=== PATIENT | male | born 1955 | race Caucasian/White ===

== ENCOUNTER 2016-12-02 11:10 | Inpatient (IN) | payer BC ==
[~2016-12-02] VITALS: Ht 177.8 cm; Wt 125.0 kg
[~2016-12-02 11:10] MED LIST: AMAR4TAB PO; ASPI81CH CHEW; AVANDAMET PO; DIOV80TA4 PO; FISH1000 PO; FURO20TA PO; LANTUS2P SQ; LANTUSP SQ; METF500T PO; METO25TA3 PO; NOVOLOGP2 SQ; SIMV80TA PO; VALS1TAB64 PO; ZOCO40TA PO
[2016-12-02] MEDS ORDERED: BISACODYL 10 MG SUPP RECTAL PRN (12:15)
[2016-12-02] MEDS ORDERED: LACTULOSE SYRUP 20 GM/30 ML CUP PO PRN (12:15)
[2016-12-02] MEDS ORDERED: ACETAMINOPHEN 325 MG TAB PO PRN ×2 (12:15)
[2016-12-02] MEDS ORDERED: DEXTROSE 50% IN WATER 50 ML VIAL(D50) IV PRN (12:15)
[2016-12-02] MEDS ORDERED: MAGNESIUM HYDROXIDE SUSP 30 ML CUP PO PRN (12:15)
[2016-12-02] MEDS ORDERED: ONDANSETRON HCL 4 MG/2 ML VIAL IVP PRN (12:15)
[2016-12-02] MEDS ORDERED: GLUCAGON 1 MG/ML VIAL OTHER PRN (12:15)
[2016-12-02] MEDS ORDERED: SENNOSIDES 8.6 MG TAB PO PRN (12:15)
[2016-12-02] MEDS ORDERED: ACETAMINOPHEN/HYDROcodone 325 MG/5 MG TAB PO PRN (12:15)
[2016-12-02] MEDS ORDERED: NALOXONE HCL 0.4 MG/ML AMP IV PRN (12:15)
[2016-12-02 16:00] VITALS: BP 147/69; PULSE 78; RESP 18; TEMP 98.3; O2SAT 96
[2016-12-02] MEDS ORDERED: Vancomycin Consult Pharmacy 1 EA OTHER SCH (16:45)
--- NOTE | 2016-12-02 17:02 | HHI.HP ---
[facility] Non-Staff Admission Diagnosis Diagnoses: Chief Complaint: Right foot pain, swelling Travel History International Travel<30 Days: No Contact w/Intl Traveler <30 Da: No Traveled to Known Affected Are: No History of Present Illness Written by Jeffery Webber, acting as scribe for Dr. Corey on 12/02/16 at 16: 36. Patient is a 61-year-old male with primary medical history of diabetes, hypertension, GERD, HLD who came in to the emergency department in [place] for evaluation of right foot pain and swelling. He was subsequently transferred to the [facility]. Patient states that 3 months ago he twisted his ankle but has never seen anybody to evaluate because he was able to walk, move around and never really had problems until about a week ago when he started noticing the right foot pain, swelling, and redness of his foot. He was due to see insole stiffener in [facility] on Sunday. But because of increasing pain he was unable to wait for the appointment that he went to the ED for evaluation. He states he noticed his right foot has been red and swollen and it goes all the way to his right leg mid calf portion. Also reported to have some bleeding today after he took off his shoes in the ED. states right pain has subsided rated 6/10, dull aching, nonradiating, relieved by pain medication, not aggravated by anything. Reports caffeine headache today, light cough but does not expectorate anything. Occasional diarrhea due to metformin use. Otherwise, denies SOB/ dyspnea. Denies chest pain, palpitations, dizziness. Denies fevers , chills, n/v. Denies dysuria. Foot x-ray showed significant soft tissue swelling is noted of the second toe. There is a focal deformity involving the proximal phalanx at the interphalangeal joint. There is a depression of the articulating surface and focal cortical disruption. Chest x-ray showed no acute disease Review of Systems Except as stated in HPI: all other systems reviewed are Neg Past Family Social History Past Medical History DM 2 Hypertension Hand trauma GERD HLD Past Surgical History Right knee arthroscopy Bilateral carpal tunnel release CABG 4 Stents 2 Reported Medications Reported Meds & Active Scripts Active Reported Lantus Inj (Insulin Glargine) 1,000 Unit/10 Ml Vial 90 Units SQ HS Novolog Inj (Insulin Aspart) 1,000 Unit/10 Ml Vial 18 Units SQ ACHS Max dose at bedtime:( )units; sugars less than 70,(0) units; sugars 150-199,(5) units; sugars 200-249,(10) units; sugars 250-299,(15) units; sugars 300-349,(20)units; sugars greater than 349,(25)units Metoprolol Tartrate 25 Mg Tab 25 Mg PO BID Simvastatin 80 Mg Tab 80 Mg PO DAILY Metformin (Metformin HCl) 500 Mg Tab 500 Mg PO BIDPC With meals Furosemide 20 Mg Tab 20 Mg PO BID Aspirin 81 Mg Chew 81 Mg CHEW DAILY Valsartan 80 Mg Tab 80 Mg PO DAILY Allergies: Coded Allergies: No Known Allergies (Verified , 12/02/16) Active Ordered Medications Current Medications Medications (Trade) Dose Ordered Sig/Librado Route Start Time Stop Time Status Last Admin (Tylenol) 650 mg Q4H PRN PO 12/02/16 12:15 (Zofran Inj) 4 mg Q6H PRN IVP 12/02/16 12:15 (Heparin Inj) 5,000 units Q12H SQ 12/02/16 17:00 (Tylenol) 650 mg Q6H PRN PO 12/02/16 12:15 ([place] 5-325 Mg) 1 tab Q4H PRN PO 12/02/16 12:15 ([place] 7.5-325 Mg) 1 tab Q4H PRN PO 12/02/16 12:15 (Narcan Inj) 0.4 mg UNSCH PRN IV 12/02/16 12:15 (Sachi-Colace) 1 tab BID PO 12/02/16 21:00 (Milk Of Magnesia Liq) 30 ml Q12H PRN PO 12/02/16 12:15 (Senokot) 17.2 mg Q12H PRN PO 12/02/16 12:15 (Dulcolax Supp) 10 mg DAILY PRN RECTAL 12/02/16 12:15 (Lactulose Liq) 30 ml DAILY PRN PO 12/02/16 12:15 (D50w (Vial) Inj) 50 ml UNSCH PRN IV 12/02/16 12:15 Glucagon 1 mg 1 mg UNSCH PRN OTHER 12/02/16 12:15 (NS + KCl 20 Meq Inj) 1,000 ml @ 42 mls/hr [id number] IV 12/02/16 16:00 Family History Family history of heart disease and diabetes Social History Rare alcohol use Denies tobacco use Denies illicit drug use Physical Exam Vital Signs Vital Signs Date Time Temp Pulse Resp B/P Pulse Ox O2 Delivery O2 Flow Rate FiO2 12/02/16 16:00 98.3 78 18 147/69 96 Physical Exam GENERAL: This is a well-nourished, well-developed patient, in no apparent distress. SKIN: Right foot edema +2, erythema 2nd toe extending to right lower extremity. Wound opening plantar area, proximal to the 2nd toe, scant amount serous fluid. HEAD: Atraumatic. Normocephalic. EYES: Pupils equal round and reactive. Extraocular motions intact. No scleral icterus. No injection or drainage. ENT: Nose without bleeding, purulent drainage or septal hematoma. Throat without erythema, tonsillar hypertrophy or exudate. Uvula midline. Airway patent. NECK: Trachea midline. Supple. CARDIOVASCULAR: Regular rate and rhythm without murmurs, gallops, or rubs. RESPIRATORY: Clear to auscultation. Breath sounds equal bilaterally. No wheezes , rales, or rhonchi. GASTROINTESTINAL: Abdomen soft, non-tender, nondistended. Bowel sounds active 4. Non-guarding. MUSCULOSKELETAL: Extremities without clubbing, cyanosis, right lower extremity + 2 edema. NEUROLOGICAL: Awake and alert. Oriented to person, time, place. Motor and sensory grossly within normal limits. Normal speech. Laboratory WBC 10.1 Neutrophil % 76.6 BUN 17 Creatinine 1.40 EGFR 51 Lactic acid 1.9 Imaging Foot x-ray showed significant soft tissue swelling is noted of the second toe. There is a focal deformity involving the proximal phalanx at the interphalangeal joint. There is a depression of the articulating surface and focal cortical disruption. Chest x-ray showed no acute disease Assessment and Plan Problem List: (1) Diabetes ICD Code: E11.9 Status: Chronic (2) Osteomyelitis of ankle or foot, acute ICD Code: M86.179 Status: Acute (3) SETH (acute kidney injury) ICD Code: N17.9 Status: Acute (4) HTN (hypertension) ICD Code: I10 Status: Acute Assessment and Plan Patient is a 61-year-old male with primary medical history of diabetes, hypertension, GERD, HLD who came in to the emergency department in [place] for evaluation of right foot pain and swelling. He was subsequently transferred to the main hospital. Osteomyelitis Cellulitis right foot, leg - History of diabetes, 3 months ago twisted his ankle was never evaluated. 1 week right foot swelling and pain. - Foot x-ray showed significant soft tissue swelling is noted of the second toe. There is a focal deformity involving the proximal phalanx at the interphalangeal joint. There is a depression of the articulating surface and focal cortical disruption. - Vancomycin IV, Zosyn IV - MRI of the foot, follow-up results - Podiatry consult input appreciated - Check labs ESR, CRP, follow-up labs tomorrow CBC, BMP - IV fluids for hydration - Pain management - Discuss and explained with patient and all the plans including imaging studies, possible surgical intervention and amputation, risks. All questions have been addressed. Agrees with plan. DM 2 - Hold metformin for now secondary to increased creatinine. - Start home medication basal insulin, insulin sliding scale - Monitor Accu-Cheks - Monitor for hypoglycemia Acute kidney injury, possible CK D - Unknown baseline - Possibly have diabetic nephropathy - Avoid nephrotoxins - IV fluids for hydration - Trend BMP CAD, Hx CABG 4 HTN - Continue aspirin 81 mg, valsartan 80 mg daily, metoprolol 25 mg twice a day - Lasix 20 mg twice a day - Monitor BP trend Cough - Chest x-ray showed no acute disease DVT prop heparin This note was transcribed by natalia Webber. I, Dr. Greyson Corey personally performed the history, physical exam, and medical decision making; and confirmed the accuracy of the information in the transcribed note. Authenticated by Dr. Greyson Corey on 12/02/16 at 17:50. Code Status Full code Discussed Condition With Patient, , nursing, ED attending Physician Certification 2 Midnight Certification Type: Admission for Inpatient Services Order for Inpatient Services The services are ordered in accordance with Medicare regulations or non- Medicare payer requirements, as applicable. In the case of services not specified as inpatient-only, they are appropriately provided as inpatient services in accordance with the 2-midnight benchmark. Estimated LOS (days): 3 days is the estimated time the patient will need to remain in the hospital, assuming treatment plan goals are met and no additional complications. Post-Hospital Plan: Not yet determined Jeffery Mcfadden Dec 02, 2016 17:01 Greyson Corey MD Dec 02, 2016 17:51
[2016-12-02] MEDS: NS + KCL 20 MEQ INJ 1,000 ML IV SCH (17:33)
[2016-12-02] MEDS: PIPERACIL-TAZO 3.375 GM PREMIX 50 ML IV SCH (17:33)
[2016-12-02] MEDS: FUROSEMIDE 20 MG TAB PO SCH (17:34)
[2016-12-02] MEDS: HEPARIN SODIUM - SQ 10,000 UNITS/ML VIAL SQ SCH (17:34)
[2016-12-02] MEDS: INSULIN ASPART SUPPLEMENTAL SCALE SQ SCH ×2 (17:38→23:13)
[2016-12-02 18:01] VITALS: PULSE 80
[2016-12-02 19:04] VITALS: BP 143/68; PULSE 77; RESP 18; TEMP 97.7; O2SAT 95
[2016-12-02] MEDS ORDERED: GADODIAMIDE PF 287 MG/ML 20 ML VIAL (for RAD MRI) IV ONE (20:20)
--- NOTE | 2016-12-02 20:42 | RADRPT ---
EXAM DATE/TIME: 12/02/2016 19:56 This report includes an Addendum and supersedes previous reports for this exam. [facility] COMPARISON: FOOT RIGHT COMPLETE ([id number]), December 02, 2016, 9:54. INDICATIONS : Osteomyelitis. CONTRAST: 20 cc Omniscan (gadodiamide) IV MEDICAL HISTORY : Hypertension. Diabetes mellitus type 2. SURGICAL HISTORY : CABG ENCOUNTER: Initial ACUITY: 1 week PAIN SCORE: 0/10 LOCATION: Right foot TECHNIQUE: Multiplanar, multisequence MRI examination was performed without contrast and after the intravenous a dministration of gadolinium. FINDINGS: There is abnormal marrow involving the second proximal phalanx with possibly a fracture at this site as well. It extends to the PIP joint and there is edema and enhancement of the surrounding soft tissues. CONCLUSION: Abnormal marrow of the second proximal phalanx could represent osteomyelitis with possibly superimpos ed fracture and clinical correlation is needed. Maciej Taveras MD on December 02, 2016 at 20:36 Board Certified Radiologist. This report was verified electronically. ADDENDUM: The patient has a history of a fracture of the second proximal phalanx involving the articular surfac e at the PIP joint. The findings of abnormal bone marrow edema, and enhancement of the marrow and sof t tissues surrounding the second digit can be related to the actual fracture however in the upper upp er clinical setting osteomyelitis can also have this appearance. There is a prominent amount of subcu taneous edema identified. No focal fluid collections are seen to suggest abscess at this time. Jaerd Tomlin MD on December 03, 2016 at 4:02 Board Certified Radiologist. This report was verified electronically.
[2016-12-02] MEDS ORDERED: INSULIN ASPART 1,000 UNITS/10 ML VIAL SQ SCH (21:00)
[2016-12-02 21:41] VITALS: PULSE 78
[2016-12-02] MEDS: DOCUSATE SODIUM 50 MG/SENNA 8.6 MG TAB PO SCH (23:10)
[2016-12-02] MEDS: METOPROLOL TARTRATE 25 MG TAB PO SCH (23:10)
[2016-12-02] MEDS: INSULIN DETEMIR 100 UNITS/ML VIAL SQ SCH (23:14)
[2016-12-02 23:31] VITALS: BP 137/62; PULSE 89; RESP 18; TEMP 98.4; O2SAT 96
[2016-12-03] MEDS: PIPERACIL-TAZO 3.375 GM PREMIX 50 ML IV SCH ×3 (02:28→17:27)
[2016-12-03] MEDS: VANCOMYCIN 1,500 MG/NS 500 ML IV SCH ×2 (03:33)
[2016-12-03 03:45] VITALS: BP 145/73; PULSE 75; RESP 17; TEMP 97.6; O2SAT 97
--- NOTE | 2016-12-03 03:54 | PD.CONS ---
History of Present Illness Service podiatry Consult Requested By ED Reason for Consult infection of R foot Primary Care Physician Non-Staff Diagnoses: History of Present Illness Patient twisted ankle 3 mos ago and never had foot/ankle evaluated. He says he had pain initially after the injury, but did not have pain again until 1 week ago. He was found to have bony abnormality noted in 2nd toe on XRay of foot and was sent here from [facility] ED. He also has wound to plantar forefoot area of unknown age with purulent drainage and erythema streaking up his leg with swelling to the foot/ankle. Past Family Social History Allergies: Coded Allergies: No Known Allergies (Verified , 12/02/16) Past Medical History DM 2 Hypertension Hand trauma GERD HLD Past Surgical History Right knee arthroscopy Bilateral carpal tunnel release CABG 4 Stents 2 Active Ordered Medications Current Medications Medications (Trade) Dose Ordered Sig/Librado Route Start Time Stop Time Status Last Admin (Tylenol) 650 mg Q4H PRN PO 12/02/16 12:15 (Zofran Inj) 4 mg Q6H PRN IVP 12/02/16 12:15 (Heparin Inj) 5,000 units Q12H SQ 12/02/16 17:00 12/02/16 17:34 (Tylenol) 650 mg Q6H PRN PO 12/02/16 12:15 ([place] 5-325 Mg) 1 tab Q4H PRN PO 12/02/16 12:15 ([place] 7.5-325 Mg) 1 tab Q4H PRN PO 12/02/16 12:15 (Narcan Inj) 0.4 mg UNSCH PRN IV 12/02/16 12:15 (Sachi-Colace) 1 tab BID PO 12/02/16 21:00 12/02/16 23:10 (Milk Of Magnesia Liq) 30 ml Q12H PRN PO 12/02/16 12:15 (Senokot) 17.2 mg Q12H PRN PO 12/02/16 12:15 (Dulcolax Supp) 10 mg DAILY PRN RECTAL 12/02/16 12:15 (Lactulose Liq) 30 ml DAILY PRN PO 12/02/16 12:15 (D50w (Vial) Inj) 50 ml UNSCH PRN IV 12/02/16 12:15 Glucagon 1 mg 1 mg UNSCH PRN OTHER 12/02/16 12:15 (NS + KCl 20 Meq Inj) 1,000 ml @ 42 mls/hr [id number] IV 12/02/16 16:00 12/02/16 17:33 (Aspirin Chew) 81 mg DAILY CHEW 12/03/16 09:00 (Lasix) 20 mg BID@09,18 PO 12/02/16 18:00 12/02/16 17:34 (Levemir Inj) 90 units HS SQ 12/02/16 21:00 12/02/16 23:14 (Lopressor) 25 mg BID PO 12/02/16 21:00 12/02/16 23:10 Valsartan 80 mg 80 mg DAILY PO 12/03/16 09:00 Pharmacy Profile Note 0 ml @ 0 mls/hr UNSCH OTHER 12/02/16 16:45 (Zosyn 3.375 Gm Premix) 50 ml @ 100 mls/hr Q8H IV 12/02/16 18:00 12/03/16 02:28 Atorvastatin Calcium 40 mg 40 mg DAILY PO 12/03/16 09:00 (Vancomycin Inj/ NS 500 ml Inj) 515 ml @ 257.5 mls/ hr Q24H IV 12/03/16 02:00 12/03/16 03:33 Miscellaneous Information SPECIFIC LAB TO BE VALDO... ONCE ONCE .XX 12/05/16 01:45 12/05/16 01:46 (Pneumovax-23 Inj) 25 mcg ONCE ONCE IM 12/03/16 10:00 12/03/16 10:01 Family History Family history of heart disease and diabetes Social History Rare alcohol use Denies tobacco use Denies illicit drug use Physical Exam Vital Signs Vital Signs Date Time Temp Pulse Resp B/P Pulse Ox O2 Delivery O2 Flow Rate FiO2 12/02/16 23:31 98.4 89 18 137/62 96 12/02/16 21:41 78 12/02/16 19:04 97.7 77 18 143/68 95 12/02/16 18:01 80 12/02/16 16:00 98.3 78 18 147/69 96 Physical Exam R foot with palpable pedal pulses. Erythema to dorsal forefoot and edema to R foot diffusely. Plantar to 2nd toe area at ball of foot has ulceration present, 0.3 cm diameter , with positive probe to bone. Milkly white purulence expressed from the area with pain to palpation. Erythema and edema to 2nd digit. Sausaging present. Sensation absent to light touch/sharp-dull. Laboratory Laboratory Tests Test 12/03/16 05:30 White Blood Count 9.7 TH/MM3 Red Blood Count 4.40 MIL/MM3 Hemoglobin 13.0 GM/DL Hematocrit 38.2 % Mean Corpuscular Volume 86.7 FL Mean Corpuscular Hemoglobin 29.6 PG Mean Corpuscular Hemoglobin 34.1 % Concent Red Cell Distribution Width 13.5 % Platelet Count 270 TH/MM3 Mean Platelet Volume 8.5 FL Neutrophils (%) (Auto) 73.4 % Lymphocytes (%) (Auto) 14.0 % Monocytes (%) (Auto) 7.6 % Eosinophils (%) (Auto) 4.5 % Basophils (%) (Auto) 0.5 % Neutrophils # (Auto) 7.1 TH/MM3 Lymphocytes # (Auto) 1.4 TH/MM3 Monocytes # (Auto) 0.7 TH/MM3 Eosinophils # (Auto) 0.4 TH/MM3 Basophils # (Auto) 0.0 TH/MM3 CBC Comment DIFF FINAL Differential Comment Sodium Level 137 MEQ/L Potassium Level 3.6 MEQ/L Chloride Level 101 MEQ/L Carbon Dioxide Level 24.6 MEQ/L Anion Gap 11 MEQ/L Blood Urea Nitrogen 18 MG/DL Creatinine 1.25 MG/DL Estimat Glomerular Filtration 59 ML/MIN Rate Random Glucose 204 MG/DL Calcium Level 8.8 MG/DL Imaging Last Impressions Foot MRI 12/02/16 0000 Signed Impressions: Service Date/Time: Friday, December 02, 2016 19:56 - CONCLUSION: Abnormal marrow of the second proximal phalanx could represent osteomyelitis with possibly superimposed fracture and clinical correlation is needed. Maciej Taveras MD Assessment and Plan Assessment and Plan Abscess R foot with osteomyelitis R 2nd toe NPO now To OR for I&D R foot with possible amputation R 2nd toe. Discussed MRI findings correlated clinically with positive probe to bone and osteomyelitis is likely present to 2nd toe. Isael Whitt DPM Dec 03, 2016 03:54
[2016-12-03] MEDS: HEPARIN SODIUM - SQ 10,000 UNITS/ML VIAL SQ SCH ×2 (06:34→17:00)
[2016-12-03] MEDS: INSULIN ASPART SUPPLEMENTAL SCALE SQ SCH ×4 (07:00→20:32)
[2016-12-03 07:20] LABS: AUTOMATED NEUTROPHIL # 7.1 TH/MM3 (1.8-7.7); BASOPHIL % 0.5 % (0.0-2.0); EOSINOPHIL # 0.4 TH/MM3 (0-0.4); EOSINOPHIL % 4.5 % (0.0-4.0); HEMATOCRIT 38.2 % (39.0-51.0); HEMO FLAGS DIFF FINAL; LYMPHOCYTE # 1.4 TH/MM3 (1.0-4.8); MEAN CELL VOLUME 86.7 FL (80.0-100.0); MEAN CORPUSCULAR HEMOGLOBIN 29.6 PG (27.0-34.0); MEAN CORPUSCULAR HGB CONC 34.1 % (32.0-36.0); MONO % 7.6 % (0.0-8.0); NEUT % 73.4 % (16.0-70.0); PLATELET COUNT 270 TH/MM3 (150-450); RED CELL DISTRIBUTION WIDTH 13.5 % (11.6-17.2); WHITE BLOOD COUNT 9.7 TH/MM3 (4.0-11.0)
[2016-12-03 07:40] VITALS: PULSE 67
[2016-12-03 07:48] LABS: BICARBONATE 24.6 MEQ/L (21.0-32.0); POTASSIUM 3.6 MEQ/L (3.5-5.1)
[2016-12-03 08:05] VITALS: BP 132/71; PULSE 65; RESP 19; TEMP 98.5; O2SAT 95
[2016-12-03] MEDS: ATORVASTATIN 40 MG TAB PO SCH (08:29)
[2016-12-03] MEDS: VALSARTAN 80 MG TAB PO SCH (08:29)
[2016-12-03] MEDS: ASPIRIN 81 MG CHEW TAB CHEW SCH (08:29)
[2016-12-03] MEDS: FUROSEMIDE 20 MG TAB PO SCH ×2 (08:30→18:04)
[2016-12-03] MEDS: DOCUSATE SODIUM 50 MG/SENNA 8.6 MG TAB PO SCH ×2 (08:30→20:21)
[2016-12-03] MEDS: METOPROLOL TARTRATE 25 MG TAB PO SCH ×2 (08:30→20:20)
[2016-12-03] MEDS ORDERED: NON-FORMULARY DRUG (Simvastatin 80 MG) PO SCH (09:00)
[2016-12-03] MEDS ORDERED: INFLUENZA VIRUS VACCINE (QUADRIVALENT) 0.5 ML SYR IM ONE (10:00)
[2016-12-03] MEDS ORDERED: PNEUMOCOCCAL POLYVALENT INJ 25 MCG/0.5 ML SYR IM ONE (10:00)
[2016-12-03 12:00] VITALS: BP 131/71; PULSE 63; RESP 18; TEMP 99.1; O2SAT 96
[2016-12-03] MEDS ORDERED: PROPOFOL 200 MG/20 ML AMP IV ONE (12:34)
[2016-12-03] MEDS ORDERED: ONDANSETRON HCL 4 MG/2 ML VIAL IV PUSH ONE (12:34)
--- NOTE | 2016-12-03 12:38 | EKG ---
Date Performed: 12/03/2016 Time Performed: 09:38:30 PTAGE: 61 years EKG: Sinus rhythm WITH FIRST DEGREE AV BLOCK INFERIOR MYOCARDIAL INFARCTION ABNORMAL ECG NO PREVIOUS TRACING DOCTOR: Vidal Milton Interpretating Date/Time 12/03/2016 12:34:03
--- NOTE | 2016-12-03 14:58 | HHI.PR ---
Subjective Remarks Follow-up cellulitis, osteomyelitis. Patient feels that his right foot is getting better. Swelling and erythema have decreased. He is going to the operating room this afternoon for amputation of the second toe. Objective Vitals Vital Signs Date Time Temp Pulse Resp B/P Pulse Ox O2 Delivery O2 Flow Rate FiO2 12/03/16 12:00 99.1 63 18 131/71 96 12/03/16 08:05 98.5 65 19 132/71 95 12/03/16 07:40 67 12/03/16 03:45 97.6 75 17 145/73 97 12/02/16 23:31 98.4 89 18 137/62 96 12/02/16 21:41 78 12/02/16 19:04 97.7 77 18 143/68 95 12/02/16 18:01 80 12/02/16 16:00 98.3 78 18 147/69 96 I/O 12/02/16 12/02/16 12/02/16 12/03/16 12/03/16 12/03/16 07:00 15:00 23:00 07:00 15:00 23:00 Intake Total 640 ml 600 ml Balance 640 ml 600 ml Intake Oral 640 ml IV Total 600 ml # Voids 2 Result Diagram: 12/03/16 0530 12/03/16 0530 Imaging Last Impressions Foot MRI 12/02/16 0000 Signed Impressions: Service Date/Time: Friday, December 02, 2016 19:56 - CONCLUSION: Abnormal marrow of the second proximal phalanx could represent osteomyelitis with possibly superimposed fracture and clinical correlation is needed. Maciej Taveras MD ADDENDUM: The patient has a history of a fracture of the second proximal phalanx involving the articular surface at the PIP joint. The findings of abnormal bone marrow edema, and enhancement of the marrow and soft tissues surrounding the second digit can be related to the actual fracture however in the upper upper clinical setting osteomyelitis can also have this appearance. There is a prominent amount of subcutaneous edema identified. No focal fluid collections are seen to suggest abscess at this time. Jared Tomlin MD Objective Remarks General: No acute distress. Heart: Regular rate and rhythm. No murmur. Lungs: Clear to auscultation bilaterally. No wheezes, rales, or rhonchi. Breathing is nonlabored. Abdomen: Soft, nontender, nondistended. Extremities: Right foot erythema and edema are improving. Ulcerative lesion on the ball of the foot at the second MTP joint. Psych: Alert and oriented. Urinary Catheter: No Vascular Central Line Catheter: No A/P Problem List: (1) Diabetes ICD Code: E11.9 Status: Chronic (2) Osteomyelitis of ankle or foot, acute ICD Code: M86.179 Status: Acute (3) SETH (acute kidney injury) ICD Code: N17.9 Status: Acute (4) HTN (hypertension) ICD Code: I10 Status: Acute Assessment and Plan 1. Cellulitis, osteomyelitis of the right foot: Erythema and edema are improving. Appreciate podiatry recommendations. Going to the OR today for debridement and amputation of the right second toe. Continue antibiotics. Await culture results. 2. Diabetes mellitus type 2: Monitor Accu-Cheks and cover with sliding scale insulin. Continue Levemir. 3. Acute kidney injury: Possible chronic kidney disease secondary to diabetic nephropathy. Continue IV fluids. 4. Hypertension: Continue valsartan, metoprolol, Lasix. 5. DVT prophylaxis: Heparin. Greyson Corey MD Dec 03, 2016 14:58
[2016-12-03] MEDS: NS + KCL 20 MEQ INJ 1,000 ML IV SCH (15:49)
--- NOTE | 2016-12-03 16:59 | HHI.PR ---
Immediate Post Op Note Procedure Date: Dec 03, 2016 Pre Op Diagnosis: Osteomyelitis R 2nd toe Post Op Diagnosis: Same Surgeon: Isael Whitt DPM Analytical Research Program Manager(s): Staff Procedure: Amputation R 2nd toe Findings: Consistent with diagnosis. R 2nd plantar base of toe area with ulceration 0.3cm diameter and probing to bone with mild purulent drainage present. 2nd digit with erythema, edema, and sausaging present with erythema to dorsal forefoot, as well. 2nd digit amputated with two semi-elliptical incisions medially and laterally encompassing the plantar wound and toe to disarticulate toe at 2nd MTP joint. Small amount of plantar necrotic fat pad noted with minimal purulence. Irrigation with 3L NS, followed by partial closure with 2-0 nylon to dorsal incision and part of plantar incision site, followed by 1/2'' iodoform gauze packing to plantar incision site. Dressing with xeroform, 4x4, cast padding, abd pad, sebastian to R foot. Additional Information: All infected bone and tissue removed, recommend 2 weeks oral antibiotics per culture results upon d/c. Daily packing changes ordered per nursing to R foot and needs to continue daily upon d/c NWB R foot with surgical shoe, walker vs crutches per PT recommendations. Follow up in clinic 1-2 weeks for wound check and eval for suture removal. Complications: none Specimen(s) removed: 1. 2nd toe to pathology 2.Culture R foot Estimated blood loss: 10mL Anesthesia: General Drains: None IVF Tourniquet time (min at mmHg) 7 min @ 250mmHg R ankle Patient to: PACU Patient Condition: Good Date/Time of Procedure: SEE SURGICAL CARE RECORD Isael Whitt DPM Dec 03, 2016 16:59
[2016-12-03] MEDS ORDERED: fentaNYL CITRATE 250 MCG/5 ML AMP ONE (17:01)
--- NOTE | 2016-12-03 17:23 | RADRPT ---
EXAM DATE/TIME: 12/03/2016 17:07 [facility] COMPARISON: FOOT RIGHT COMPLETE ([id number]), December 02, 2016, 9:54. INDICATIONS : Post op. Cellulitis and abscess right foot. MEDICAL HISTORY : None. SURGICAL HISTORY : None. ENCOUNTER: Subsequent ACUITY: 2 days PAIN SCORE: 5/10 LOCATION: Right lateral FINDINGS: There is evidence for amputation of the second digit at the level of the metatarsophalangeal joint. CONCLUSION: Amputation since the prior exam. Maciej Taveras MD on December 03, 2016 at 17:21 Board Certified Radiologist. This report was verified electronically.
[2016-12-03] MEDS ORDERED: DO NOT ADM ANY ANTICOAGULANT DRUGS PRN (17:30)
[2016-12-03 20:00] VITALS: BP 128/70; PULSE 66; RESP 17; TEMP 97.2; O2SAT 98
[2016-12-03] MEDS: ACETAMINOPHEN/HYDROcodone 325 MG/7.5 MG TAB PO PRN (20:20)
[2016-12-03] MEDS: INSULIN DETEMIR 100 UNITS/ML VIAL SQ SCH (20:32)
[2016-12-03] MEDS ORDERED: MORPHINE SULFATE 8 MG/ML INJ IV PUSH ONE (22:00)
[2016-12-04] VITALS (10 sets, daily range): BP systolic 128–141; BP diastolic 67–74; PULSE 57–84; RESP 16–18; TEMP 95.5–98.1; O2SAT 94–98
[2016-12-04] MEDS: ACETAMINOPHEN/HYDROcodone 325 MG/7.5 MG TAB PO PRN ×4 (01:29→22:52)
[2016-12-04] MEDS: PIPERACIL-TAZO 3.375 GM PREMIX 50 ML IV SCH ×3 (01:30→17:07)
[2016-12-04] MEDS: VANCOMYCIN 1,500 MG/NS 500 ML IV SCH ×2 (01:30)
[2016-12-04] MEDS ORDERED: MORPHINE SULFATE 8 MG/ML INJ IV PUSH ONE (02:45)
[2016-12-04] MEDS: HEPARIN SODIUM - SQ 10,000 UNITS/ML VIAL SQ SCH ×2 (05:00→17:08)
[2016-12-04] MEDS: INSULIN ASPART SUPPLEMENTAL SCALE SQ SCH ×4 (05:57→20:25)
[2016-12-04 06:27] LABS: AUTOMATED NEUTROPHIL # 6.7 TH/MM3 (1.8-7.7); BASOPHIL % 0.3 % (0.0-2.0); EOSINOPHIL # 0.4 TH/MM3 (0-0.4); EOSINOPHIL % 4.6 % (0.0-4.0); HEMATOCRIT 36.3 % (39.0-51.0); HEMO FLAGS DIFF FINAL; LYMPH % 13.3 % (9.0-44.0); LYMPHOCYTE # 1.2 TH/MM3 (1.0-4.8); MEAN CELL VOLUME 87.1 FL (80.0-100.0); MEAN CORPUSCULAR HGB CONC 34.5 % (32.0-36.0); MONO % 8.7 % (0.0-8.0); NEUT % 73.1 % (16.0-70.0); PLATELET COUNT 247 TH/MM3 (150-450); RED BLOOD COUNT 4.16 MIL/MM3 (4.50-5.90); RED CELL DISTRIBUTION WIDTH 13.8 % (11.6-17.2); WHITE BLOOD COUNT 9.2 TH/MM3 (4.0-11.0)
[2016-12-04 06:48] LABS: POTASSIUM 3.7 MEQ/L (3.5-5.1)
--- NOTE | 2016-12-04 08:30 | PD.POD ---
Subjective Pain score: 5 Remarks pain was bad last night, improved currently. Past Med/Surg/Social History Social History Smoking Status: Never Smoker Objective Vital Signs Vital Signs Date Time Temp Pulse Resp B/P Pulse Ox O2 Delivery O2 Flow Rate FiO2 12/04/16 04:19 Nasal Cannula 3.00 12/04/16 04:00 96.4 60 17 136/74 98 12/04/16 01:36 57 12/04/16 00:00 97.0 62 17 128/72 98 12/03/16 20:00 97.2 66 17 128/70 98 12/03/16 17:45 66 16 120/63 98 Nasal Cannula 3 12/03/16 17:30 95 16 117/63 97 Nasal Cannula 3 12/03/16 17:15 68 16 114/68 98 Nasal Cannula 3 12/03/16 17:00 73 16 116/62 96 Nasal Cannula 3 12/03/16 16:49 98.4 77 16 127/65 96 Nasal Cannula 3 12/03/16 12:00 99.1 63 18 131/71 96 Coded Allergies: No Known Allergies (Verified , 12/02/16) Medications and IVs Administered Medications Medications (Trade) Dose Ordered Sig/Librado Route PRN Reason Start Time Stop Time Status Last Admin Dose Admin Heparin Sodium (Porcine) (Heparin Inj) 5,000 units Q12H SQ 12/02/16 17:00 12/03/16 06:34 Acetaminophen/ Hydrocodone Bitart ([place] 7.5-325 Mg) 1 tab Q4H PRN PO PAIN SCALE 6 TO 10 12/02/16 12:15 12/04/16 05:53 Senna/Docusate Sodium 1 tab 1 tab BID PO 12/02/16 21:00 12/02/16 23:10 Potassium Chloride/Sodium Chloride (NS + KCl 20 Meq Inj) 1,000 ml @ 42 mls/hr [id number] IV 12/02/16 16:00 12/03/16 15:49 Aspirin (Aspirin Chew) 81 mg DAILY CHEW 12/03/16 09:00 12/03/16 08:29 Furosemide (Lasix) 20 mg BID@09,18 PO 12/02/16 18:00 12/03/16 18:04 Insulin Detemir (Levemir Inj) 90 units HS SQ 12/02/16 21:00 12/03/16 20:32 Metoprolol Tartrate (Lopressor) 25 mg BID PO 12/02/16 21:00 12/03/16 20:20 Valsartan 80 mg 80 mg DAILY PO 12/03/16 09:00 12/03/16 08:29 Piperacillin Sod/ Tazobactam Sod (Zosyn 3.375 Gm Premix) 50 ml @ 100 mls/hr Q8H IV 12/02/16 18:00 12/04/16 01:30 Atorvastatin Calcium 40 mg 40 mg DAILY PO 12/03/16 09:00 12/03/16 08:29 Vancomycin HCl/ Sodium Chloride (Vancomycin Inj/ NS 500 ml Inj) 515 ml @ 257.5 mls/ hr Q24H IV 12/03/16 02:00 12/04/16 01:30 Other Results Laboratory Tests Test 12/03/16 12/04/16 05:30 05:49 White Blood Count 9.7 TH/MM3 9.2 TH/MM3 Red Blood Count 4.40 MIL/MM3 4.16 MIL/MM3 Hemoglobin 13.0 GM/DL 12.5 GM/DL Hematocrit 38.2 % 36.3 % Mean Corpuscular Volume 86.7 FL 87.1 FL Mean Corpuscular Hemoglobin 29.6 PG 30.0 PG Mean Corpuscular Hemoglobin 34.1 % 34.5 % Concent Red Cell Distribution Width 13.5 % 13.8 % Platelet Count 270 TH/MM3 247 TH/MM3 Mean Platelet Volume 8.5 FL 8.1 FL Neutrophils (%) (Auto) 73.4 % 73.1 % Lymphocytes (%) (Auto) 14.0 % 13.3 % Monocytes (%) (Auto) 7.6 % 8.7 % Eosinophils (%) (Auto) 4.5 % 4.6 % Basophils (%) (Auto) 0.5 % 0.3 % Neutrophils # (Auto) 7.1 TH/MM3 6.7 TH/MM3 Lymphocytes # (Auto) 1.4 TH/MM3 1.2 TH/MM3 Monocytes # (Auto) 0.7 TH/MM3 0.8 TH/MM3 Eosinophils # (Auto) 0.4 TH/MM3 0.4 TH/MM3 Basophils # (Auto) 0.0 TH/MM3 0.0 TH/MM3 CBC Comment DIFF FINAL DIFF FINAL Differential Comment Laboratory Tests Test 12/03/16 12/04/16 05:30 05:49 Sodium Level 137 MEQ/L 137 MEQ/L Potassium Level 3.6 MEQ/L 3.7 MEQ/L Chloride Level 101 MEQ/L 103 MEQ/L Carbon Dioxide Level 24.6 MEQ/L 27.0 MEQ/L Anion Gap 11 MEQ/L 7 MEQ/L Blood Urea Nitrogen 18 MG/DL 17 MG/DL Creatinine 1.25 MG/DL 1.30 MG/DL Estimat Glomerular Filtration 59 ML/MIN 56 ML/MIN Rate Random Glucose 204 MG/DL 129 MG/DL Calcium Level 8.8 MG/DL 8.6 MG/DL Microbiology Date/Time Procedure Status Source Growth 12/03/16 16:28 Gram Stain Received Abscess Foot Pending 12/03/16 16:28 Wound Culture Received Abscess Foot Pending 12/03/16 16:28 Acid Fast Stain Received Abscess Foot Pending 12/03/16 16:28 Mycobacterial Culture Received Abscess Foot Pending 12/03/16 16:28 Fungal Smear Received Abscess Foot Pending 12/03/16 16:28 Fungal Culture Received Abscess Foot Pending Surgery path and micro not final Physical Exam Remarks right foot with bandage intact good CFT to digits 1 3 4 5, sensation decreased below ankle, good ankle ROM. Assessment & Plan A/P Right 2nd digit abscess, infection. SP Rt 2nd digit amputation. Bandage change tomorrow awaiting op cx and wound eval possible DC 2-3 days PO ABX vs IV. Heel WB only. Khadar Ashley DPM Dec 04, 2016 08:30
[2016-12-04] MEDS: DOCUSATE SODIUM 50 MG/SENNA 8.6 MG TAB PO SCH ×2 (09:00→20:28)
[2016-12-04] MEDS: FUROSEMIDE 20 MG TAB PO SCH ×2 (09:29→17:08)
[2016-12-04] MEDS: VALSARTAN 80 MG TAB PO SCH (09:29)
[2016-12-04] MEDS: ASPIRIN 81 MG CHEW TAB CHEW SCH (09:29)
[2016-12-04] MEDS: ATORVASTATIN 40 MG TAB PO SCH (09:29)
[2016-12-04] MEDS: METOPROLOL TARTRATE 25 MG TAB PO SCH ×2 (09:30→20:28)
--- NOTE | 2016-12-04 14:39 | HHI.PR ---
Subjective Remarks Follow-up osteomyelitis, diabetes. The patient states that he feels much better today. Had a lot of pain overnight, but pain control is better today. Denies chest pain, dyspnea. Objective Vitals Vital Signs Date Time Temp Pulse Resp B/P Pulse Ox O2 Delivery O2 Flow Rate FiO2 12/04/16 12:00 96.8 84 16 128/74 95 12/04/16 10:59 98 Nasal Cannula 3.00 12/04/16 08:00 95.5 59 17 137/71 96 12/04/16 04:19 Nasal Cannula 3.00 12/04/16 04:00 96.4 60 17 136/74 98 12/04/16 01:36 57 12/04/16 00:00 97.0 62 17 128/72 98 12/03/16 20:00 97.2 66 17 128/70 98 12/03/16 17:45 66 16 120/63 98 Nasal Cannula 3 12/03/16 17:30 95 16 117/63 97 Nasal Cannula 3 12/03/16 17:15 68 16 114/68 98 Nasal Cannula 3 12/03/16 17:00 73 16 116/62 96 Nasal Cannula 3 12/03/16 16:49 98.4 77 16 127/65 96 Nasal Cannula 3 I/O 12/03/16 12/03/16 12/03/16 12/04/16 12/04/16 12/04/16 06:59 14:59 22:59 06:59 14:59 22:59 Intake Total 600 ml 1097 ml 1020 ml Output Total 300 ml 700 ml Balance 600 ml 797 ml 320 ml Intake Oral 240 ml 240 ml IV Total 600 ml 157 ml 780 ml Other 700 ml Output Urine Total 300 ml 700 ml Estimated Blood Loss 0 ml Other 0 ml Result Diagram: 12/04/16 0549 12/04/16 0549 Imaging Last Impressions Foot X-Ray 12/03/16 0000 Signed Impressions: Service Date/Time: Saturday, December 03, 2016 17:07 - CONCLUSION: Amputation since the prior exam. Maciej Taveras MD Foot MRI 12/02/16 0000 Signed Impressions: Service Date/Time: Friday, December 02, 2016 19:56 - CONCLUSION: Abnormal marrow of the second proximal phalanx could represent osteomyelitis with possibly superimposed fracture and clinical correlation is needed. Maciej Taveras MD ADDENDUM: The patient has a history of a fracture of the second proximal phalanx involving the articular surface at the PIP joint. The findings of abnormal bone marrow edema, and enhancement of the marrow and soft tissues surrounding the second digit can be related to the actual fracture however in the upper upper clinical setting osteomyelitis can also have this appearance. There is a prominent amount of subcutaneous edema identified. No focal fluid collections are seen to suggest abscess at this time. Jared Tomlin MD Objective Remarks General: No acute distress. Ambulating in the room using a walker. Heart: Regular rate and rhythm. No murmur. Lungs: Clear to auscultation bilaterally. No wheezes, rales, or rhonchi. Breathing is nonlabored. Abdomen: Soft, nontender, nondistended. Extremities: Right foot heavily bandaged. Psych: Alert and oriented. Procedures 12/03/16 amputation, right second toe Urinary Catheter: No Vascular Central Line Catheter: No A/P Problem List: (1) Diabetes ICD Code: E11.9 Status: Chronic (2) Osteomyelitis of ankle or foot, acute ICD Code: M86.179 Status: Acute (3) SETH (acute kidney injury) ICD Code: N17.9 Status: Acute (4) HTN (hypertension) ICD Code: I10 Status: Acute Assessment and Plan 1. Cellulitis, osteomyelitis of the right foot: Appreciate podiatry recommendations. Status post amputation of the right second toe. Continue antibiotics. Await culture results. Nonweightbearing, right lower extremity. 2. Diabetes mellitus type 2: Monitor Accu-Cheks and cover with sliding scale insulin. Continue Levemir. 3. Acute kidney injury: Possible chronic kidney disease secondary to diabetic nephropathy. Continue IV fluids. 4. Hypertension: Continue valsartan, metoprolol, Lasix. 5. DVT prophylaxis: Heparin. Greyson Corey MD Dec 04, 2016 14:39
[2016-12-04] MEDS: NS + KCL 20 MEQ INJ 1,000 ML IV SCH (17:07)
[2016-12-04] MEDS: INSULIN DETEMIR 100 UNITS/ML VIAL SQ SCH (20:26)
[2016-12-05] VITALS (9 sets, daily range): BP systolic 128–172; BP diastolic 61–85; PULSE 60–75; RESP 16–18; TEMP 96.4–99; O2SAT 91–98
[2016-12-05] MEDS: PIPERACIL-TAZO 3.375 GM PREMIX 50 ML IV SCH ×3 (01:27→16:00)
[2016-12-05] MEDS ORDERED: PHARMACY ORDERED LAB ONE (01:45)
[2016-12-05] MEDS: ACETAMINOPHEN/HYDROcodone 325 MG/7.5 MG TAB PO PRN ×3 (02:35→15:04)
[2016-12-05] MEDS: VANCOMYCIN 1,500 MG/NS 500 ML IV SCH ×2 (02:36)
[2016-12-05] MEDS: HEPARIN SODIUM - SQ 10,000 UNITS/ML VIAL SQ SCH ×2 (05:51→15:04)
[2016-12-05] MEDS: INSULIN ASPART SUPPLEMENTAL SCALE SQ SCH ×4 (05:59→21:00)
[2016-12-05] MEDS: METOPROLOL TARTRATE 25 MG TAB PO SCH ×2 (08:15→21:54)
[2016-12-05] MEDS: FUROSEMIDE 20 MG TAB PO SCH ×2 (08:16→16:11)
[2016-12-05] MEDS: DOCUSATE SODIUM 50 MG/SENNA 8.6 MG TAB PO SCH ×2 (08:16→21:00)
[2016-12-05] MEDS: ASPIRIN 81 MG CHEW TAB CHEW SCH (08:16)
[2016-12-05] MEDS: VALSARTAN 80 MG TAB PO SCH (08:16)
[2016-12-05] MEDS: ATORVASTATIN 40 MG TAB PO SCH (08:17)
--- NOTE | 2016-12-05 10:23 | MP ---
cc: ALEXANDRAMARCELAMahiSTEVEFracnhesca TORRES DATE OF SURGERY: 12/03/2016 INDICATION This patient presented to the [facility] where he was noted to have some changes to the cortical bone of his proximal phalanx of the second toe. Three months ago he had an injury to his right ankle where he twisted his ankle. He said he may or may not have had an injury to his right foot as well at that time with the fracture of the toe but he did not feel it secondary to neuropathy. He is also diabetic. He also had a wound of unknown age to the plantar aspect of the second toe area which was also draining pus at the time of his arrival to the emergency department. He did not know if these were correlated with his injury versus this wound and infection that has now started with redness traveling up the foot into the ankle area with swelling to the foot as well. He is starting to feel a lot of pain in the toe in that is what brought him into the emergency department. I discussed with him after MRI results did confirm that there is marrow edema present in the second toe that is consistent with osteomyelitis based on clinical correlation as well as a probe to bone test with the ulceration to the plantar aspect and purulent drainage present. I discussed with him that I felt like the second toe was infected based on this evidence as well as his body's response to this infection that it was acute. I discussed the options with him and discussed removal of the second toe and that he would likely have packing in the bottom of the foot to the plantar incision area after surgery that would need to be changed. He consented to amputation of right second toe and incision and drainage of right foot. DETAILS OF PROCEDURE The patient was seen in pre-op holding by myself, nursing staff and Anesthesia where the correct patient, side and site were all confirmed to be correct in the right foot. He was then taken to the surgical suite, placed in supine position where the right foot was prepped and draped in normal sterile fashion followed by timeout as per hospital protocol. The right plantar base of the toe wound area was approximately 0.3 cm in diameter and did probe to bone with purulent drainage. That purulence was cultured. The second digit had erythema and edema with sausaging present and erythema to the dorsal forefoot as well. The digit was amputated using two semi-elliptical incisions medially and laterally that did encompass the plantar wound, plantar tip of toe and disarticulation of the second metatarsophalangeal joint which was sent to pathology as a specimen. A small amount of plantar necrotic fat pad was noted within the wound with minimal purulence. The area was copiously irrigated with three liters of normal saline followed by partial closure dorsally and centrally with 2-0 nylon suture and the plantar incision was packed open with half-inch Iodoform gauze followed by dressing consisting of Xeroform, 4x4s, cast padding, ABD pad and Terence bandage to the right foot. Daily packing changes are ordered per nursing and upon discharge and he will follow-up in the clinic in one week for dressing change and wound analysis. I did take all infected bone and tissue removed. The second metatarsal head appeared to be healthy, white, shiny and viable. Recommend 2 weeks of oral antibiotics per culture results upon discharge, daily packing changes per nursing and non-weightbearing to the right foot in a surgical shoe per PT recommendations. SHORT OPERATIVE NOTE SURGEON Iasel Whitt. 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 PREOPERATIVE DIAGNOSIS Osteomyelitis, right second toe. POSTOPERATIVE DIAGNOSIS Osteomyelitis, right second toe. PROCEDURE Amputation right second toe. PATHOLOGY 1. Second toe to pathology. 2. Culture right foot. ESTIMATED BLOOD LOSS 10 mL. COMPLICATIONS None. ANESTHESIA General endotracheal. TOURNIQUET TIME Right ankle at 250 mmHg x7 minutes. CONDITION Stable to PACU. DISPOSITION Non-weightbearing right foot in surgical shoe with walker versus crutches. Daily packing changes. Await cultures for antibiotic recommendations and follow-up in clinic in one week for wound check. Isael STREETER/JOSE /5:32 PM /10:12 AM
[2016-12-05] MEDS: NS + KCL 20 MEQ INJ 1,000 ML IV SCH (15:27)
--- NOTE | 2016-12-05 15:50 | HHI.PR ---
Subjective Remarks Follow-up osteomyelitis, diabetes mellitus. Patient states that the pain control is improving. Dressing was changed this afternoon. No other complaints at this time. Denies chest pain, dyspnea, nausea, vomiting, diarrhea, constipation. Objective Vitals Vital Signs Date Time Temp Pulse Resp B/P Pulse Ox O2 Delivery O2 Flow Rate FiO2 12/05/16 12:30 97 12/05/16 12:00 96.4 60 17 145/63 98 12/05/16 08:00 60 12/05/16 08:00 96.4 60 17 139/71 95 12/05/16 04:00 96.8 60 16 136/72 96 12/05/16 00:00 98.5 74 16 128/61 91 12/04/16 21:00 72 12/04/16 20:00 98.1 74 16 140/67 94 12/04/16 18:06 97 Nasal Cannula 3.00 12/04/16 16:00 96.0 79 18 141/67 97 I/O 12/04/16 12/04/16 12/04/16 12/05/16 12/05/16 12/05/16 07:00 15:00 23:00 07:00 15:00 23:00 Intake Total 1020 ml 575 ml 905 ml 347 ml Output Total 700 ml 375 ml 1200 ml Balance 320 ml 200 ml -1200 ml 905 ml 347 ml Intake Oral 240 ml 575 ml IV Total 780 ml 905 ml 347 ml Output Urine Total 700 ml 375 ml 1200 ml # Voids 2 # Bowel Movements 1 4 Result Diagram: 12/04/16 0549 12/04/16 0549 Imaging Last Impressions Foot X-Ray 12/03/16 0000 Signed Impressions: Service Date/Time: Saturday, December 03, 2016 17:07 - CONCLUSION: Amputation since the prior exam. Maciej Taveras MD Foot MRI 12/02/16 0000 Signed Impressions: Service Date/Time: Friday, December 02, 2016 19:56 - CONCLUSION: Abnormal marrow of the second proximal phalanx could represent osteomyelitis with possibly superimposed fracture and clinical correlation is needed. Maciej Taveras MD ADDENDUM: The patient has a history of a fracture of the second proximal phalanx involving the articular surface at the PIP joint. The findings of abnormal bone marrow edema, and enhancement of the marrow and soft tissues surrounding the second digit can be related to the actual fracture however in the upper upper clinical setting osteomyelitis can also have this appearance. There is a prominent amount of subcutaneous edema identified. No focal fluid collections are seen to suggest abscess at this time. Jared Tomlin MD Objective Remarks General: No acute distress. Heart: Regular rate and rhythm. No murmur. Lungs: Clear to auscultation bilaterally. No wheezes, rales, or rhonchi. Breathing is nonlabored. Abdomen: Soft, nontender, nondistended. Extremities: Right foot wound bandaged. Psych: Alert and oriented. Procedures 12/03/16 amputation, right second toe Urinary Catheter: No Vascular Central Line Catheter: No A/P Problem List: (1) Diabetes ICD Code: E11.9 Status: Chronic (2) Osteomyelitis of ankle or foot, acute ICD Code: M86.179 Status: Acute (3) SETH (acute kidney injury) ICD Code: N17.9 Status: Acute (4) HTN (hypertension) ICD Code: I10 Status: Acute Assessment and Plan 1. Cellulitis, osteomyelitis of the right foot: Appreciate podiatry recommendations. Status post amputation of the right second toe. Continue antibiotics. Await culture results. Preliminary culture report shows staph aureus. Sensitivities are pending. Nonweightbearing, right lower extremity. 2. Diabetes mellitus type 2: Monitor Accu-Cheks and cover with sliding scale insulin. Continue Levemir. 3. Acute kidney injury: Possible chronic kidney disease secondary to diabetic nephropathy. Continue IV fluids. 4. Hypertension: Continue valsartan, metoprolol, Lasix. 5. DVT prophylaxis: Heparin. Discharge Planning Possible discharge home tomorrow pending culture results. Greyson Corey MD Dec 05, 2016 15:50
[2016-12-05] MEDS: INSULIN DETEMIR 100 UNITS/ML VIAL SQ SCH (21:00)
[2016-12-05] MEDS: VANCOMYCIN INJ 2,000 MG in SODIUM CHLORID 0.9% 500 ML INJ 500 ML IV SCH (21:54)
[2016-12-06] VITALS (8 sets, daily range): BP systolic 126–149; BP diastolic 60–72; PULSE 61–98; RESP 16–20; TEMP 96.9–99.5; O2SAT 94–99
[2016-12-06] MEDS: PIPERACIL-TAZO 3.375 GM PREMIX 50 ML IV SCH ×3 (02:58→16:37)
[2016-12-06 05:22] LABS: BASOPHIL % 0.5 % (0.0-2.0); EOSINOPHIL # 0.4 TH/MM3 (0-0.4); EOSINOPHIL % 4.4 % (0.0-4.0); HEMATOCRIT 36.5 % (39.0-51.0); HEMO FLAGS DIFF FINAL; LYMPH % 13.3 % (9.0-44.0); LYMPHOCYTE # 1.1 TH/MM3 (1.0-4.8); MEAN CELL VOLUME 86.1 FL (80.0-100.0); MEAN CORPUSCULAR HEMOGLOBIN 29.9 PG (27.0-34.0); MEAN CORPUSCULAR HGB CONC 34.7 % (32.0-36.0); MONO % 7.5 % (0.0-8.0); NEUT % 74.3 % (16.0-70.0); PLATELET COUNT 292 TH/MM3 (150-450); RED BLOOD COUNT 4.24 MIL/MM3 (4.50-5.90); RED CELL DISTRIBUTION WIDTH 13.4 % (11.6-17.2); WHITE BLOOD COUNT 8.1 TH/MM3 (4.0-11.0)
[2016-12-06 05:43] LABS: BICARBONATE 25.7 MEQ/L (21.0-32.0); POTASSIUM 3.6 MEQ/L (3.5-5.1)
[2016-12-06] MEDS: INSULIN ASPART SUPPLEMENTAL SCALE SQ SCH ×4 (05:59→22:10)
[2016-12-06] MEDS: HEPARIN SODIUM - SQ 10,000 UNITS/ML VIAL SQ SCH ×2 (05:59→16:37)
--- NOTE | 2016-12-06 08:12 | PD.POD ---
Subjective Pain score: 2 Remarks pain improved Past Med/Surg/Social History Social History Smoking Status: Never Smoker Objective Vital Signs Vital Signs Date Time Temp Pulse Resp B/P Pulse Ox O2 Delivery O2 Flow Rate FiO2 12/06/16 04:00 98.0 66 16 140/67 94 12/06/16 00:00 97.1 69 16 126/60 98 12/05/16 21:50 96 21 12/05/16 21:00 75 12/05/16 20:00 99.0 70 16 145/70 96 12/05/16 16:00 98.5 60 18 172/85 96 12/05/16 12:30 97 12/05/16 12:00 96.4 60 17 145/63 98 Coded Allergies: No Known Allergies (Verified , 12/02/16) Medications and IVs Administered Medications Medications (Trade) Dose Ordered Sig/Librado Route PRN Reason Start Time Stop Time Status Last Admin Dose Admin Heparin Sodium (Porcine) (Heparin Inj) 5,000 units Q12H SQ 12/02/16 17:00 12/06/16 05:59 Acetaminophen/ Hydrocodone Bitart ([place] 7.5-325 Mg) 1 tab Q4H PRN PO PAIN SCALE 6 TO 10 12/02/16 12:15 12/05/16 15:04 Senna/Docusate Sodium 1 tab 1 tab BID PO 12/02/16 21:00 12/05/16 08:16 Potassium Chloride/Sodium Chloride (NS + KCl 20 Meq Inj) 1,000 ml @ 42 mls/hr [id number] IV 12/02/16 16:00 12/05/16 15:27 Aspirin (Aspirin Chew) 81 mg DAILY CHEW 12/03/16 09:00 12/05/16 08:16 Furosemide (Lasix) 20 mg BID@09,18 PO 12/02/16 18:00 12/05/16 16:11 Insulin Detemir (Levemir Inj) 90 units HS SQ 12/02/16 21:00 12/05/16 21:00 Metoprolol Tartrate (Lopressor) 25 mg BID PO 12/02/16 21:00 12/05/16 21:54 Valsartan 80 mg 80 mg DAILY PO 12/03/16 09:00 12/05/16 08:16 Piperacillin Sod/ Tazobactam Sod (Zosyn 3.375 Gm Premix) 50 ml @ 100 mls/hr Q8H IV 12/02/16 18:00 12/06/16 02:58 Atorvastatin Calcium 40 mg 40 mg DAILY PO 12/03/16 09:00 12/05/16 08:17 Vancomycin HCl/ Sodium Chloride (Vancomycin Inj/ NS 500 ml Inj) 520 ml @ 257.5 mls/ hr Q18H IV 12/05/16 20:00 12/05/16 21:54 Other Results Laboratory Tests Test 12/06/16 04:30 White Blood Count 8.1 TH/MM3 Red Blood Count 4.24 MIL/MM3 Hemoglobin 12.7 GM/DL Hematocrit 36.5 % Mean Corpuscular Volume 86.1 FL Mean Corpuscular Hemoglobin 29.9 PG Mean Corpuscular Hemoglobin 34.7 % Concent Red Cell Distribution Width 13.4 % Platelet Count 292 TH/MM3 Mean Platelet Volume 8.1 FL Neutrophils (%) (Auto) 74.3 % Lymphocytes (%) (Auto) 13.3 % Monocytes (%) (Auto) 7.5 % Eosinophils (%) (Auto) 4.4 % Basophils (%) (Auto) 0.5 % Neutrophils # (Auto) 6.0 TH/MM3 Lymphocytes # (Auto) 1.1 TH/MM3 Monocytes # (Auto) 0.6 TH/MM3 Eosinophils # (Auto) 0.4 TH/MM3 Basophils # (Auto) 0.0 TH/MM3 CBC Comment DIFF FINAL Differential Comment Laboratory Tests Test 12/06/16 04:30 Sodium Level 137 MEQ/L Potassium Level 3.6 MEQ/L Chloride Level 104 MEQ/L Carbon Dioxide Level 25.7 MEQ/L Anion Gap 7 MEQ/L Blood Urea Nitrogen 13 MG/DL Creatinine 1.16 MG/DL Estimat Glomerular Filtration 64 ML/MIN Rate Random Glucose 128 MG/DL Calcium Level 9.0 MG/DL Microbiology Date/Time Procedure Status Source Growth 12/03/16 16:28 Gram Stain - Final Resulted Abscess Foot 12/03/16 16:28 Wound Culture - Preliminary Resulted Staphylococcus Aureus 12/03/16 16:28 Acid Fast Stain - Final Resulted Abscess Foot NO ACID FAST BACILLI SEEN 12/03/16 16:28 Mycobacterial Culture Resulted Abscess Foot Pending 12/03/16 16:28 Fungal Smear - Final Resulted Abscess Foot NO FUNGAL ELEMENTS SEEN. 12/03/16 16:28 Fungal Culture Resulted Abscess Foot Pending Physical Exam Remarks right foot 2nd digit amputation site with moderate redness incision coapted with minimal serosanguineous drainage good CFT to digits 1 3 4 5, sensation decreased below ankle, good ankle ROM. Assessment & Plan A/P Right 2nd digit abscess, infection. SP Rt 2nd digit amputation. Bandage changed tomorrow awaiting final op cx- Staph, prefer one more day of IV ABX, and if Staph sens to PO meds Dc in AM tomorrow. ordered for woundcare. Khadar Ashley DPM Dec 06, 2016 08:12
[2016-12-06] MEDS: VALSARTAN 80 MG TAB PO SCH (08:32)
[2016-12-06] MEDS: ATORVASTATIN 40 MG TAB PO SCH (08:32)
[2016-12-06] MEDS: FUROSEMIDE 20 MG TAB PO SCH ×2 (08:32→16:37)
[2016-12-06] MEDS: METOPROLOL TARTRATE 25 MG TAB PO SCH ×2 (08:33→20:08)
[2016-12-06] MEDS: ASPIRIN 81 MG CHEW TAB CHEW SCH (08:33)
[2016-12-06] MEDS: DOCUSATE SODIUM 50 MG/SENNA 8.6 MG TAB PO SCH ×2 (08:33→20:08)
[2016-12-06] MEDS: NS + KCL 20 MEQ INJ 1,000 ML IV SCH (08:36)
[2016-12-06] MEDS ORDERED: WALKER WHEELS/F1 MIS (09:16)
--- NOTE | 2016-12-06 09:24 | HHI.FF ---
Face to Face Verification Diagnosis: (1) Osteomyelitis of ankle or foot, acute (2) Cellulitis and abscess of foot excluding toe (3) Status post amputation of toe of right foot Home Health Nursing Order: Wound care and dressing changes Nursing assessment with vital signs Instructions: Betadine swab to incision, 4x4 ann wrap; change every other day I have seen patient Jung Ruiz on 12/06/16. My clinical findings support the need for the requested home health care services because: High risk of falls I certify that my clinical findings support that this patient is homebound because: Unsteady gait/balance Greyson Corey MD Dec 06, 2016 09:24
--- NOTE | 2016-12-06 11:35 | HHI.PR ---
Subjective Remarks Follow-up osteomyelitis. Patient reports that his pain is well controlled. No other complaints at this time. Objective Vitals Vital Signs Date Time Temp Pulse Resp B/P Pulse Ox O2 Delivery O2 Flow Rate FiO2 12/06/16 10:38 99 21 12/06/16 08:00 96.9 68 19 149/66 97 12/06/16 08:00 64 12/06/16 04:00 98.0 66 16 140/67 94 12/06/16 00:00 97.1 69 16 126/60 98 12/05/16 21:50 96 21 12/05/16 21:00 75 12/05/16 20:00 99.0 70 16 145/70 96 12/05/16 16:00 98.5 60 18 172/85 96 12/05/16 12:30 97 12/05/16 12:00 96.4 60 17 145/63 98 I/O 12/05/16 12/05/16 12/05/16 12/06/16 12/06/16 12/06/16 07:00 15:00 23:00 07:00 15:00 23:00 Intake Total 905 ml 797 ml 120 ml Output Total 350 ml 2850 ml Balance 905 ml 447 ml -2850 ml 120 ml Intake Oral 450 ml 120 ml IV Total 905 ml 347 ml Output Urine Total 350 ml 2850 ml # Voids 2 6 # Bowel Movements 1 1 Result Diagram: 12/06/16 0430 12/06/16 0430 Imaging Last Impressions Foot X-Ray 12/03/16 0000 Signed Impressions: Service Date/Time: Saturday, December 03, 2016 17:07 - CONCLUSION: Amputation since the prior exam. Maciej Taveras MD Foot MRI 12/02/16 0000 Signed Impressions: Service Date/Time: Friday, December 02, 2016 19:56 - CONCLUSION: Abnormal marrow of the second proximal phalanx could represent osteomyelitis with possibly superimposed fracture and clinical correlation is needed. Maciej Taveras MD ADDENDUM: The patient has a history of a fracture of the second proximal phalanx involving the articular surface at the PIP joint. The findings of abnormal bone marrow edema, and enhancement of the marrow and soft tissues surrounding the second digit can be related to the actual fracture however in the upper upper clinical setting osteomyelitis can also have this appearance. There is a prominent amount of subcutaneous edema identified. No focal fluid collections are seen to suggest abscess at this time. Jared Tomlin MD Objective Remarks General: No acute distress. Heart: Regular rate and rhythm. No murmur. Lungs: Clear to auscultation bilaterally. No wheezes, rales, or rhonchi. Breathing is nonlabored. Abdomen: Soft, nontender, nondistended. Extremities: Right foot wound bandaged. Psych: Alert and oriented. Procedures 12/03/16 amputation, right second toe Urinary Catheter: No Vascular Central Line Catheter: No A/P Problem List: (1) Osteomyelitis of ankle or foot, acute ICD Code: M86.179 Status: Acute (2) Diabetes ICD Code: E11.9 Status: Chronic (3) SETH (acute kidney injury) ICD Code: N17.9 Status: Acute (4) HTN (hypertension) ICD Code: I10 Status: Chronic Assessment and Plan 1. Cellulitis, osteomyelitis of the right foot: Appreciate podiatry recommendations. Status post amputation of the right second toe. Culture growing MSSA. Nonweightbearing, right lower extremity. Per podiatry, dressing change tomorrow, then discharge home with oral antibiotics. 2. Diabetes mellitus type 2: Monitor Accu-Cheks and cover with sliding scale insulin. Continue Levemir. 3. Acute kidney injury: Possible chronic kidney disease secondary to diabetic nephropathy. 4. Hypertension: Continue valsartan, metoprolol, Lasix. 5. DVT prophylaxis: Heparin. Discharge Planning Plan for discharge home tomorrow with home health care for dressing changes. Greyson Corey MD Dec 06, 2016 11:35
[2016-12-06] MEDS: VANCOMYCIN INJ 2,000 MG in SODIUM CHLORID 0.9% 500 ML INJ 500 ML IV SCH (14:16)
[2016-12-06] MEDS: INSULIN DETEMIR 100 UNITS/ML VIAL SQ SCH (22:09)
[2016-12-07] VITALS: BP 128/64; PULSE 64; RESP 17; TEMP 97.2; O2SAT 95
[2016-12-07] MEDS: HEPARIN SODIUM - SQ 10,000 UNITS/ML VIAL SQ SCH (03:51)
[2016-12-07] MEDS: PIPERACIL-TAZO 3.375 GM PREMIX 50 ML IV SCH ×2 (03:51→11:36)
[2016-12-07 04:00] VITALS: BP 127/68; PULSE 78; RESP 17; TEMP 98.2; O2SAT 95
[2016-12-07] MEDS: INSULIN ASPART SUPPLEMENTAL SCALE SQ SCH ×2 (05:21→11:39)
[2016-12-07 08:00] VITALS: BP 144/86; PULSE 97; RESP 20; TEMP 96.9; O2SAT 99
[2016-12-07] MEDS: DOCUSATE SODIUM 50 MG/SENNA 8.6 MG TAB PO SCH (08:21)
[2016-12-07] MEDS: VALSARTAN 80 MG TAB PO SCH (08:21)
[2016-12-07] MEDS: METOPROLOL TARTRATE 25 MG TAB PO SCH (08:21)
[2016-12-07] MEDS: ASPIRIN 81 MG CHEW TAB CHEW SCH (08:21)
[2016-12-07] MEDS: VANCOMYCIN INJ 2,000 MG in SODIUM CHLORID 0.9% 500 ML INJ 500 ML IV SCH (08:21)
[2016-12-07] MEDS: FUROSEMIDE 20 MG TAB PO SCH (08:21)
[2016-12-07] MEDS: ATORVASTATIN 40 MG TAB PO SCH (08:22)
[2016-12-07 12:00] VITALS: BP 145/56; PULSE 60; RESP 19; TEMP 97; O2SAT 96
[2016-12-07] MEDS ORDERED: SULF1TAB23 PO (14:12)
--- NOTE | 2016-12-07 14:13 | HHI.DCPOC ---
Discharge Care Plan Diagnosis: (1) Diabetes (2) SETH (acute kidney injury) (3) Cellulitis and abscess of foot excluding toe (4) Osteomyelitis of ankle or foot, acute (5) HTN (hypertension) Goals to Promote Your Health * To prevent worsening of your condition and complications * To maintain your health at the optimal level Directions to Meet Your Goals Take your medications as prescribed Follow your dietary instruction Follow activity as directed Keep your appointments as scheduled Take your immunizations and boosters as scheduled If your symptoms worsen call your PCP, if no PCP go to Urgent Care Center or Emergency Room Smoking is Dangerous to Your Health. Avoid second hand smoke Call the 24-hour hour crisis hotline for domestic abuse at Greyson Corey MD Dec 07, 2016 14:13
--- NOTE | 2016-12-07 14:25 | HHI.DS ---
Discharge Summary Admission Date Dec 02, 2016 at 15:24 Discharge Date: Dec 07, 2016 Admitting Diagnosis Osteomyelitis (1) Osteomyelitis of ankle or foot, acute ICD Code: M86.179 (2) Diabetes ICD Code: E11.9 (3) SETH (acute kidney injury) ICD Code: N17.9 (4) HTN (hypertension) ICD Code: I10 Procedures 12/03/16 amputation, right second toe Brief History - From Admission Patient is a 61-year-old male with primary medical history of diabetes, hypertension, GERD, HLD who came in to the emergency department in [place] for evaluation of right foot pain and swelling. He was subsequently transferred to the [facility]. Patient states that 3 months ago he twisted his ankle but has never seen anybody to evaluate because he was able to walk, move around and never really had problems until about a week ago when he started noticing the right foot pain, swelling, and redness of his foot. 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 But because of increasing pain he was unable to wait for the appointment that he went to the ED for evaluation. He states he noticed his right foot has been red and swollen and it goes all the way to his right leg mid calf portion. Also reported to have some bleeding today after he took off his shoes in the ED. states right pain has subsided rated 6/10, dull aching, nonradiating, relieved by pain medication, not aggravated by anything. Reports caffeine headache today, light cough but does not expectorate anything. Occasional diarrhea due to metformin use. Otherwise, denies SOB/ dyspnea. Denies chest pain, palpitations, dizziness. Denies fevers , chills, n/v. Denies dysuria. Foot x-ray showed significant soft tissue swelling is noted of the second toe. There is a focal deformity involving the proximal phalanx at the interphalangeal joint. There is a depression of the articulating surface and focal cortical disruption. Chest x-ray showed no acute disease CBC/BMP: 12/06/16 0430 12/06/16 0430 Significant Findings Laboratory Tests Test 12/06/16 04:30 Red Blood Count 4.24 MIL/MM3 (4.50-5.90) Hemoglobin 12.7 GM/DL (13.0-17.0) Hematocrit 36.5 % (39.0-51.0) Neutrophils (%) (Auto) 74.3 % (16.0-70.0) Eosinophils (%) (Auto) 4.4 % (0.0-4.0) Estimat Glomerular Filtration 64 ML/MIN (>89) Rate Random Glucose 128 MG/DL (74-106) Imaging Last Impressions Foot X-Ray 12/03/16 0000 Signed Impressions: Service Date/Time: Saturday, December 03, 2016 17:07 - CONCLUSION: Amputation since the prior exam. Maciej Taveras MD Foot MRI 12/02/16 0000 Signed Impressions: Service Date/Time: Friday, December 02, 2016 19:56 - CONCLUSION: Abnormal marrow of the second proximal phalanx could represent osteomyelitis with possibly superimposed fracture and clinical correlation is needed. Maciej Taveras MD ADDENDUM: The patient has a history of a fracture of the second proximal phalanx involving the articular surface at the PIP joint. The findings of abnormal bone marrow edema, and enhancement of the marrow and soft tissues surrounding the second digit can be related to the actual fracture however in the upper upper clinical setting osteomyelitis can also have this appearance. There is a prominent amount of subcutaneous edema identified. No focal fluid collections are seen to suggest abscess at this time. Jared Tomlin MD PE at Discharge General: No acute distress. Heart: Regular rate and rhythm. No murmur. Lungs: Clear to auscultation bilaterally. No wheezes, rales, or rhonchi. Breathing is nonlabored. Abdomen: Soft, nontender, nondistended. Extremities: Right foot wound bandaged. Psych: Alert and oriented. Pt update on day of discharge Patient has no complaints at this time. Pain is well controlled. He wants to go home. Hospital Course The patient was admitted for evaluation and management of apparent osteomyelitis of the right foot. Podiatry was consulted. The patient was started on IV antibiotics. Podiatry performed amputation of the right second toe. Culture grew MSSA. The patient was cleared for discharge by podiatry. He was switched to oral antibiotics and felt to be stable for discharge home. Home health arrangements were made by case management. Pt Condition on Discharge: Stable Discharge Disposition: Disch w/ Home Health Serv Discharge Time: > 30 minutes Discharge Instructions DIET: Follow Instructions for: Diabetic Diet Activities you can perform: Non Weight Bearing Other Activity Instructions: Light heel touch only, RLE Follow up Referrals: PCP Follow-up - 2 Weeks Podiatry - 1 Week with Isael Whitt DPM New Medications: Sulfamethoxazole-Trimethoprim (Sulfamethoxazole-Trimethoprim) 800-160 Mg Tab 1 TAB PO BID Infection #14 Ref 0 TAB Walker with Front Wheels (Walker with Front Wheels) 1 Mis Mis 1 EA .ROUTE DIRECTED #1 Ref 0 EA Continued Medications: Aspirin (Aspirin) 81 Mg Chew 81 MG CHEW DAILY Ref 0 TAB Furosemide (Furosemide) 20 Mg Tab 20 MG PO BID #60 Ref 0 TAB Insulin Aspart Inj (Novolog Inj) 1,000 Unit/10 Ml Vial 18 UNITS SQ ACHS Max dose at bedtime:( )units; sugars less than 70,(0) units; sugars 150-199,(5) units; sugars 200-249,(10) units; sugars 250-299,(15) units; sugars 300-349,(20)units; sugars greater than 349,(25)units Blood Sugar Management #10 Ref 0 ML Insulin Glargine Inj (Lantus Inj) 1,000 Unit/10 Ml Vial 90 UNITS SQ HS Blood Sugar Management Ref 0 VIAL Metformin (Metformin) 500 Mg Tab 500 MG PO BIDPC With meals Blood Sugar Management #60 Ref 0 TAB Metoprolol Tartrate (Metoprolol Tartrate) 25 Mg Tab 25 MG PO BID #60 Ref 0 TAB Simvastatin (Simvastatin) 80 Mg Tab 80 MG PO DAILY Cholesterol Management #30 Ref 0 TAB Valsartan (Valsartan) 80 Mg Tab 80 MG PO DAILY #30 Ref 0 TAB Greyson Corey MD Dec 07, 2016 14:25
[2016-12-08] MEDS ORDERED: PHARMACY ORDERED LAB ONE (01:45)
== END 2016-12-07 16:24 | disposition home health service (06) | DRG 617 ==
LOC: NEDDLT 11:10 → NEDA 15:24 → NEPHCDU 15:50 → N07B 12-03 16:41 → N07A 12-03 18:00
PROVIDERS: ADMIT Family Medicine; ATTEND Family Medicine
PROC: 0Y6R0Z0 Detachment at Right 2nd Toe, Complete, Open Approach (ICD-10-PCS; principal; 2016-12-03 15:56)
PROC: 0Y9M0ZX Drainage of Right Foot, Open Approach, Diagnostic (ICD-10-PCS; 2016-12-03 15:56)
DX: E11.69 Type 2 diabetes mellitus with other specified complication (principal); M86.171 Other acute osteomyelitis, right ankle and foot; N17.9 Acute kidney failure, unspecified; L97.419 Non-pressure chronic ulcer of right heel and midfoot with unspecified severity; L02.611 Cutaneous abscess of right foot; L03.115 Cellulitis of right lower limb; E11.621 Type 2 diabetes mellitus with foot ulcer; I10 Essential (primary) hypertension; K21.9 Gastro-esophageal reflux disease without esophagitis; I25.10 Atherosclerotic heart disease of native coronary artery without angina pectoris; E11.42 Type 2 diabetes mellitus with diabetic polyneuropathy; B95.61 Methicillin susceptible Staphylococcus aureus infection as the cause of diseases classified elsewhere; E78.5 Hyperlipidemia, unspecified; Z79.84 Long term (current) use of oral hypoglycemic drugs; Z95.1 Presence of aortocoronary bypass graft; Z95.5 Presence of coronary angioplasty implant and graft; Z79.4 Long term (current) use of insulin; Z79.82 Long term (current) use of aspirin
CPT/HCPCS: 71020; 73630; 73720; 80048; 80053; 80202; 82948; 83605; 85025; 85610; 85730; 86403; 87015; 87040; 87070; 87102; 87116; 87147; 87186; 87205; 87206; 88305; 88311; 93005; A9579; J1644; J1815; J2270; J2405; J2543; J3010; J3370; J3480; J7030; J7040; J7050; L3260

== ENCOUNTER 2018-02-21 11:31 | Inpatient (IN) ==
--- NOTE | 2018-02-21 11:58 | ED ---
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 Goff on 4 admission due to a chronic right foot infection. Patient stated that he was following up today and when the physician saw him recommended to come to the ER. He presented with a prescription for imaging that includes MRI of the right foot with and without contrast, ESR, CRP, and basic labs Related Data Allergies Allergy/AdvReac Type Severity Reaction Status Date / Time No Known Allergies Allergy Verified 02/21/18 11:40 Review of Systems ROS: all other systems reviewed are negative PMFSH History History Provided By: Patient Medical History Medical History Diabetes (Acute) HTN (hypertension) (Acute) High cholesterol (Acute) Surgical History Surgical History Hx of CABG (Acute) Social History Social History Smoking Status: Never smoker How Often Do You Have a Drink Containing Alcohol: Never Exam Narrative Exam Narrative: GENERAL: Alert and oriented in no distress SKIN: Focused skin assessment warm/dry. Diabetic pressure ulcer on right foot dorsum at the base of the great toe. HEAD: Atraumatic. Normocephalic. EYES: Pupils equal and round. No scleral icterus. No injection or drainage. ENT: No nasal bleeding or discharge. Mucous membranes pink and moist. NECK: Trachea midline. No JVD. CARDIOVASCULAR: Regular rate and rhythm. No murmur appreciated. RESPIRATORY: No accessory muscle use. Clear to auscultation. Breath sounds equal bilaterally. GASTROINTESTINAL: Abdomen soft, non-tender, nondistended. Hepatic and splenic margins not palpable. MUSCULOSKELETAL: No obvious deformities. No clubbing. No cyanosis. No edema. NEUROLOGICAL: Awake and alert. No obvious cranial nerve deficits. Motor grossly within normal limits. Normal speech. PSYCHIATRIC: Appropriate mood and affect; insight and judgment normal. Extrem Other: Right foot with diabetic chronic ulceration on the base of the great toe dorsum. Soft tissue swelling with 1+ pitting edema involving the foot. Erythema blanchable with lymphangiitis tracking to distal anterior leg. Capillary refill intact Course Hospital Course: And ceftriaxone for presumptive osteomyelitis of the right foot. Reevaluation(s) Reevaluation #1: Resting comfortably no distress Time: 13:15 Reevaluation #2: Patient was notified on findings and he is aware that he will be admitted for IV antibiotics and podiatry consultation Time: 15:47 Initial Documented Vital Signs Temperature 99.2 F 02/21/18 11:34 Pulse Rate 94 H 02/21/18 11:34 Respiratory Rate 18 02/21/18 11:34 Blood Pressure 172/78 H 02/21/18 11:34 Pulse Oximetry 97 02/21/18 11:34 Last Documented Vital Signs Temperature 99.2 F 02/21/18 11:34 Pulse Rate 94 H 02/21/18 11:34 Respiratory Rate 18 02/21/18 11:34 Blood Pressure 172/78 H 02/21/18 11:34 Pulse Oximetry 97 02/21/18 11:34 Medical Decision Making MDM Narrative Medical decision making narrative: Broad-spectrum antibiotics for possible osteomyelitis given the point of care. MRI was negative. Markedly elevated inflammatory markers with leukocytosis. Afebrile stable vitals. Medical Screen Exam Complete: Yes Emergency Medical Condition: Yes Medical Records Medical records reviewed: Yes I reviewed the patient's medical records. Lab Data Lab results reviewed: Yes I reviewed the patient's lab results. Result diagrams: 02/21/18 12:15 02/21/18 12:15 Lab Results 02/21/18 02/21/18 02/21/18 Range/Units 12:15 12:15 12:15 WBC 14.2 H (4.0-11.0) th/mm3 RBC 4.14 L (4.50-5.90) mil/mm3 Hgb 12.3 L (13.0-17.0) gm/dL Hct 36.5 L (39.0-51.0) % MCV 88.2 (80.0-100.0) fL MCH 29.7 (27.0-34.0) pg MCHC 33.7 (32.0-36.0) % RDW 13.9 (11.6-17.2) % Plt Count 301 (150-450) th/mm3 MPV 8.0 (7.0-11.0) fL Neut % (Auto) 84.5 H (16.0-70.0) % Lymph % (Auto) 7.2 L (9.0-44.0) % Kane % (Auto) 6.2 (0.0-8.0) % Eos % (Auto) 1.3 (0.0-4.0) % Baso % (Auto) 0.8 (0.0-2.0) % Neut # (Auto) 12.0 H (1.8-7.7) th/mm3 Lymph # (Auto) 1.0 (1.0-4.8) th/mm3 Kane # (Auto) 0.9 (0.0-0.9) th/mm3 Eos # (Auto) 0.2 (0.0-0.4) th/mm3 Baso # (Auto) 0.1 (0.0-0.2) th/mm3 WBC Differential . Differential Comment Auto diff final ESR 63 H (0-20) mm/hr Sodium 131 L (136-145) meq/L Potassium 4.1 (3.5-5.1) meq/L Chloride 101 (98-107) meq/L Carbon Dioxide 24.7 (21.0-32.0) meq/L Anion Gap 5 (5-15) meq/L BUN 19 H (7-18) mg/dL Creatinine 1.76 H (0.60-1.30) mg/dL Estimated GFR 39 L (>89) mL/min Random Glucose 210 H (74-106) mg/dL Calcium 8.9 (8.5-10.1) mg/dL Total Bilirubin 0.5 (0.2-1.0) mg/dL AST 19 (15-37) U/L ALT 28 (12-78) U/L Alkaline Phosphatase 54 (45-117) U/L C-Reactive Protein 14.40 H (0.00-0.30) mg/dL Total Protein 8.0 (6.4-8.2) g/dL Albumin 3.3 L (3.4-5.0) g/dL Imaging Data Radiologist's impression: Foot MRI 02/21/18 11:54 CONCLUSION: 1. Ulceration and soft tissue swelling along the volar tissues adjacent to the first metatarsal-phalangeal joint region. 2. Normal marrow signal with no evidence of osteomyelitis. 3. 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 Foot X-Ray 02/21/18 11:54 CONCLUSION: 1. Soft tissue swelling and ulceration along the volar aspect of the metatarsal head region. 2. No underlying bony abnormality. 3. Status post amputation of the second digit. Discharge Plan Discharge Disposition Patient Disposition: 30 Still Patient Discharge Condition Condition: Stable Discharge Details Diagnosis: Cellulitis of foot, SETH (acute kidney injury), Hyperglycemia Physicians Team ED Provider: Bin Grimm Attending Provider: Doug Ga Other Providers: Candace Abraham Discharge Interventions Interventions: Vital Signs Last Done: 02/21/18 11:34 Status ED Status: Admitted Patient
[2018-02-21] MEDS ORDERED: Vancomycin Inj 1 GM/200 ML PIGGYBACK IV.SIG ONE (11:59)
[2018-02-21 12:30] LABS: Baso # (Auto) 0.1 th/mm3 (0.0-0.2); Baso % (Auto) 0.8 % (0.0-2.0); Eos # (Auto) 0.2 th/mm3 (0.0-0.4); Eos % (Auto) 1.3 % (0.0-4.0); Hematocrit 36.5 % (39.0-51.0); Hemoglobin 12.3 gm/dL (13.0-17.0); Lymph % (Auto) 7.2 % (9.0-44.0); Mean Corpuscular HGB Conc 33.7 % (32.0-36.0); Mean Corpuscular Hemoglobin 29.7 pg (27.0-34.0); Mean Corpuscular Volume 88.2 fL (80.0-100.0); Mono # (Auto) 0.9 th/mm3 (0.0-0.9); Mono % (Auto) 6.2 % (0.0-8.0); Neut % (Auto) 84.5 % (16.0-70.0); Platelet Count 301 th/mm3 (150-450); Red Blood Count 4.14 mil/mm3 (4.50-5.90); Red Cell Distribution Width 13.9 % (11.6-17.2); White Blood Count 14.2 th/mm3 (4.0-11.0)
--- NOTE | 2018-02-21 12:47 | XR ---
EXAM DATE: 02/21/2018 11:54 AM EDT AGE/SEX: 62 years / Male INDICATIONS: Right foot swollen and has ulcer. History of amputation. CLINICAL DATA: This is the patient's initial encounter. Patient reports that signs and symptoms have been present for 7 - 11 months and indicates a pain score of 8/10. MEDICAL/SURGICAL HISTORY: . diabetes Coronary artery stent. COMPARISON: [facility] [place]TE ([id number]), 12/03/2016. . FINDINGS: AP, lateral and oblique views the right foot were obtained and demonstrate the patient is status post amputation of the second digit down to the metatarsal head. There is no acute fracture or underlying bony abnormality. No destructive change or periosteal new bone formation is identified. There is a s mall spur off the inferior calcaneus. There is soft tissue swelling and ulceration along the volar as pect of the metatarsal head region. CONCLUSION: 1. Soft tissue swelling and ulceration along the volar aspect of the metatarsal head region. 2. No underlying bony abnormality. 3. Status post amputation of the second digit. Electronically signed by: Dylon Dale MD 02/21/2018 12:46 PM EDT
[2018-02-21 12:55] LABS: Alanine Aminotransferase 28 U/L (12-78); Albumin 3.3 g/dL (3.4-5.0); Anion Gap 5 meq/L (5-15); Aspartate Aminotransferase 19 U/L (15-37); Blood Urea Nitrogen 19 mg/dL (7-18); Calcium 8.9 mg/dL (8.5-10.1); Carbon Dioxide 24.7 meq/L (21.0-32.0); Chloride 101 meq/L (98-107); Glomerular Filtration Rate 39 mL/min (>89); Glucose,Random 210 mg/dL (74-106); Potassium 4.1 meq/L (3.5-5.1); Sodium 131 meq/L (136-145)
[2018-02-21 12:57] LABS: Alkaline Phosphatase 54 U/L (45-117)
[2018-02-21] MEDS ORDERED: Sod Chloride 0.9% Inj 1,000 ML IV.SIG ONE (13:05)
[2018-02-21] MEDS ORDERED: Vancomycin Inj 1,000 MG in Sodium Chlor 0.9% Inj 250 ML IV.SIG ONE (14:00)
[2018-02-21] MEDS ORDERED: Gadobutrol PF 2 MMOL/2 ML Vial (for RAD) IV.SIG ONE (14:00)
--- NOTE | 2018-02-21 14:55 | MR ---
EXAM DATE: 02/21/2018 1:04 PM EDT AGE/SEX: 62 years / Male INDICATIONS: Swelling and ulceration. Evaluate for possible osteomyelitis. Ulcer on plantar surfa ce under great toe. CLINICAL DATA: This is the patient's initial encounter. Patient reports that signs and symptoms have been present for 4 - 6 days and indicates a pain score of 5/10. MEDICAL/SURGICAL HISTORY: Diabetes. Hypertension. Coronary artery stent. CABG. Toe amputation . COMPARISON: [facility], FOOT COMPLETE RIGHT 3V, 02/21/2018. . TECHNIQUE: Multiplanar, multisequence MRI examination was performed without contrast and after th e intravenous administration of 12 ml Gadavist (gadobutrol) single exam dose. FINDINGS: There is focal soft tissue swelling and ulceration involving the volar soft tissues adjacent to the f irst metatarsal phalangeal joint region. There is no distinct focal abscess. There is diffuse soft ti ssue swelling involving the mid and distal foot. There is normal marrow signal in the metatarsals and phalanges with no marrow edema or destructive change. The joints are intact in appearance. The flexo r and extensor tendons appear intact as well. The patient is status post amputation of the second dig it down to level of the metatarsal head. CONCLUSION: 1. Ulceration and soft tissue swelling along the volar tissues adjacent to the first metatarsal-phal angeal joint region. 2. Normal marrow signal with no evidence of osteomyelitis. 3. 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 Electronically signed by: Dylon Dale MD 02/21/2018 2:54 PM EDT
[2018-02-21] MEDS ORDERED: Dextrose 50% in Water 50 ML Vial IV.PUSH PRN (15:22)
[2018-02-21] MEDS ORDERED: Vancomycin Consult Pharmacy OTHER PRN (15:23)
[2018-02-21] MEDS ORDERED: Acetaminophen 325 MG Tablet PO PRN (15:24)
--- NOTE | 2018-02-21 15:32 | P.HPIM ---
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 he says that he's had a wound on the bottom of his right foot for about a year and half. he says that he started to notice some swelling and redness of the right foot two days ago which gradually got worse. he has minimal to mild pain at the site. he denies any fever or chills. he says that he was seen by today and was sent to ER for further evaluation. Review of Systems All other systems reviewed negative except as stated in HPI PMFSH - History History Provided By: Patient - Medical History Medical History: Medical History (Last Reviewed 02/21/18 @ 15:27 by Doug Ga MD) Diabetes HTN (hypertension) High cholesterol - Surgical History Surgical History: Surgical History (Last Reviewed 02/21/18 @ 15:27 by Doug Ga MD) Hx of CABG - Family History Family History: Family History (Last Reviewed 02/21/18 @ 15:27 by Doug Ga MD) Other Diabetes - Tobacco History Smoking Status: Never smoker - Alcohol History How Often Do You Have a Drink Containing Alcohol: Never - Immunization History Tetanus Immunization: <5 Years Hx Influenza Vaccine This Season: Yes Medications and Allergies Active Medications: Active Medications Acetaminophen (Tylenol) 650 mg PO Q4H PRN PRN Reason: fever/pain Dextrose (D50w Vial) 50 ml IV.PUSH UNSCH PRN PRN Reason: PER HYPOGLYCEMIA PROTOCOL Glucagon (Glucagon Inj) 1 mg OTHER PRN PRN PRN Reason: for Hypoglycemia Protocol Sodium Chloride (Ns Inj) 1,000 mls @ 100 mls/hr IV.CONT .Q10H ANA CRISTINA Piperacillin/Tazobactam/Dextrose (Zosyn 3.375 Gm Premix) 50 mls @ 100 mls/hr IV.SIG Q6H ANA CRISTINA Insulin Aspart (Novolog Insulin Correctional Sugar Inj) 0 unit SQ ACHS ANA CRISTINA; Protocol Pharmacy Profile Note (Vancomycin Consult Pharmacy) 1 each OTHER UNSCH PRN PRN Reason: Pharmacy to dose Allergies Allergy/AdvReac Type Severity Reaction Status Date / Time No Known Allergies Allergy Verified 02/21/18 11:40 Exam Vital signs: Vital Signs 02/21/18 11:34 Temperature 99.2 F Pulse Rate 94 H Respiratory Rate 18 Blood Pressure 172/78 H Pulse Oximetry 97 Intake & Output 02/20/18 02/21/18 02/21/18 18:59 06:59 18:59 Intake Total 100 / 100 Balance 100 / 100 Weight 73.936 kg Intake: IV 100 / 100 Rocephin Inj 1,000 MG In NS Inj 100 / 100 100 ML @ 200 mls/hr IV.SIG ONCE ONE Rx#:[id number] - Constitutional no acute distress - Routine HEENT Exam Eye: Present: PERRL - Routine Neck Exam Present: supple - Routine Respiratory Exam Present: CTA bilaterally - Routine Cardiovascular Exam Present: RRR - Routine Abdominal Exam Present: soft - Routine Extremities Exam Present: edema Comments: swelling/ erythema noted over the right foot. - Routine Skin Exam Present: wounds (open wound noted on the bottom of the right foot.) - Routine Neurological Exam Present: alert, oriented X3 Results - Labs CBC & Chem 7: 02/21/18 12:15 02/21/18 12:15 Labs: Short CBC 02/21/18 Range/Units 12:15 WBC 14.2 H (4.0-11.0) th/mm3 Hgb 12.3 L (13.0-17.0) gm/dL Hct 36.5 L (39.0-51.0) % Plt Count 301 (150-450) th/mm3 BMP 02/21/18 12:15 Sodium 131 L Potassium 4.1 Chloride 101 Carbon Dioxide 24.7 BUN 19 H Creatinine 1.76 H Calcium 8.9 Liver Function 02/21/18 Range/Units 12:15 Total Bilirubin 0.5 (0.2-1.0) mg/dL AST 19 (15-37) U/L ALT 28 (12-78) U/L Alkaline Phosphatase 54 (45-117) U/L Albumin 3.3 L (3.4-5.0) g/dL - Imaging Impressions Foot MRI 02/21/18 11:54 CONCLUSION: 1. Ulceration and soft tissue swelling along the volar tissues adjacent to the first metatarsal-phalangeal joint region. 2. Normal marrow signal with no evidence of osteomyelitis. 3. 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 Foot X-Ray 02/21/18 11:54 CONCLUSION: 1. Soft tissue swelling and ulceration along the volar aspect of the metatarsal head region. 2. No underlying bony abnormality. 3. Status post amputation of the second digit. Caprini VTE Risk Assessment Caprini VTE Risk Assessment: Moderate/High Risk (score >= 2) Caprini Risk Assessment Model: Point Value = 1 Point Value = 2 Point Value = 3 Point Value = 5 Age 41-60 Minor surgery BMI > 25 kg/m2 Swollen legs Varicose veins or History of unexplained or recurrent spontaneous Oral contraceptives or hormone replacement Sepsis (< 1 month) Serious lung disease, including pneumonia (< 1 month) Abnormal pulmonary function Acute myocardial infarction Congestive heart failure (< 1 month) History of inflammatory bowel disease Medical patient at bed rest Age 61-74 Arthroscopic surgery Major open surgery (> 45 min) Laparoscopic surgery (> 45 min) Malignancy Confined to bed (> 72 hours) Immobilizing plaster cast Central venous access Age >= 75 History of VTE Family history of VTE Factor V Leiden Prothrombin [id number] Lupus anticoagulant Anticardiolipin antibodies Elevated serum homocysteine Heparin-induced thrombocytopenia Other congenital or acquired thrombophilia Stroke (< 1 month) Elective arthroplasty Hip, pelvis, or leg fracture Acute spinal cord injury (< 1 month) Prophylaxis Regimen: Total Risk Factor Score Risk Level Prophylaxis Regimen 0-1 Low Early ambulation 2 Moderate Order ONE of the following: *Sequential Compression Device (SCD) *Heparin 5000 units SQ BID 3-4 Higher Order ONE of the following medications: *Heparin 5000 units SQ TID *Enoxaparin/Lovenox 40 mg SQ daily (WT < 150 kg, CrCl > 30 mL/min) *Enoxaparin/Lovenox 30 mg SQ daily (WT < 150 kg, CrCl > 10-29 mL/min) *Enoxaparin/Lovenox 30 mg SQ BID (WT < 150 kg, CrCl > 30 mL/min) AND/OR *Sequential Compression Device (SCD) 5 or more Highest Order ONE of the following medications: *Heparin 5000 units SQ TID (Preferred with Epidurals) *Enoxaparin/Lovenox 40 mg SQ daily (WT < 150 kg, CrCl > 30 mL/min) *Enoxaparin/Lovenox 30 mg SQ daily (WT < 150 kg, CrCl > 10-29 mL/min) *Enoxaparin/Lovenox 30 mg SQ BID (WT < 150 kg, CrCl > 30 mL/min) AND *Sequential Compression Device (SCD) Assessment and Plan - Plan A/P - right foot infection MRI of the right foot with no osteomyelitis- however with Ulceration and soft tissue swelling along the volar tissues adjacent to the first metatarsal-phalangeal joint region. ESR 63/ CRP 14.4 continue with broad spectrum IV antibiotics and follow the cultures- will consult podiatry. -acute kidney injury; start on IV fluid and monitor the renal function. - CAD- s/p CABG/ diabetes mellitus; will verify the home meds and resume as appropriate- start on accu-check with SSI. -DVT prophylaxis with subq Heparin. Discussed Condition With: ER physician and the patient.
[2018-02-21] MEDS: Piperacil/Tazo 3.375 GM Premix 50 ML IV.SIG SCH ×2 (16:23→22:31)
[2018-02-21] MEDS: Sod Chloride 0.9% Inj 1,000 ML IV.CONT SCH (16:26)
[2018-02-21] MEDS: Insulin NovoLOG Aspart Correctional Sugar Inj SQ SCH ×2 (16:30→22:21)
[2018-02-21] MEDS ORDERED: Vancomycin Inj 500 MG in Sodium Chlor 0.9% Inj 100 ML IV.SIG ONE (17:00)
[2018-02-22] MEDS: Sod Chloride 0.9% Inj 1,000 ML IV.CONT SCH ×3 (00:29→21:45)
[2018-02-22] MEDS: Piperacil/Tazo 3.375 GM Premix 50 ML IV.SIG SCH ×4 (04:47→21:45)
[2018-02-22 07:22] LABS: Baso # (Auto) 0.1 th/mm3 (0.0-0.2); Baso % (Auto) 0.8 % (0.0-2.0); Eos # (Auto) 0.3 th/mm3 (0.0-0.4); Eos % (Auto) 3.1 % (0.0-4.0); Hematocrit 33.1 % (39.0-51.0); Hemoglobin 11.6 gm/dL (13.0-17.0); Lymph # (Auto) 1.1 th/mm3 (1.0-4.8); Lymph % (Auto) 9.4 % (9.0-44.0); Mean Corpuscular HGB Conc 34.9 % (32.0-36.0); Mean Corpuscular Volume 85.9 fL (80.0-100.0); Mean Platelet Volume 8.3 fL (7.0-11.0); Mono # (Auto) 0.9 th/mm3 (0.0-0.9); Mono % (Auto) 8.1 % (0.0-8.0); Neut # (Auto) 8.8 th/mm3 (1.8-7.7); Neut % (Auto) 78.6 % (16.0-70.0); Platelet Count 282 th/mm3 (150-450); Red Blood Count 3.85 mil/mm3 (4.50-5.90); Red Cell Distribution Width 14.1 % (11.6-17.2); White Blood Count 11.2 th/mm3 (4.0-11.0)
[2018-02-22 07:57] LABS: Calcium 8.3 mg/dL (8.5-10.1); Carbon Dioxide 24.3 meq/L (21.0-32.0); Potassium 3.8 meq/L (3.5-5.1)
[2018-02-22] MEDS: Insulin NovoLOG Aspart Correctional Sugar Inj SQ SCH ×4 (08:22→21:27)
[2018-02-22] MEDS: Heparin - SQ 10,000 UNITS/ML Vial SQ SCH ×2 (08:23→21:29)
--- NOTE | 2018-02-22 12:23 | P.PN ---
Subjective Interval history: + pain right foot states he has been dealing with this for 1 1/2 years- last 11/2016- had 2nd toe amputation chronic left foot ulcers- plantar area denies any fever or chills PCP from [place] Dr Dong states on lantus 90 units HS, + Novolog SS+ metformin 1 gm bid -good hypoglycemic awareness Physical Exam Vital signs: Vital Signs 02/21/18 16:00 02/21/18 16:11 02/21/18 20:00 Temperature 99.1 F 99.7 F H Pulse Rate 86 82 83 Respiratory Rate 24 20 20 Blood Pressure 124/59 L 168/72 H 143/63 H Pulse Oximetry 96 100 96 02/22/18 00:00 02/22/18 04:00 02/22/18 07:54 Temperature 99 F 98.8 F 97.8 F Pulse Rate 86 79 76 Respiratory Rate 20 20 18 Blood Pressure 124/67 141/73 H 111/56 L Pulse Oximetry 95 95 97 Intake & Output 02/21/18 02/22/18 02/22/18 18:59 06:59 18:59 Intake Total 1500 / 1500 1100 / 1100 1290 / 1290 Output Total 1800 / 1800 200 / 200 Balance 1500 / 1500 -700 / -700 1090 / 1090 Weight 73.936 kg 119.9 kg Intake: IV 1500 / 1500 1100 / 1100 1050 / 1050 NS Inj 1,000 ML @ 100 mls/hr IV 1000 / 1000 1000 / 1000 .CONT .Q10H [facility] Rx#:[id number] Zosyn 3.375 GM Premix 50 ML @ 50 / 50 100 / 100 50 / 50 100 mls/hr IV.SIG Q6H [facility] Rx#: [id number] NS Inj 1,000 ML @ Wide Open IV. 1000 / 1000 SIG BOLUS ONE Rx#:[id number] Vancomycin Inj 1,000 MG In NS 250 / 250 Inj 250 ML @ 200 mls/hr IV.SIG ONCE ONE Rx#:[id number] Vancomycin Inj 500 MG In NS Inj 100 / 100 100 ML @ 200 mls/hr IV.SIG ONCE ONE Rx#:[id number] Rocephin Inj 1,000 MG In NS Inj 100 / 100 100 ML @ 200 mls/hr IV.SIG ONCE ONE Rx#:[id number] Oral 240 / 240 Output: Urine 1800 / 1800 200 / 200 Other: Date of Last Bowel Movement 02/21/18 Narrative: awake and alert, no distress anicteric no nuchal rigidity lungs- no rales regular rhythm abdomen soft, nontender right LE- right foot - with erythema and swelling of the forefoot area, second toe (amputated- well healed) separate area of erythema on the medial aspect of the lower leg ++ strong DP, PT plantar aspect of foot- medial aspect with a hemorrhagic bullae plantar aspect 2 separate dry open wounds- healed with some callous formation Results - Labs CBC & Chem 7: 02/22/18 05:30 02/22/18 05:30 Laboratory Results - last 24 hr 02/21/18 02/21/18 02/21/18 12:15 12:15 12:15 WBC 14.2 H RBC 4.14 L Hgb 12.3 L Hct 36.5 L MCV 88.2 MCH 29.7 MCHC 33.7 RDW 13.9 Plt Count 301 MPV 8.0 Neut % (Auto) 84.5 H Lymph % (Auto) 7.2 L Glenn % (Auto) 6.2 Eos % (Auto) 1.3 Baso % (Auto) 0.8 Neut # (Auto) 12.0 H Lymph # (Auto) 1.0 Glenn # (Auto) 0.9 Eos # (Auto) 0.2 Baso # (Auto) 0.1 WBC Differential . Differential Comment Auto diff final ESR 63 H Sodium 131 L Potassium 4.1 Chloride 101 Carbon Dioxide 24.7 Anion Gap 5 BUN 19 H Creatinine 1.76 H Estimated GFR 39 L POC Glucose Random Glucose 210 H Calcium 8.9 Total Bilirubin 0.5 AST 19 ALT 28 Alkaline Phosphatase 54 C-Reactive Protein 14.40 H Total Protein 8.0 Albumin 3.3 L 02/21/18 02/21/18 02/22/18 16:25 22:13 05:30 WBC 11.2 H RBC 3.85 L Hgb 11.6 L Hct 33.1 L MCV 85.9 MCH 30.0 MCHC 34.9 RDW 14.1 Plt Count 282 MPV 8.3 Neut % (Auto) 78.6 H Lymph % (Auto) 9.4 Glenn % (Auto) 8.1 H Eos % (Auto) 3.1 Baso % (Auto) 0.8 Neut # (Auto) 8.8 H Lymph # (Auto) 1.1 Glenn # (Auto) 0.9 Eos # (Auto) 0.3 Baso # (Auto) 0.1 WBC Differential . Differential Comment Auto diff final ESR Sodium Potassium Chloride Carbon Dioxide Anion Gap BUN Creatinine Estimated GFR POC Glucose 145 H 172 H Random Glucose Calcium Total Bilirubin AST ALT Alkaline Phosphatase C-Reactive Protein Total Protein Albumin 02/22/18 02/22/18 02/22/18 05:30 07:14 11:38 WBC RBC Hgb Hct MCV MCH MCHC RDW Plt Count MPV Neut % (Auto) Lymph % (Auto) Glenn % (Auto) Eos % (Auto) Baso % (Auto) Neut # (Auto) Lymph # (Auto) Glenn # (Auto) Eos # (Auto) Baso # (Auto) WBC Differential Differential Comment ESR Sodium 138 Potassium 3.8 Chloride 102 Carbon Dioxide 24.3 Anion Gap 12 BUN 15 Creatinine 1.44 H Estimated GFR 50 L POC Glucose 165 H 286 H Random Glucose 144 H Calcium 8.3 L Total Bilirubin AST ALT Alkaline Phosphatase C-Reactive Protein Total Protein Albumin Microbiology 02/21/18 12:39 Wound - Foot Gram Stain - Final 02/21/18 12:39 Wound - Foot Wound Culture - Preliminary Group B beta Strep 02/21/18 12:15 Blood - Peripheral Aerobic Blood Culture - Preliminary No growth in 1 day 02/21/18 12:15 Blood - Peripheral Anaerobic Blood Culture - Preliminary No growth in 1 day 02/21/18 12:21 Blood - Peripheral Aerobic Blood Culture - Preliminary No growth in 1 day 02/21/18 12:21 Blood - Peripheral Anaerobic Blood Culture - Preliminary No growth in 1 day - Imaging Impressions Foot MRI 02/21/18 11:54 CONCLUSION: 1. Ulceration and soft tissue swelling along the volar tissues adjacent to the first metatarsal-phalangeal joint region. 2. Normal marrow signal with no evidence of osteomyelitis. 3. 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 Foot X-Ray 02/21/18 11:54 CONCLUSION: 1. Soft tissue swelling and ulceration along the volar aspect of the metatarsal head region. 2. No underlying bony abnormality. 3. Status post amputation of the second digit. Assessment and Plan - Plan 62 years old male states recurrent right foot infection- ahd amputation of 2nd toe 11/2016 -placed on 7 days course of po antibotics x 2 in the past and patient states improved but recurs again good epripheral pulses on exam Right foot cellulitis- Recurrent - failed OP therapy with chronic plantar foot ulcers x 2 + one area of hemorrhagic bullae - does not appear infected - MRI of the right foot with soft tissue swelling no osteomyelitis- with Ulceration and soft tissue swelling along the volar tissues adjacent to the first metatarsal-phalangeal joint region. - ESR 63/ CRP 14.4 - continue with broad spectrum IV antibiotics and follow the cultures - Podiatry consulted - will consult Infectious disease specialty for recommendation -acute kidney injury likely with underlying CKI - continue on IV fluid and monitor the renal function. - ff BMP- DM type 2- - per patient home regimen on lantus 90 unist HS and Novolog sliding scale + metformin 1 gm bid -state good hypoglycemic awareness -accucheck with sliding scael coverage - start on lantus 20 untis hs while here and adjust - Hold Metformin with SETH CAD- s/p CABG - start home meds - ask nurse to confirm and verify medications -DVT prophylaxis with subq Heparin.
[2018-02-22] MEDS: Vancomycin Inj 1,750 MG in Sodium Chlor 0.9% Inj 500 ML IV.SIG SCH (15:51)
--- NOTE | 2018-02-22 18:47 | P.CON ---
History of Present Illness Service: Podiatry/foot and ankle surgery Consult date: 02/22/18 Reason for Consult: Right foot infection Primary Care Provider: Shiraz Kong Chief Complaint: right foot infection History of Present Illness: Podiatry consult for this 62-year-old male with history of which gradually coronary artery disease, diabetes who was sent to the ER by his assistant broker, Dr. Rosario Whitt for right foot infection. States he has had a wound on the bottom of his foot for about a year and a half and he noticed increased swelling and redness of the right foot increased. He denies any nausea vomiting fevers or chills. Review of Systems No: All other systems reviewed negative except as stated in HPI Constitutional: Denies chills, Denies fatigue, Denies fever(s), Denies night sweats, Denies weight gain Gastrointestinal: Denies nausea, Denies vomiting PMFSH - History History Provided By: Patient - Medical History Medical History: Medical History (Last Reviewed 02/22/18 @ 18:46 by Candace Abraham DPM) Diabetes HTN (hypertension) High cholesterol - Surgical History Surgical History: Surgical History (Last Reviewed 02/22/18 @ 18:46 by Candace Abraham DPM) Hx of CABG - Family History Family History: Family History (Last Reviewed 02/22/18 @ 18:47 by Candace Abraham DPM) Other Diabetes - Tobacco History Smoking Status: Never smoker - Alcohol History How Often Do You Have a Drink Containing Alcohol: Never - Immunization History Tetanus Immunization: <5 Years Hx Influenza Vaccine This Season: Yes Medications and Allergies Active Medications: Active Medications Acetaminophen (Tylenol) 650 mg PO Q4H PRN PRN Reason: fever/pain Cetirizine HCl (Zyrtec) 10 mg PO DAILY [facility] Dextrose (D50w Vial) 50 ml IV.PUSH UNSCH PRN PRN Reason: PER HYPOGLYCEMIA PROTOCOL Fenofibrate (Tricor) 145 mg PO DAILY [facility] Furosemide (Lasix) 20 mg PO BID@0900,1800 [facility] Glucagon (Glucagon Inj) 1 mg OTHER PRN PRN PRN Reason: for Hypoglycemia Protocol Heparin Sodium (Porcine) (Heparin Inj) 5,000 units SQ Q12HR [facility] Last Admin: 02/22/18 08:23 Dose: 5,000 units Sodium Chloride (Ns Inj) 1,000 mls @ 100 mls/hr IV.CONT .Q10H [facility] Last Admin: 02/22/18 11:37 Dose: 100 mls/hr Piperacillin/Tazobactam/Dextrose (Zosyn 3.375 Gm Premix) 50 mls @ 100 mls/hr IV.SIG Q6H [facility] Last Infusion: 02/22/18 16:36 Dose: Infused Vancomycin HCl 1,750 mg/ (Sodium Chloride) 517.5 mls @ 250 mls/hr IV.SIG Q24H [facility] Last Infusion: 02/22/18 17:44 Dose: Infused Insulin Aspart (Novolog Insulin Correctional Sugar Inj) 0 unit SQ [facility]; Protocol Last Admin: 02/22/18 16:06 Dose: 3 unit Insulin Detemir (Levemir Inj) 20 unit SQ [facility] Lisinopril (Prinivil) 20 mg PO BID [facility] Miscellaneous Information ([facility] [place] [facility] Ordered Lab Info) 0 each OTHER ONCE ONE Stop: 02/24/18 14:46 Mometasone Furoate (Nasonex Nasal [place]) 1 spray EACH NARE BID [facility] Pharmacy Profile Note (Vancomycin Consult Pharmacy) 1 each OTHER UNSCH PRN PRN Reason: Pharmacy to dose Allergies Allergy/AdvReac Type Severity Reaction Status Date / Time No Known Allergies Allergy Verified 02/21/18 11:40 Home Medications Medication Instructions Recorded Confirmed Type acetaminophen [Tylenol] 650 mg PO Q4H PRN 02/22/18 02/22/18 History aspirin 81 mg PO DAILY 02/22/18 02/22/18 History fenofibrate nanocrystallized 145 mg PO DAILY 02/22/18 02/22/18 History [Tricor] fexofenadine [So Allergy] 180 mg PO Q6HR 02/22/18 02/22/18 History furosemide [Lasix] 20 mg PO BID 02/22/18 02/22/18 History insulin aspart U-100 [Novolog 1 sliding scale dose SUBCUT UD 02/22/18 02/22/18 History U-100 Insulin aspart] insulin glargine [Lantus U-100 90 units HS 02/22/18 02/22/18 History Insulin] lisinopril 20 mg PO BID 02/22/18 02/22/18 History metformin 1,000 mg PO BID 02/22/18 02/22/18 History metoprolol tartrate 25 mg PO BID 02/22/18 02/22/18 History simvastatin 80 mg PO QPM 02/22/18 02/22/18 History sulfamethoxazole-trimethoprim 02/22/18 History Physical Exam Vital signs: Vital Signs 02/21/18 20:00 02/22/18 00:00 02/22/18 04:00 Temperature 99.7 F H 99 F 98.8 F Pulse Rate 83 86 79 Respiratory Rate 20 20 20 Blood Pressure 143/63 H 124/67 141/73 H Pulse Oximetry 96 95 95 02/22/18 07:54 02/22/18 12:00 02/22/18 15:39 Temperature 97.8 F 98.2 F 98.7 F Pulse Rate 76 73 85 Respiratory Rate 18 18 18 Blood Pressure 111/56 L 128/75 156/69 H Pulse Oximetry 97 98 97 Intake & Output 02/21/18 02/22/18 02/22/18 18:59 06:59 18:59 Intake Total 1500 / 1500 1100 / 1100 2097.5 / 2097.5 Output Total 1800 / 1800 1250 / 1250 Balance 1500 / 1500 -700 / -700 847.5 / 847.5 Weight 73.936 kg 119.9 kg Intake: IV 1500 / 1500 1100 / 1100 1617.5 / 1617.5 NS Inj 1,000 ML @ 100 mls/hr IV 1000 / 1000 1000 / 1000 .CONT .Q10H [facility] Rx#:[id number] Zosyn 3.375 GM Premix 50 ML @ 50 / 50 100 / 100 100 / 100 100 mls/hr IV.SIG Q6H [facility] Rx#: [id number] NS Inj 1,000 ML @ Wide Open IV. 1000 / 1000 SIG BOLUS ONE Rx#:[id number] Vancomycin Inj 1,000 MG In NS 250 / 250 Inj 250 ML @ 200 mls/hr IV.SIG ONCE ONE Rx#:[id number] Vancomycin Inj 1,750 MG In NS 517.5 / 517.5 Inj 500 ML @ 250 mls/hr IV.SIG Q24H [facility] Rx#:[id number] Vancomycin Inj 500 MG In NS Inj 100 / 100 100 ML @ 200 mls/hr IV.SIG ONCE ONE Rx#:[id number] Rocephin Inj 1,000 MG In NS Inj 100 / 100 100 ML @ 200 mls/hr IV.SIG ONCE ONE Rx#:[id number] Oral 480 / 480 Output: Urine 1800 / 1800 1250 / 1250 Other: Date of Last Bowel Movement 02/21/18 Narrative: GENERAL: This is a well-nourished, well-developed patient, in no apparent distress. SKIN: Sub 1 ulceration with associated erythema and edema HEAD: Atraumatic. EYES: Pupils equal round and reactive. ENT: Airway patent. NECK: Trachea midline. RESPIRATORY: Nonlabored breathing. MUSCULOSKELETAL:. Negative Homans sign bilaterally. NEUROLOGICAL: Awake and alert. Normal speech. Lower extremity physical exam: Vascular: Dorsalis pedis 2/4, posterior tibial diminished. Capillary refill time within normal limits to digits X5 bilateral foot. Edema present to right foot to ankle Neuro: Gross sensation intact to bilateral lower extremity. Pinpoint sensation decreased bilateral lower extremity. No hyperalgesia noted to bilateral lower extremity Dermatology: Submetatarsal 1 ulceration noted with associated fluctuance and purulent drainage hyperkeratotic border and fibrotic base. Hematogenous blister noted medial right foot. Increased erythema and edema noted to right foot. Musculoskeletal: Tender to palpation to submetatarsal 1. Assessment and Plan - Plan 62-year-old male with right foot infection Patient examined evaluated with all questions answered To OR tomorrow for right foot incision and drainage Consent to be obtained Consent to read right foot incision and drainage with possible wound VAC placement N.p.o. after midnight MRI and x-ray reviewed, no osteomyelitis noted on MRI We will obtain the OR cultures Recommend infectious disease consult
[2018-02-22] MEDS: Furosemide 20 MG Tablet PO SCH (21:17)
[2018-02-22] MEDS: Lisinopril 20 MG Tablet PO SCH (21:17)
[2018-02-22] MEDS: Insulin Detemir Inj 1,000 UNIT/10 ML Vial SQ SCH (21:26)
[2018-02-23] MEDS: Piperacil/Tazo 3.375 GM Premix 50 ML IV.SIG SCH ×4 (04:32→21:52)
[2018-02-23] MEDS: Insulin NovoLOG Aspart Correctional Sugar Inj SQ SCH ×4 (07:35→22:08)
[2018-02-23] MEDS ORDERED: Sodium Chlor 0.9% Inj 500 ML IV.CONT ONE (08:00)
[2018-02-23] MEDS ORDERED: Metoprolol Tartrate 25 MG Tablet PO ONE (08:00)
[2018-02-23] MEDS ORDERED: Chlorhexidine Gluconate 2% 1 Pack (2 Cloths) TOPICAL ONE (08:00)
[2018-02-23] MEDS ORDERED: Lidocaine PF 1% Inj 5 ML Syringe OTHER ONE (08:21)
[2018-02-23] MEDS ORDERED: Phenylephrine/NS 1000 MCG/10ML Syringe IV.PUSH ONE (08:21)
--- NOTE | 2018-02-23 08:29 | P.PNPOD ---
Subjective Interval history: Patient seen bedside in preop. Agrees with planned procedure. Physical Exam Vital signs: Vital Signs 02/22/18 12:00 02/22/18 15:39 02/22/18 20:00 Temperature 98.2 F 98.7 F 98.5 F Pulse Rate 73 85 94 H Respiratory Rate 18 18 18 Blood Pressure 128/75 156/69 H 158/69 H Pulse Oximetry 98 97 95 02/23/18 00:00 02/23/18 04:00 02/23/18 08:00 Temperature 98.6 F 98.7 F 98 F Pulse Rate 91 H 82 83 Respiratory Rate 20 23 18 Blood Pressure 131/72 108/72 155/75 H Pulse Oximetry 96 97 95 Intake & Output 02/22/18 02/23/18 02/23/18 18:59 06:59 18:59 Intake Total 2097.5 / 2097.5 1100 / 1100 Output Total 1250 / 1250 800 / 800 300 / 300 Balance 847.5 / 847.5 300 / 300 -300 / -300 Weight 118.8 kg Intake: IV 1617.5 / 1617.5 1100 / 1100 NS Inj 1,000 ML @ 100 mls/hr IV 1000 / 1000 1000 / 1000 .CONT .Q10H [facility] Rx#:[id number] Zosyn 3.375 GM Premix 50 ML @ 100 / 100 100 / 100 100 mls/hr IV.SIG Q6H [facility] Rx#: [id number] Vancomycin Inj 1,750 MG In NS 517.5 / 517.5 Inj 500 ML @ 250 mls/hr IV.SIG Q24H [facility] Rx#:[id number] Oral 480 / 480 Output: Urine 1250 / 1250 800 / 800 300 / 300 Other: Date of Last Bowel Movement 02/22/18 02/22/18 Weight On Admission 118.8 kg Medications and Allergies Active Medications: Active Medications Acetaminophen (Tylenol) 650 mg PO Q4H PRN PRN Reason: fever/pain Cetirizine HCl (Zyrtec) 10 mg PO Q24H [facility] Last Admin: 02/22/18 21:17 Dose: 10 mg Dextrose (D50w Vial) 50 ml IV.PUSH UNSCH PRN PRN Reason: PER HYPOGLYCEMIA PROTOCOL Fenofibrate (Tricor) 145 mg PO DAILY [facility] Fluticasone Propionate (Flonase Nasal [place]) 1 spray EACH NARE Q24H [facility] Last Admin: 02/22/18 21:27 Dose: 1 spray Furosemide (Lasix) 20 mg PO BID@0900,1800 [facility] Last Admin: 02/22/18 21:17 Dose: 20 mg Glucagon (Glucagon Inj) 1 mg OTHER PRN PRN PRN Reason: for Hypoglycemia Protocol Heparin Sodium (Porcine) (Heparin Inj) 5,000 units SQ Q12HR [facility] Last Admin: 02/22/18 21:29 Dose: Not Given Sodium Chloride (Ns Inj) 1,000 mls @ 100 mls/hr IV.CONT .Q10H [facility] Last Infusion: 02/23/18 07:30 Dose: 0 mls/hr Piperacillin/Tazobactam/Dextrose (Zosyn 3.375 Gm Premix) 50 mls @ 100 mls/hr IV.SIG Q6H [facility] Last Infusion: 02/23/18 06:28 Dose: Infused Vancomycin HCl 1,750 mg/ (Sodium Chloride) 517.5 mls @ 250 mls/hr IV.SIG Q24H [facility] Last Infusion: 02/22/18 17:44 Dose: Infused Lactated Ringer's (Lr 1000 Ml Inj) 1,000 mls @ 30 mls/hr IV.CONT .Q24H ONE Stop: 02/24/18 07:59 Last Admin: 02/23/18 07:25 Dose: 30 mls/hr Sodium Chloride (Ns Inj) 500 mls @ 30 mls/hr IV.CONT .[id number] ONE Stop: 02/24/18 00:39 Insulin Aspart (Novolog Insulin Correctional Sugar Inj) 0 unit SQ ACHS [facility]; Protocol Last Admin: 02/23/18 07:35 Dose: Not Given Insulin Detemir (Levemir Inj) 20 unit SQ HS [facility] Last Admin: 02/22/18 21:26 Dose: 20 unit Lisinopril (Prinivil) 20 mg PO BID [facility] Last Admin: 02/22/18 21:17 Dose: 20 mg Miscellaneous Information ([facility] [place] [facility] Ordered Lab Info) 0 each OTHER ONCE ONE Stop: 02/24/18 14:46 Pharmacy Profile Note (Vancomycin Consult Pharmacy) 1 each OTHER UNSCH PRN PRN Reason: Pharmacy to dose Allergies Allergy/AdvReac Type Severity Reaction Status Date / Time No Known Allergies Allergy Verified 02/21/18 11:40 Home Medications Medication Instructions Recorded Confirmed Type acetaminophen [Tylenol] 650 mg PO Q4H PRN 02/22/18 02/22/18 History aspirin 81 mg PO DAILY 02/22/18 02/22/18 History fenofibrate nanocrystallized 145 mg PO DAILY 02/22/18 02/22/18 History [Tricor] fexofenadine [So Allergy] 180 mg PO Q6HR 02/22/18 02/22/18 History furosemide [Lasix] 20 mg PO BID 02/22/18 02/22/18 History insulin aspart U-100 [Novolog 1 sliding scale dose SUBCUT UD 02/22/18 02/22/18 History U-100 Insulin aspart] insulin glargine [Lantus U-100 90 units HS 02/22/18 02/22/18 History Insulin] lisinopril 20 mg PO BID 02/22/18 02/22/18 History metformin 1,000 mg PO BID 02/22/18 02/22/18 History metoprolol tartrate 25 mg PO BID 02/22/18 02/22/18 History simvastatin 80 mg PO QPM 02/22/18 02/22/18 History sulfamethoxazole-trimethoprim 02/22/18 History Results - Labs CBC & Chem 7: 02/22/18 05:30 02/22/18 05:30 Laboratory Results - last 24 hr 02/22/18 02/22/18 02/22/18 11:38 15:42 21:16 POC Glucose 286 H 224 H 287 H 02/23/18 07:22 POC Glucose 182 H Microbiology 02/21/18 12:39 Wound - Foot Gram Stain - Final 02/21/18 12:39 Wound - Foot Wound Culture - Preliminary Group B beta Strep 02/21/18 12:15 Blood - Peripheral Aerobic Blood Culture - Preliminary No growth in 1 day 02/21/18 12:15 Blood - Peripheral Anaerobic Blood Culture - Preliminary No growth in 1 day 02/21/18 12:21 Blood - Peripheral Aerobic Blood Culture - Preliminary No growth in 1 day 02/21/18 12:21 Blood - Peripheral Anaerobic Blood Culture - Preliminary No growth in 1 day Assessment and Plan - Plan 62 year old with right foot infection To OR for right foot incision and drainage with possible wound vac placement Patient has remained NPO Consent signed and obtained Possible wound vac placement Continue IV abx
[2018-02-23] MEDS ORDERED: Bupivacaine PF 0.25% Inj 30 ML Vial ONE (09:09)
[2018-02-23] MEDS ORDERED: Misc Info for Pharmacy OTHER STA (09:28)
[2018-02-23] MEDS ORDERED: fentaNYL Citrate Inj 100 MCG/2 ML Ampul ONE (09:34)
[2018-02-23] MEDS: Heparin - SQ 10,000 UNITS/ML Vial SQ SCH ×2 (09:39→21:52)
--- NOTE | 2018-02-23 09:55 | P.PN ---
Subjective Interval history: went for I and D with VAC application this am tolerated well Physical Exam Vital signs: Vital Signs 02/22/18 12:00 02/22/18 15:39 02/22/18 20:00 Temperature 98.2 F 98.7 F 98.5 F Pulse Rate 73 85 94 H Respiratory Rate 18 18 18 Blood Pressure 128/75 156/69 H 158/69 H Pulse Oximetry 98 97 95 02/23/18 00:00 02/23/18 04:00 02/23/18 08:00 Temperature 98.6 F 98.7 F 98 F Pulse Rate 91 H 82 83 Respiratory Rate 20 23 18 Blood Pressure 131/72 108/72 155/75 H Pulse Oximetry 96 97 95 02/23/18 09:40 Temperature 97.6 F Pulse Rate 72 Respiratory Rate 14 Blood Pressure 94/52 L Pulse Oximetry 96 Intake & Output 02/22/18 02/23/18 02/23/18 18:59 06:59 18:59 Intake Total 2097.5 / 2097.5 1100 / 1100 Output Total 1250 / 1250 800 / 800 300 / 300 Balance 847.5 / 847.5 300 / 300 -300 / -300 Weight 118.8 kg Intake: IV 1617.5 / 1617.5 1100 / 1100 NS Inj 1,000 ML @ 100 mls/hr IV 1000 / 1000 1000 / 1000 .CONT .Q10H [facility] Rx#:[id number] Zosyn 3.375 GM Premix 50 ML @ 100 / 100 100 / 100 100 mls/hr IV.SIG Q6H [facility] Rx#: [id number] Vancomycin Inj 1,750 MG In NS 517.5 / 517.5 Inj 500 ML @ 250 mls/hr IV.SIG Q24H [facility] Rx#:[id number] Oral 480 / 480 Output: Urine 1250 / 1250 800 / 800 300 / 300 Other: Mode Setting Right Lower Foot Continuous Date of Last Bowel Movement 02/22/18 02/22/18 Weight On Admission 118.8 kg Results - Labs CBC & Chem 7: 02/22/18 05:30 02/24/18 05:22 Laboratory Results - last 24 hr 02/22/18 02/22/18 02/22/18 11:38 15:42 21:16 POC Glucose 286 H 224 H 287 H 02/23/18 07:22 POC Glucose 182 H Microbiology 02/21/18 12:39 Wound - Foot Gram Stain - Final 02/21/18 12:39 Wound - Foot Wound Culture - Preliminary Group B beta Strep 02/21/18 12:15 Blood - Peripheral Aerobic Blood Culture - Preliminary No growth in 1 day 02/21/18 12:15 Blood - Peripheral Anaerobic Blood Culture - Preliminary No growth in 1 day 02/21/18 12:21 Blood - Peripheral Aerobic Blood Culture - Preliminary No growth in 1 day 02/21/18 12:21 Blood - Peripheral Anaerobic Blood Culture - Preliminary No growth in 1 day Assessment and Plan - Plan 62 years old male states recurrent right foot infection- ahd amputation of 2nd toe 11/2016 -placed on 7 days course of po antibotics x 2 in the past and patient states improved but recurs again good epripheral pulses on exam Right foot cellulitis- Recurrent - failed OP therapy with chronic plantar foot ulcers x 2 + one area of hemorrhagic bullae - does not appear infected S/P I and D with VAC application right foot 02/23 - MRI of the right foot with soft tissue swelling no osteomyelitis- with Ulceration and soft tissue swelling along the volar tissues adjacent to the first metatarsal-phalangeal joint region. - ESR 63/ CRP 14.4 - continue with broad spectrum IV antibiotics and follow the cultures - Podiatry ff - will consult Infectious disease specialty for recommendation -PT consult -acute kidney injury likely with underlying CKI - continue on IV fluid and monitor the renal function. - ff BMP- DM type 2- - per patient home regimen on lantus 90 unist HS and Novolog sliding scale + metformin 1 gm bid -state good hypoglycemic awareness -accucheck with sliding scael coverage - start on Levemer 20 untis hs while here and adjust - DC Metformin with SETH CAD- s/p CABG - start home meds - -DVT prophylaxis with subq Heparin.
[2018-02-23] MEDS: Fenofibrate 145 MG Tablet PO SCH (10:21)
[2018-02-23] MEDS: Lisinopril 20 MG Tablet PO SCH ×2 (10:21→21:52)
[2018-02-23] MEDS: Furosemide 20 MG Tablet PO SCH ×2 (10:21→19:44)
--- NOTE | 2018-02-23 11:09 | MR ---
cc: Candace Abraham DPM DATE: 02/23/2018 SURGEON: Candace Abraham DPM. DIRECTOR CLIENT: None. PREOPERATIVE DIAGNOSIS: Right foot infection. POSTOPERATIVE DIAGNOSIS: Right foot infection. PROCEDURE PERFORMED: Right foot incision and drainage. ANESTHESIA: General. HEMOSTASIS: None. ESTIMATED BLOOD LOSS: 20 mL. MATERIALS: 2-0 Prolene. INJECTABLES: 10 mL of 0.25% Marcaine plain infiltrated about the right foot. COMPLICATIONS: None. INDICATIONS FOR PROCEDURE: The patient is a 62-year-old male with a chronic submetatarsal 1 ulceration, noted increased edema and erythema to right foot. The patient proceeded to the emergency department at the urging of his scrip clerk, Dr. Isael Whitt. He was admitted. MRI was performed, which showed no marrow edema to signify evidence of osteomyelitis; however, there was purulent drainage upon compression of right foot and clinically there was necrotic tissue. Therefore, decision was made for incision and drainage. The patient understands all risks, complications, and benefits associated with the procedure and would like to proceed. PROCEDURE IN DETAIL: The patient was brought back to the operating room and placed on the operating table in supine position. General anesthesia was then induced. Right foot was prepped and draped in the usual sterile fashion. Attention was directed to the right foot where a full-thickness excisional debridement was performed to submetatarsal 1 ulceration with a 15 blade. All necrotic tissue was excised. A full-thickness excisional debridement was performed to subcutaneous tissue, tendon, muscle, and bone. Incision was then made to submetatarsal 1 along the flexor tendon. Hemostat was utilized for blunt dissection. Blunt dissection was performed. There was noted to be a pocket of purulence to the flexor tendon. Following this, copious irrigation was performed. All necrotic nonviable tissue was debrided. Copious irrigation was performed once again. There was noted to be no purulent drainage upon compression after debridement of tissue and copious irrigation. Then, 3-0 Prolene was utilized to loosely approximate the incision along flexor tendon plantarly. Wound VAC was then applied, black foam to the patient's submetatarsal 1 ulceration. It was noted to be functioning 125 mmHg. Then, 4 x 4's, cast padding, Terence were applied to the right foot. He is to remain nonweightbearing. Continue with IV antibiotics and we will await final culture results as there was soft tissue culture taken. Marcaine plain 0.25% was infiltrated about the right foot prior to dressings. Candace Abraham DPM JICarley/ts , 09:36 AM , 09:44 AM
[2018-02-23] MEDS: Sod Chloride 0.9% Inj 1,000 ML IV.CONT SCH (12:22)
--- NOTE | 2018-02-23 13:05 | ECG ---
Date Performed: 02/23/2018 Time Performed: 07:31:42 PTAGE: 62 years EKG: ATRIAL FLUTTER/TACHYCARDIA NONSPECIFIC T-WAVE ABNORMALITY ABNORMAL RHYTHM ECG PREVIOUS TRACING : 12/03/2016 09.38 DOCTOR: Dariela Mojica Interpretating Date/Time 02/23/2018 13:02:58
[2018-02-23] MEDS: Vancomycin Inj 1,750 MG in Sodium Chlor 0.9% Inj 500 ML IV.SIG SCH (15:16)
[2018-02-23] MEDS: Insulin Detemir Inj 1,000 UNIT/10 ML Vial SQ SCH (22:07)
[2018-02-24] MEDS: Sod Chloride 0.9% Inj 1,000 ML IV.CONT SCH ×3 (01:47→13:28)
[2018-02-24] MEDS: Piperacil/Tazo 3.375 GM Premix 50 ML IV.SIG SCH ×4 (04:52→23:01)
[2018-02-24] MEDS ORDERED: Loperamide 2 MG Capsule PO ONE (05:04)
[2018-02-24] MEDS: Furosemide 20 MG Tablet PO SCH ×2 (09:26→17:11)
[2018-02-24] MEDS: Insulin NovoLOG Aspart Correctional Sugar Inj SQ SCH ×4 (09:26→22:59)
[2018-02-24] MEDS: Fenofibrate 145 MG Tablet PO SCH (09:26)
[2018-02-24] MEDS: Lisinopril 20 MG Tablet PO SCH ×2 (09:26→20:43)
[2018-02-24] MEDS: Heparin - SQ 10,000 UNITS/ML Vial SQ SCH ×2 (09:27→20:43)
--- NOTE | 2018-02-24 10:22 | P.PN ---
Subjective Interval history: patient having some loose stools- c diff negative on testing per patient - he has been up and ambulated with a walker - no pain Physical Exam Vital signs: Vital Signs 02/23/18 10:49 02/23/18 16:00 02/23/18 20:00 Temperature 98.4 F 99.7 F H 99.3 F Pulse Rate 66 82 95 H Respiratory Rate 18 20 18 Blood Pressure 117/63 141/66 H 152/69 H Pulse Oximetry 95 96 92 L 02/24/18 00:00 02/24/18 04:00 02/24/18 07:58 Temperature 98.2 F 97.8 F 97.6 F Pulse Rate 89 81 82 Respiratory Rate 18 18 18 Blood Pressure 163/72 H 144/70 H 134/59 L Pulse Oximetry 94 L 94 L 95 Intake & Output 02/23/18 02/24/18 02/24/18 18:59 06:59 18:59 Intake Total 3797.5 / 3797.5 800 / 800 50 / 50 Output Total 1520 / 1520 951 / 951 Balance 2277.5 / 2277.5 -151 / -151 50 / 50 Weight 119.7 kg Intake: IV 2317.5 / 2317.5 800 / 800 50 / 50 LR 1000 mL Inj 1,000 ML @ 30 400 / 400 mls/hr IV.CONT .Q24H ONE Rx#: [id number] NS Inj 1,000 ML @ 100 mls/hr IV 1300 / 1300 700 / 700 .CONT .Q10H ANA CRISTINA Rx#:[id number] Zosyn 3.375 GM Premix 50 ML @ 100 / 100 100 / 100 50 / 50 100 mls/hr IV.SIG Q6H ANA CRISTINA Rx#: [id number] Vancomycin Inj 1,750 MG In NS 517.5 / 517.5 Inj 500 ML @ 250 mls/hr IV.SIG Q24H ANA CRISTINA Rx#:[id number] Oral 1080 / 1080 Anesthesia Amount 400 / 400 Output: Urine 1500 / 1500 951 / 951 Estimated Blood Loss 20 / 20 Wound Vac Amount 0 / 0 Right Lower Foot 0 / 0 Other: Mode Setting Right Lower Foot Continuous Continuous Date of Last Bowel Movement 02/22/18 02/24/18 02/24/18 # Bowel Movements 6 # Incontinent Bowel Movements 1 Narrative: GENERAL: This is a well-nourished, well-developed patient, in no apparent distress. SKIN: Sub 1 ulceration with associated erythema and edema HEAD: Atraumatic. EYES: Pupils equal round and reactive. ENT: Airway patent. NECK: Trachea midline. RESPIRATORY: Nonlabored breathing. MUSCULOSKELETAL:. Negative Homans sign bilaterally. NEUROLOGICAL: Awake and alert. Normal speech. Left foot- with post op dressing intact with VAC in place Results - Labs CBC & Chem 7: 02/22/18 05:30 02/24/18 05:22 Laboratory Results - last 24 hr 02/23/18 02/23/18 02/23/18 11:05 13:03 13:03 Sodium 141 Potassium 3.9 Chloride 100 Carbon Dioxide 31.4 Anion Gap 10 BUN 36 H Creatinine 4.09 H Estimated GFR 15 L POC Glucose 183 H Random Glucose 128 H Hemoglobin A1c 5.0 Calcium 9.0 Stl C.difficile DNA Amp St C. diff Tox Epid 027 02/23/18 02/23/18 02/23/18 16:05 21:51 Unknown Sodium Potassium Chloride Carbon Dioxide Anion Gap BUN Creatinine Estimated GFR POC Glucose 262 H 228 H Random Glucose Hemoglobin A1c Calcium Stl C.difficile DNA Amp Negative St C. diff Tox Epid 027 Negative 02/24/18 02/24/18 05:22 07:48 Sodium Potassium Chloride Carbon Dioxide Anion Gap BUN Creatinine 1.59 H Estimated GFR 44 L POC Glucose 171 H Random Glucose Hemoglobin A1c Calcium Stl C.difficile DNA Amp St C. diff Tox Epid 027 Microbiology 02/23/18 09:03 Abscess - Foot Fungal Smear - Final No fungal elements seen 02/23/18 09:03 Abscess - Foot Gram Stain - Final 02/21/18 12:15 Blood - Peripheral Aerobic Blood Culture - Preliminary No growth in 2 days 02/21/18 12:15 Blood - Peripheral Anaerobic Blood Culture - Preliminary No growth in 2 days 02/21/18 12:21 Blood - Peripheral Aerobic Blood Culture - Preliminary No growth in 2 days 02/21/18 12:21 Blood - Peripheral Anaerobic Blood Culture - Preliminary No growth in 2 days 02/21/18 12:39 Wound - Foot Gram Stain - Final 02/21/18 12:39 Wound - Foot Wound Culture - Final Group B beta Strep Assessment and Plan - Plan 62 years old male states recurrent right foot infection- ahd amputation of 2nd toe 11/2016 -placed on 7 days course of po antibotics x 2 in the past and patient states improved but recurs again good epripheral pulses on exam Right foot cellulitis- Recurrent - failed OP therapy S/P I and D with VAC application right foot 02/23- growing Grp B strep chronic plantar foot ulcers x 2 + one area of hemorrhagic bullae - does not appear infected - MRI of the right foot with soft tissue swelling no osteomyelitis- with Ulceration and soft tissue swelling along the volar tissues adjacent to the first metatarsal-phalangeal joint region. - ESR 63/ CRP 14.4 - continue with broad spectrum IV antibiotics - Vancomycin/Zosyn - Podiatry ff - ID service consulted - PT daily- patient has walker at home Acute kidney injury likely with underlying CKI- creatinine improved from 4.09- down to 1.6 - continue on IV fluid and monitor the renal function.- decrease rate - ff BMP- DM type 2- HgbA1c 5.0 - states his Last A1C was 12- 2 months ago . - per patient home regimen on lantus 90 unist HS and Novolog sliding scale + metformin 1 gm bid -state good hypoglycemic awareness -accucheck with sliding scael coverage - started on Levemer 20 untis hs while here and adjust- increase to 25 units hs - DC Metformin with SETH - will rechk A1C to confirm CAD- s/p CABG - continue home meds - DC planning- will d/w ID- re antibiotic regimen -DVT prophylaxis with subq Heparin.
--- NOTE | 2018-02-24 10:22 | P.CONID ---
History of Present Illness Service: ID Consult date: 02/24/18 Requesting Physician: Ino Kiran Reason for Consult: right foot infection S/P I and D with VAC application- 02/23 Primary Care Provider: Shiraz Kong Chief Complaint: right foot infection History of Present Illness: 62-year-old diabetic male with history of R 2 nd toe amputiaion a while ago Pt was sent to the ER by his it risk and assurance manager, Dr. Rosario Whitt for evaluationof right foot infection. Pt has a chronic wound on the bottom of his foot for about a year and a half and he noticed increased swelling and redness of the right foot increased and he saw a blood blister. He denies any nausea vomiting fevers or chills. On presentation low grade fever up to 99.7, leukocytosis of 14 K MRI foot with no evidence of osteomyelitis. S/p Right foot incision and drainage yday by Dr Abraham Pt was started on Piperacillin/Tazobactam, Vancomycin Culture is positive for GBStrep, op clx is P Review of Systems All other systems reviewed negative except as stated in HPI PMFSH - History History Provided By: Patient - Medical History Medical History: Medical History (Last Reviewed 02/24/18 @ 11:13 by Marisel Cheema MD) Diabetes HTN (hypertension) High cholesterol - Surgical History Surgical History: Surgical History (Last Reviewed 02/24/18 @ 11:13 by Marisel Cheema MD) Hx of CABG - Family History Family History: Family History (Last Reviewed 02/24/18 @ 11:13 by Marisel Cehema MD) Other Diabetes - Social History I have reviewed the patient's Social History: Yes - Tobacco History Second Hand Smoke Exposure: No Smoking Status: Never smoker - Alcohol History How Often Do You Have a Drink Containing Alcohol: Never - Substance Use History Substance History: No History of Abuse - Immunization History Tetanus Immunization: <5 Years Hx Influenza Vaccine This Season: Yes Medications and Allergies Active Medications: Active Medications Acetaminophen (Tylenol) 650 mg PO Q4H PRN PRN Reason: fever/pain Cetirizine HCl (Zyrtec) 10 mg PO Q24H ANA CRISTINA Last Admin: 02/23/18 21:52 Dose: 10 mg Dextrose (D50w Vial) 50 ml IV.PUSH UNSCH PRN PRN Reason: PER HYPOGLYCEMIA PROTOCOL Fenofibrate (Tricor) 145 mg PO DAILY [facility] Last Admin: 02/24/18 09:26 Dose: 145 mg Fluticasone Propionate (Flonase Nasal [place]) 1 spray EACH NARE Q24H [facility] Last Admin: 02/23/18 21:53 Dose: 1 spray Furosemide (Lasix) 20 mg PO BID@0900,1800 [facility] Last Admin: 02/24/18 09:26 Dose: 20 mg Glucagon (Glucagon Inj) 1 mg OTHER PRN PRN PRN Reason: for Hypoglycemia Protocol Heparin Sodium (Porcine) (Heparin Inj) 5,000 units SQ Q12HR [facility] Last Admin: 02/24/18 09:27 Dose: 5,000 units Sodium Chloride (Ns Inj) 1,000 mls @ 100 mls/hr IV.CONT .Q10H [facility] Last Admin: 02/24/18 04:42 Dose: Not Given Piperacillin/Tazobactam/Dextrose (Zosyn 3.375 Gm Premix) 50 mls @ 100 mls/hr IV.SIG Q6H [facility] Last Infusion: 02/24/18 09:59 Dose: Infused Vancomycin HCl 1,750 mg/ (Sodium Chloride) 517.5 mls @ 250 mls/hr IV.SIG Q24H [facility] Last Infusion: 02/23/18 17:21 Dose: Infused Insulin Aspart (Novolog Insulin Correctional Sugar Inj) 0 unit SQ ACHS [facility]; Protocol Last Admin: 02/24/18 09:26 Dose: 1 unit Insulin Detemir (Levemir Inj) 20 unit SQ HS [facility] Last Admin: 02/23/18 22:07 Dose: 20 unit Lisinopril (Prinivil) 20 mg PO BID [facility] Last Admin: 02/24/18 09:26 Dose: 20 mg Miscellaneous Information ([facility] Ordered Lab Info) 0 each OTHER ONCE ONE Stop: 02/24/18 14:46 Pharmacy Profile Note (Vancomycin Consult Pharmacy) 1 each OTHER UNSCH PRN PRN Reason: Pharmacy to dose Allergies Allergy/AdvReac Type Severity Reaction Status Date / Time No Known Allergies Allergy Verified 02/21/18 11:40 Home Medications Medication Instructions Recorded Confirmed Type acetaminophen [Tylenol] 650 mg PO Q4H PRN 02/22/18 02/22/18 History aspirin 81 mg PO DAILY 02/22/18 02/22/18 History fenofibrate nanocrystallized 145 mg PO DAILY 02/22/18 02/22/18 History [Tricor] fexofenadine [So Allergy] 180 mg PO Q6HR 02/22/18 02/22/18 History furosemide [Lasix] 20 mg PO BID 02/22/18 02/22/18 History insulin aspart U-100 [Novolog 1 sliding scale dose SUBCUT UD 02/22/18 02/22/18 History U-100 Insulin aspart] insulin glargine [Lantus U-100 90 units HS 02/22/18 02/22/18 History Insulin] lisinopril 20 mg PO BID 02/22/18 02/22/18 History metformin 1,000 mg PO BID 02/22/18 02/22/18 History metoprolol tartrate 25 mg PO BID 02/22/18 02/22/18 History simvastatin 80 mg PO QPM 02/22/18 02/22/18 History sulfamethoxazole-trimethoprim 02/22/18 History Exam Vital signs: Vital Signs 02/23/18 10:49 02/23/18 16:00 02/23/18 20:00 Temperature 98.4 F 99.7 F H 99.3 F Pulse Rate 66 82 95 H Respiratory Rate 18 20 18 Blood Pressure 117/63 141/66 H 152/69 H Pulse Oximetry 95 96 92 L 02/24/18 00:00 02/24/18 04:00 02/24/18 07:58 Temperature 98.2 F 97.8 F 97.6 F Pulse Rate 89 81 82 Respiratory Rate 18 18 18 Blood Pressure 163/72 H 144/70 H 134/59 L Pulse Oximetry 94 L 94 L 95 Intake & Output 02/23/18 02/24/18 02/24/18 18:59 06:59 18:59 Intake Total 3797.5 / 3797.5 800 / 800 50 / 50 Output Total 1520 / 1520 951 / 951 Balance 2277.5 / 2277.5 -151 / -151 50 / 50 Weight 119.7 kg Intake: IV 2317.5 / 2317.5 800 / 800 50 / 50 LR 1000 mL Inj 1,000 ML @ 30 400 / 400 mls/hr IV.CONT .Q24H ONE Rx#: [id number] NS Inj 1,000 ML @ 100 mls/hr IV 1300 / 1300 700 / 700 .CONT .Q10H ANA CRISTINA Rx#:[id number] Zosyn 3.375 GM Premix 50 ML @ 100 / 100 100 / 100 50 / 50 100 mls/hr IV.SIG Q6H ANA CRISTINA Rx#: [id number] Vancomycin Inj 1,750 MG In NS 517.5 / 517.5 Inj 500 ML @ 250 mls/hr IV.SIG Q24H ANA CRISTINA Rx#:[id number] Oral 1080 / 1080 Anesthesia Amount 400 / 400 Output: Urine 1500 / 1500 951 / 951 Estimated Blood Loss 20 / 20 Wound Vac Amount 0 / 0 Right Lower Foot 0 / 0 Other: Mode Setting Right Lower Foot Continuous Continuous Date of Last Bowel Movement 02/22/18 02/24/18 02/24/18 # Bowel Movements 6 # Incontinent Bowel Movements 1 - Constitutional no acute distress, obese - Routine HEENT Exam Head: Present: normocephalic, atraumatic Eye: Present: EOMI, PERRL ENT: Present: mucous membranes moist, oropharynx clear - Routine Neck Exam Present: supple. Absent: JVD - Routine Respiratory Exam Present: decreased breath sounds, CTA bilaterally. Absent: accessory muscle use - Routine Cardiovascular Exam Present: RRR, S1, S2. Absent: murmur, gallop, rubs - Routine Abdominal Exam Present: soft, normoactive bowel sounds. Absent: tenderness, distended, organomegaly, mass - Routine Extremities Exam Present: full ROM. Absent: cyanosis, clubbing, edema Comments: R foot with VAC in place, surgical dressing small amount of erythema noted above the proximal end of the dressing no ascending lymphangitis, no palpable lymphadenopathy - Routine Skin Exam Present: intact, dry, warm. Absent: rash - Routine Neurological Exam Present: alert, oriented X3, CN II-XII intact, moving all extremities, vision grossly intact, hearing grossly intact, normal speech - Routine Psychiatric Exam Present: normal affect, normal thought process, cooperative Results - Labs CBC & Chem 7: 02/22/18 05:30 02/24/18 05:22 Labs: Laboratory Results - last 24 hr 02/23/18 02/23/18 02/23/18 11:05 13:03 13:03 Sodium 141 Potassium 3.9 Chloride 100 Carbon Dioxide 31.4 Anion Gap 10 BUN 36 H Creatinine 4.09 H Estimated GFR 15 L POC Glucose 183 H Random Glucose 128 H Hemoglobin A1c 5.0 Calcium 9.0 Stl C.difficile DNA Amp St C. diff Tox Epid 027 02/23/18 02/23/18 02/23/18 16:05 21:51 Unknown Sodium Potassium Chloride Carbon Dioxide Anion Gap BUN Creatinine Estimated GFR POC Glucose 262 H 228 H Random Glucose Hemoglobin A1c Calcium Stl C.difficile DNA Amp Negative St C. diff Tox Epid 027 Negative 02/24/18 02/24/18 05:22 07:48 Sodium Potassium Chloride Carbon Dioxide Anion Gap BUN Creatinine 1.59 H Estimated GFR 44 L POC Glucose 171 H Random Glucose Hemoglobin A1c Calcium Stl C.difficile DNA Amp St C. diff Tox Epid 027 - Imaging Foot MRI 02/21/18 11:54 CONCLUSION: 1. Ulceration and soft tissue swelling along the volar tissues adjacent to the first metatarsal-phalangeal joint region. 2. Normal marrow signal with no evidence of osteomyelitis. 3. 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 Foot X-Ray 02/21/18 11:54 CONCLUSION: 1. Soft tissue swelling and ulceration along the volar aspect of the metatarsal head region. 2. No underlying bony abnormality. 3. Status post amputation of the second digit. Assessment and Plan - Plan R foot DFI, GBS sp I+D, op report was reviewed No e/o osteo on operative report or MR cont paul dc vancomycin fu op clx untill final rec's per final culture report, anticipate some IV course as o/p
--- NOTE | 2018-02-24 11:52 | P.PNPOD ---
Subjective Interval history: Seen bedside resting comfortably. Reports no pain to right foot. Does report pain to right calf. Denies any nausea vomiting fevers or chills Physical Exam Vital signs: Vital Signs 02/23/18 16:00 02/23/18 20:00 02/24/18 00:00 Temperature 99.7 F H 99.3 F 98.2 F Pulse Rate 82 95 H 89 Respiratory Rate 20 18 18 Blood Pressure 141/66 H 152/69 H 163/72 H Pulse Oximetry 96 92 L 94 L 02/24/18 04:00 02/24/18 07:58 Temperature 97.8 F 97.6 F Pulse Rate 81 82 Respiratory Rate 18 18 Blood Pressure 144/70 H 134/59 L Pulse Oximetry 94 L 95 Intake & Output 02/23/18 02/24/18 02/24/18 18:59 06:59 18:59 Intake Total 3797.5 / 3797.5 800 / 800 50 / 50 Output Total 1520 / 1520 951 / 951 Balance 2277.5 / 2277.5 -151 / -151 50 / 50 Weight 119.7 kg Intake: IV 2317.5 / 2317.5 800 / 800 50 / 50 LR 1000 mL Inj 1,000 ML @ 30 400 / 400 mls/hr IV.CONT .Q24H ONE Rx#: [id number] NS Inj 1,000 ML @ 100 mls/hr IV 1300 / 1300 700 / 700 .CONT .Q10H ANA CRISTINA Rx#:[id number] Zosyn 3.375 GM Premix 50 ML @ 100 / 100 100 / 100 50 / 50 100 mls/hr IV.SIG Q6H ANA CRISTINA Rx#: [id number] Vancomycin Inj 1,750 MG In NS 517.5 / 517.5 Inj 500 ML @ 250 mls/hr IV.SIG Q24H ANA CRISTINA Rx#:[id number] Oral 1080 / 1080 Anesthesia Amount 400 / 400 Output: Urine 1500 / 1500 951 / 951 Estimated Blood Loss 20 / 20 Wound Vac Amount 0 / 0 Right Lower Foot 0 / 0 Other: Mode Setting Right Lower Foot Continuous Continuous Date of Last Bowel Movement 02/22/18 02/24/18 02/24/18 # Bowel Movements 6 # Incontinent Bowel Movements 1 Narrative: Wound VAC functioning at 125 mm per mercury. Erythema and edema resolving in receding from right foot. Mild edema still noted to medial aspect of the right foot. Medications and Allergies Active Medications: Active Medications Acetaminophen (Tylenol) 650 mg PO Q4H PRN PRN Reason: fever/pain Cetirizine HCl (Zyrtec) 10 mg PO Q24H [facility] Last Admin: 02/23/18 21:52 Dose: 10 mg Dextrose (D50w Vial) 50 ml IV.PUSH UNSCH PRN PRN Reason: PER HYPOGLYCEMIA PROTOCOL Fenofibrate (Tricor) 145 mg PO DAILY [facility] Last Admin: 02/24/18 09:26 Dose: 145 mg Fluticasone Propionate (Flonase Nasal [place]) 1 spray EACH NARE Q24H [facility] Last Admin: 02/23/18 21:53 Dose: 1 spray Furosemide (Lasix) 20 mg PO BID@0900,1800 [facility] Last Admin: 02/24/18 09:26 Dose: 20 mg Glucagon (Glucagon Inj) 1 mg OTHER PRN PRN PRN Reason: for Hypoglycemia Protocol Heparin Sodium (Porcine) (Heparin Inj) 5,000 units SQ Q12HR [facility] Last Admin: 02/24/18 09:27 Dose: 5,000 units Sodium Chloride (Ns Inj) 1,000 mls @ 60 mls/hr IV.CONT .[id number] [facility] Last Infusion: 02/24/18 10:24 Dose: 100 mls/hr Piperacillin/Tazobactam/Dextrose (Zosyn 3.375 Gm Premix) 50 mls @ 100 mls/hr IV.SIG Q6H [facility] Last Infusion: 02/24/18 09:59 Dose: Infused Insulin Aspart (Novolog Insulin Correctional Sugar Inj) 0 unit SQ [facility]; Protocol Last Admin: 02/24/18 09:26 Dose: 1 unit Insulin Detemir (Levemir Inj) 25 unit SQ [facility] Lisinopril (Prinivil) 20 mg PO BID [facility] Last Admin: 02/24/18 09:26 Dose: 20 mg Miscellaneous Information ([facility] Ordered Lab Info) 0 each OTHER ONCE ONE Stop: 02/24/18 14:46 Allergies Allergy/AdvReac Type Severity Reaction Status Date / Time No Known Allergies Allergy Verified 02/21/18 11:40 Home Medications Medication Instructions Recorded Confirmed Type acetaminophen [Tylenol] 650 mg PO Q4H PRN 02/22/18 02/22/18 History aspirin 81 mg PO DAILY 02/22/18 02/22/18 History fenofibrate nanocrystallized 145 mg PO DAILY 02/22/18 02/22/18 History [Tricor] fexofenadine [So Allergy] 180 mg PO Q6HR 02/22/18 02/22/18 History furosemide [Lasix] 20 mg PO BID 02/22/18 02/22/18 History insulin aspart U-100 [Novolog 1 sliding scale dose SUBCUT UD 02/22/18 02/22/18 History U-100 Insulin aspart] insulin glargine [Lantus U-100 90 units HS 02/22/18 02/22/18 History Insulin] lisinopril 20 mg PO BID 02/22/18 02/22/18 History metformin 1,000 mg PO BID 02/22/18 02/22/18 History metoprolol tartrate 25 mg PO BID 02/22/18 02/22/18 History simvastatin 80 mg PO QPM 02/22/18 02/22/18 History sulfamethoxazole-trimethoprim 02/22/18 History Results - Labs CBC & Chem 7: 02/22/18 05:30 02/24/18 05:22 Laboratory Results - last 24 hr 02/23/18 02/23/18 02/23/18 13:03 13:03 16:05 Sodium 141 Potassium 3.9 Chloride 100 Carbon Dioxide 31.4 Anion Gap 10 BUN 36 H Creatinine 4.09 H Estimated GFR 15 L POC Glucose 262 H Random Glucose 128 H Hemoglobin A1c 5.0 Calcium 9.0 Stl C.difficile DNA Amp St C. diff Tox Epid 027 02/23/18 02/23/18 02/24/18 21:51 Unknown 05:22 Sodium Potassium Chloride Carbon Dioxide Anion Gap BUN Creatinine 1.59 H Estimated GFR 44 L POC Glucose 228 H Random Glucose Hemoglobin A1c Calcium Stl C.difficile DNA Amp Negative St C. diff Tox Epid 027 Negative 02/24/18 02/24/18 07:48 11:22 Sodium Potassium Chloride Carbon Dioxide Anion Gap BUN Creatinine Estimated GFR POC Glucose 171 H 234 H Random Glucose Hemoglobin A1c Calcium Stl C.difficile DNA Amp St C. diff Tox Epid 027 Microbiology 02/21/18 12:15 Blood - Peripheral Aerobic Blood Culture - Preliminary No growth in 3 days 02/21/18 12:15 Blood - Peripheral Anaerobic Blood Culture - Preliminary No growth in 3 days 02/21/18 12:21 Blood - Peripheral Aerobic Blood Culture - Preliminary No growth in 3 days 02/21/18 12:21 Blood - Peripheral Anaerobic Blood Culture - Preliminary No growth in 3 days 02/23/18 09:03 Abscess - Foot Fungal Smear - Final No fungal elements seen 02/23/18 09:03 Abscess - Foot Gram Stain - Final 02/21/18 12:39 Wound - Foot Gram Stain - Final 02/21/18 12:39 Wound - Foot Wound Culture - Final Group B beta Strep Assessment and Plan - Plan 62 year old with right foot infection Wound care nurses to change wound VAC 3 times weekly, Sunday Awaiting final OR cultures and ID recommendations Nonweightbearing to right lower extremity Will sign out care to Dr. Hess Physical therapy to evaluate for possible rehab placement secondary to patient' s weightbearing status
--- NOTE | 2018-02-24 13:17 | US ---
EXAM DATE: 02/24/2018 12:00 AM EDT AGE/SEX: 62 years / Male INDICATIONS: Bilateral leg redness. CLINICAL DATA: This is the patient's initial encounter. Patient reports that signs and symptoms have been present for 1 day and indicates a pain score of 0/10. MEDICAL/SURGICAL HISTORY: Diabetes. Hypercholesterolemia. Hypertension. CABG. COMPARISON: No prior exams available for comparison. TECHNIQUE: Venous ultrasound of both lower extremities was performed from the inguinal ligament to t he proximal calf. Real-time, color Doppler and spectral tracing, compression and augmentation techni ques were used. FINDINGS: Right Leg: Normal compression of the deep venous system from the inguinal region to the proximal anthony f. No echogenic clot is seen. Normal response of the venous system to augmentation and respiration. Left Leg: Normal compression of the deep venous system from the inguinal region to the proximal calf . No echogenic clot is seen. Normal response of the venous system to augmentation and respiration. Other: None. CONCLUSION: 1. No evidence of DVT. Electronically signed by: Erwin Maria MD 02/24/2018 1:16 PM EDT
[2018-02-24] MEDS ORDERED: Pharmacy Ordered Lab Info OTHER ONE (14:45)
[2018-02-24] MEDS: Insulin Detemir Inj 1,000 UNIT/10 ML Vial SQ SCH (22:59)
[2018-02-25] MEDS: Piperacil/Tazo 3.375 GM Premix 50 ML IV.SIG SCH ×4 (03:07→21:49)
[2018-02-25] MEDS: Fenofibrate 145 MG Tablet PO SCH (08:16)
[2018-02-25] MEDS: Heparin - SQ 10,000 UNITS/ML Vial SQ SCH ×2 (08:16→21:51)
[2018-02-25] MEDS: Insulin NovoLOG Aspart Correctional Sugar Inj SQ SCH ×4 (08:17→21:49)
[2018-02-25] MEDS: Furosemide 20 MG Tablet PO SCH ×2 (08:20→17:00)
[2018-02-25] MEDS: Lisinopril 20 MG Tablet PO SCH ×2 (08:25→21:51)
--- NOTE | 2018-02-25 08:54 | P.PN ---
Subjective Interval history: awake and alert, up on chair ambulating as tolerated. no diarrhea no fever no pain complains Physical Exam Vital signs: Vital Signs 02/24/18 12:00 02/24/18 16:00 02/24/18 20:00 Temperature 98.2 F 97.4 F L 98.2 F Pulse Rate 76 79 70 Respiratory Rate 18 18 18 Blood Pressure 131/59 L 162/70 H 141/67 H Pulse Oximetry 94 L 95 97 02/25/18 00:00 02/25/18 04:00 Temperature 98.3 F 98 F Pulse Rate 87 69 Respiratory Rate 18 18 Blood Pressure 146/71 H 136/78 Pulse Oximetry 94 L 92 L Intake & Output 02/24/18 02/25/18 02/25/18 18:59 06:59 18:59 Intake Total 820 / 820 100 / 100 Output Total 600 / 600 950 / 950 Balance 220 / 220 -850 / -850 Weight 119.3 kg Intake: IV 100 / 100 100 / 100 Zosyn 3.375 GM Premix 50 ML @ 100 / 100 100 / 100 100 mls/hr IV.SIG Q6H [facility] Rx#: [id number] Oral 720 / 720 Output: Urine 600 / 600 950 / 950 Other: Mode Setting Right Lower Foot Continuous Continuous Continuous Date of Last Bowel Movement 02/24/18 02/24/18 # Bowel Movements 1 Narrative: GENERAL: in no apparent distress. HEAD: Atraumatic. EYES: Pupils equal round and reactive. ENT: Airway patent. NECK: Trachea midline. RESPIRATORY: Nonlabored breathing. MUSCULOSKELETAL:. Negative Homans sign bilaterally. NEUROLOGICAL: Awake and alert. Normal speech. Right foot- with post op dressing intact with VAC in place right lower 3rd leg- small area of erythema- no induration- medial aspect of the calf, no calf tenderenss, good peripheral pulses Results - Labs CBC & Chem 7: 02/22/18 05:30 02/24/18 05:22 Laboratory Results - last 24 hr 02/24/18 02/24/18 02/24/18 11:22 16:07 20:43 POC Glucose 234 H 284 H 324 H 02/25/18 07:10 POC Glucose 180 H Microbiology 02/23/18 09:03 Abscess - Foot Gram Stain - Final 02/23/18 09:03 Abscess - Foot Wound Culture - Preliminary Group B beta Strep 02/21/18 12:15 Blood - Peripheral Aerobic Blood Culture - Preliminary No growth in 3 days 02/21/18 12:15 Blood - Peripheral Anaerobic Blood Culture - Preliminary No growth in 3 days 02/21/18 12:21 Blood - Peripheral Aerobic Blood Culture - Preliminary No growth in 3 days 02/21/18 12:21 Blood - Peripheral Anaerobic Blood Culture - Preliminary No growth in 3 days 02/23/18 09:03 Abscess - Foot Fungal Smear - Final No fungal elements seen - Imaging Impressions Venous Doppler Study 02/24/18 00:00 CONCLUSION: 1. No evidence of DVT. 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 - ESR 63/ CRP 14.4 - Podiatry ff - ID service ff- on zosyn. Vanco was DC 02/24 - PT daily- patient has walker at home - Doppler US- negative for DVT Acute kidney injury likely with underlying CKI- creatinine improved from 4.09- down to 1.6 - continue on IV fluid and monitor the renal function.- - ff BMP- recheck today DM type 2- HgbA1c 5.0 - states his Last A1C was 12- 2 months ago . - per patient home regimen on lantus 90 unist HS and Novolog sliding scale + metformin 1 gm bid -state good hypoglycemic awareness -accucheck with sliding scael coverage - started on Levemer 20 untis hs while here and adjust- increase to 25 units hs - DC Metformin with SETH - will rechk A1C to confirm- pending CAD- s/p CABG - continue home meds - DC planning- will d/w ID- re antibiotic regimen -DVT prophylaxis with subq Heparin.
[2018-02-25 09:27] LABS: Baso % (Auto) 0.7 % (0.0-2.0); Eos # (Auto) 0.4 th/mm3 (0.0-0.4); Eos % (Auto) 5.4 % (0.0-4.0); Hematocrit 36.2 % (39.0-51.0); Hemoglobin 12.1 gm/dL (13.0-17.0); Lymph # (Auto) 0.8 th/mm3 (1.0-4.8); Lymph % (Auto) 10.6 % (9.0-44.0); Mean Corpuscular HGB Conc 33.5 % (32.0-36.0); Mean Corpuscular Hemoglobin 29.6 pg (27.0-34.0); Mean Corpuscular Volume 88.3 fL (80.0-100.0); Mono # (Auto) 0.5 th/mm3 (0.0-0.9); Mono % (Auto) 6.9 % (0.0-8.0); Neut # (Auto) 5.5 th/mm3 (1.8-7.7); Neut % (Auto) 76.4 % (16.0-70.0); Platelet Count 324 th/mm3 (150-450); Red Cell Distribution Width 13.9 % (11.6-17.2); White Blood Count 7.3 th/mm3 (4.0-11.0)
[2018-02-25] MEDS: Sod Chloride 0.9% Inj 1,000 ML IV.CONT SCH ×2 (09:41→22:55)
[2018-02-25 10:01] LABS: Calcium 8.9 mg/dL (8.5-10.1); Carbon Dioxide 25.5 meq/L (21.0-32.0); Potassium 4.3 meq/L (3.5-5.1)
--- NOTE | 2018-02-25 13:08 | P.PNADD ---
Addendum to Inpatient Note Additional information: Seen today around 1100 full note to follow
--- NOTE | 2018-02-25 14:05 | P.PNWCN ---
Wound Care Nurse Consult Description: Wound consult ordered by for wound vac management. Communicated with: Mikey MUNROE, Recommendation: 1. Cleanse right foot post I&D with normal saline pat dry. 2. Apply Puracol AG to plantar ulcer wound base, Apply Maxorb AG cut to fit wound base to suture line and gently pack opening with Maxorb AG cut into thin strip. 3. Apply thin even layer of Calazime cream to macerated periwound for moisture protection. 4. Cover with Optifoam basic secure with Kerlix/paper tape. 5. Change dressing every other day or as needed for exudate management.Sign and date all dressings. 6. May change dressing frequency to Q 7 days when scant exudate noted. Additional information: Patient was seen today by repairer typewriter for wound vac management of right foot.Patient alert and oriented x4 sitting up in recliner with bilateral lower extremities elevated.Denies any acute discomfort.Wound vac dressing/sponge removed from plantar R foot with out difficulty.Patient noted to have 3 intact sutures with maceration noted to periwound.Patient has 6.4cm x4.3cm superficial skin loss wound to R medial dorsal/plantar foot Wound base is moist white/pink tissue with open area measuring 0.3cm x 0.3cm x1.1cm in middle of wound base with suspected DTI lateral to opening..3 suture intact but moist.Ulceration noted to medial plantar measuring 2.0cm x1.6cm x0.3cm wound base is 100% moist red non granular tissue.Scant sanguinous exudate noted with out odor.Wounds cleansed with normal saline pat dry .Per wound vac recommendations patient does not meet wound vac criteria.Calazime cream applied to macerated periwound.Maxorb AG cut to fit wound base/cavity applied and covered with Optifoam basic, secured with Kerlix/paper tape/sock.Dressing signed and dated patient tolerated wound care well. Wound/Pressure Injury - Patient Status Premedicated for Pain Prior to Dressing Change: No - Wound Right foot Wound Assessment: Ongoing Wound Type: Abscess Is This a Chronic Wound: No Requested from Provider a Wound Care Consult: No (Roderick MUNROE,[facility] seen 02/25) Length (cm): 6.4 Width (cm): 4.3 Depth (cm): 0.3 Wound Bed Appearance: Peeling Skin, Red, White Wound Bed Appearance: moist pink/white tissue Surrounding Tissue Appearance: Erythema Surrounding Tissue Temperature: Cool Drainage Description: Sanguinous Drainage Amount: Scant Drainage Odor: No Odor Dressing Status: Changed Cleansing Solution: Saline Wound Packing Type: Alginate, Collagen Primary Dressing: optifoam basic Cover Dressing: Gauze Roll/Wrap Wound Dressing Change Date: 02/25/18
[2018-02-25 16:24] LABS: Hemoglobin A1c 12.2 % (4.3-6.0)
--- NOTE | 2018-02-25 16:52 | P.PNID ---
Subjective Remarks: pt is afebrile tolerates abx OK no new co Antibiotics: zosyn Allergies/Adverse Reactions: Allergies No Known Allergies Allergy (Verified 02/21/18 11:40) Objective Vital Signs 02/24/18 16:00 02/24/18 20:00 02/25/18 00:00 Temperature 97.4 F L 98.2 F 98.3 F Pulse Rate 79 70 87 Respiratory Rate 18 18 18 Blood Pressure 162/70 H 141/67 H 146/71 H Pulse Oximetry 95 97 94 L 02/25/18 04:00 02/25/18 08:00 02/25/18 12:00 Temperature 98 F 97.9 F 98.2 F Pulse Rate 69 77 67 Respiratory Rate 18 20 20 Blood Pressure 136/78 131/68 147/69 H Pulse Oximetry 92 L 96 98 Intake & Output 02/24/18 02/25/18 02/25/18 18:59 06:59 18:59 Intake Total 820 / 820 100 / 100 670 / 670 Output Total 600 / 600 950 / 950 4 / 4 Balance 220 / 220 -850 / -850 666 / 666 Weight 119.3 kg Intake: IV 100 / 100 100 / 100 50 / 50 Zosyn 3.375 GM Premix 50 ML @ 100 / 100 100 / 100 50 / 50 100 mls/hr IV.SIG Q6H [facility] Rx#: [id number] Oral 720 / 720 620 / 620 Output: Urine 600 / 600 950 / 950 3 / 3 Stool 1 / 1 Other: Mode Setting Right Lower Foot Continuous Continuous Continuous Date of Last Bowel Movement 02/24/18 02/24/18 02/25/18 # Bowel Movements 1 02/25/18 14:32 Clean Catch Urine Urine Culture - Pending 02/23/18 09:03 Abscess - Foot Acid Fast Bacilli Smear - Final No acid fast bacilli seen 02/23/18 09:03 Abscess - Foot Mycobacterial Culture - Pending 02/25/18 12:30 Wound - Foot Gram Stain - Pending 02/25/18 12:30 Wound - Foot Wound Culture - Pending 02/23/18 09:03 Abscess - Foot Gram Stain - Final 02/23/18 09:03 Abscess - Foot Wound Culture - Final Group B beta Strep 02/21/18 12:15 Blood - Peripheral Aerobic Blood Culture - Preliminary No growth in 4 days 02/21/18 12:15 Blood - Peripheral Anaerobic Blood Culture - Preliminary No growth in 4 days 02/21/18 12:21 Blood - Peripheral Aerobic Blood Culture - Preliminary No growth in 4 days 02/21/18 12:21 Blood - Peripheral Anaerobic Blood Culture - Preliminary No growth in 4 days 02/23/18 09:03 Abscess - Foot Fungal Smear - Final No fungal elements seen 02/23/18 09:03 Abscess - Foot Fungal Culture - Pending 02/21/18 12:39 Wound - Foot Gram Stain - Final 02/21/18 12:39 Wound - Foot Wound Culture - Final Group B beta Strep Lab - Hematology Results 02/25/18 08:57 WBC 7.3 RBC 4.10 L Hgb 12.1 L Hct 36.2 L MCV 88.3 MCH 29.6 MCHC 33.5 RDW 13.9 Plt Count 324 MPV 8.0 Neut % (Auto) 76.4 H Lymph % (Auto) 10.6 [place] % (Auto) 6.9 Eos % (Auto) 5.4 H Baso % (Auto) 0.7 Neut # (Auto) 5.5 Lymph # (Auto) 0.8 L [place] # (Auto) 0.5 Eos # (Auto) 0.4 Baso # (Auto) 0.0 WBC Differential . Differential Comment Auto diff final Lab - Chemistry Results 02/23/18 02/23/18 02/24/18 16:05 21:51 05:22 Sodium Potassium Chloride Carbon Dioxide Anion Gap BUN Creatinine 1.59 H Estimated GFR 44 L POC Glucose 262 H 228 H Random Glucose Calcium 02/24/18 02/24/18 02/24/18 07:48 11:22 16:07 Sodium Potassium Chloride Carbon Dioxide Anion Gap BUN Creatinine Estimated GFR POC Glucose 171 H 234 H 284 H Random Glucose Calcium 02/24/18 02/25/18 02/25/18 20:43 07:10 08:57 Sodium 138 Potassium 4.3 Chloride 101 Carbon Dioxide 25.5 Anion Gap 12 BUN 12 Creatinine 1.49 H Estimated GFR 48 L POC Glucose 324 H 180 H Random Glucose 178 H Calcium 8.9 02/25/18 11:21 Sodium Potassium Chloride Carbon Dioxide Anion Gap BUN Creatinine Estimated GFR POC Glucose 328 H Random Glucose Calcium Imaging: ITS Impressions Foot MRI 02/21/18 11:54 CONCLUSION: 1. Ulceration and soft tissue swelling along the volar tissues adjacent to the first metatarsal-phalangeal joint region. 2. Normal marrow signal with no evidence of osteomyelitis. 3. 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 Foot X-Ray 02/21/18 11:54 CONCLUSION: 1. Soft tissue swelling and ulceration along the volar aspect of the metatarsal head region. 2. No underlying bony abnormality. 3. Status post amputation of the second digit. Venous Doppler Study 02/24/18 00:00 CONCLUSION: 1. No evidence of DVT. Physical Exam: GENERAL: NAD SKIN: Warm and dry. no rash EYES: Pupils equal and round. No scleral icterus. No injection or drainage. ENT: No nasal bleeding or discharge. Mucous membranes pink and moist. CARDIOVASCULAR: Regular rate and rhythm. No murmurs RESPIRATORY: No accessory muscle use. Clear to auscultation. Breath sounds equal bilaterally. GASTROINTESTINAL: Abdomen soft, non-tender, nondistended. Hepatic and splenic margins not palpable. MUSCULOSKELETAL: Extremities without clubbing, cyanosis, or edema. R foot with significant erythema surrounding 1st MT joint + some dehiscence of incision + some dusky tirrue present in wound bed no overt purulence NEUROLOGICAL: Awake and alert. No obvious cranial nerve deficits. Motor grossly within normal limits. Five out of 5 muscle strength in the arms and legs. Normal speech. PSYCHIATRIC: Appropriate mood and affect; insight and judgment normal. Assessment and Plan - Plan R foot DFI, GBS sp I+D, op report was reviewed No e/o osteo on operative report or MR change zosyn to Unasyn anticipate prolonged (6 weeks) abx course
[2018-02-25] MEDS: Insulin Detemir Inj 1,000 UNIT/10 ML Vial SQ SCH (21:50)
[2018-02-26] MEDS: Piperacil/Tazo 3.375 GM Premix 50 ML IV.SIG SCH ×2 (03:53→11:06)
[2018-02-26] MEDS: Fenofibrate 145 MG Tablet PO SCH (08:43)
[2018-02-26] MEDS: Heparin - SQ 10,000 UNITS/ML Vial SQ SCH ×2 (08:43→21:04)
[2018-02-26] MEDS: Lisinopril 20 MG Tablet PO SCH ×2 (08:43→21:04)
[2018-02-26] MEDS: Furosemide 20 MG Tablet PO SCH ×2 (09:00→19:35)
--- NOTE | 2018-02-26 09:08 | P.PN ---
Subjective Interval history: awake and alert afebrile d/w him - recommendation of IV antibiotics for 6 weeks patient seem reluctant Physical Exam Vital signs: Vital Signs 02/25/18 12:00 02/25/18 16:00 02/25/18 20:00 Temperature 98.2 F 97.8 F 97.9 F Pulse Rate 67 67 70 Respiratory Rate 20 20 18 Blood Pressure 147/69 H 132/64 156/70 H Pulse Oximetry 98 95 96 02/26/18 00:00 02/26/18 04:00 02/26/18 08:00 Temperature 97.8 F 98.0 F 97.7 F Pulse Rate 64 72 69 Respiratory Rate 20 20 20 Blood Pressure 138/65 116/81 135/65 Pulse Oximetry 99 93 L 96 Intake & Output 02/25/18 02/26/18 02/26/18 18:59 06:59 18:59 Intake Total 1700 / 1700 1063 / 1063 Output Total 954 / 954 300 / 300 Balance 746 / 746 1063 / 1063 -300 / -300 Weight 117.8 kg Intake: IV 100 / 100 400 / 400 NS Inj 1,000 ML @ 60 mls/hr IV. 300 / 300 CONT .[id number] [facility] Rx#:[id number] Zosyn 3.375 GM Premix 50 ML @ 100 / 100 100 / 100 100 mls/hr IV.SIG Q6H [facility] Rx#: [id number] Oral 1600 / 1600 663 / 663 Output: Urine 953 / 953 300 / 300 Stool 1 / 1 Other: Mode Setting Right Lower Foot Continuous Date of Last Bowel Movement 02/25/18 02/25/18 # Bowel Movements 1 Narrative: GENERAL: in no apparent distress. HEAD: Atraumatic. EYES: Pupils equal round and reactive. ENT: Airway patent. NECK: Trachea midline. RESPIRATORY: Nonlabored breathing. MUSCULOSKELETAL:. Negative Homans sign bilaterally. NEUROLOGICAL: Awake and alert. Normal speech. Right foot- absent 2nd toe, base of the left metatarsal area - open wound- edges, clean - no necrotic tissue, minimal drainage, non foul right lower 3rd leg- small area of erythema- no induration- medial aspect of the calf, no calf tenderness, good peripheral pulses Results - Labs CBC & Chem 7: 02/25/18 08:57 02/26/18 05:51 Laboratory Results - last 24 hr 10/08/18 10/08/18 10/08/18 08:57 08:57 08:57 WBC 7.3 RBC 4.10 L Hgb 12.1 L Hct 36.2 L MCV 88.3 MCH 29.6 MCHC 33.5 RDW 13.9 Plt Count 324 MPV 8.0 Neut % (Auto) 76.4 H Lymph % (Auto) 10.6 [place] % (Auto) 6.9 Eos % (Auto) 5.4 H Baso % (Auto) 0.7 Neut # (Auto) 5.5 Lymph # (Auto) 0.8 L [place] # (Auto) 0.5 Eos # (Auto) 0.4 Baso # (Auto) 0.0 WBC Differential . Differential Comment Auto diff final Sodium 138 Potassium 4.3 Chloride 101 Carbon Dioxide 25.5 Anion Gap 12 BUN 12 Creatinine 1.49 H Estimated GFR 48 L POC Glucose Random Glucose 178 H Hemoglobin A1c 12.2 H Calcium 8.9 02/25/18 02/25/18 02/25/18 11:21 16:36 21:44 WBC RBC Hgb Hct MCV MCH MCHC RDW Plt Count MPV Neut % (Auto) Lymph % (Auto) [place] % (Auto) Eos % (Auto) Baso % (Auto) Neut # (Auto) Lymph # (Auto) [place] # (Auto) Eos # (Auto) Baso # (Auto) WBC Differential Differential Comment Sodium Potassium Chloride Carbon Dioxide Anion Gap BUN Creatinine Estimated GFR POC Glucose 328 H 278 H 275 H Random Glucose Hemoglobin A1c Calcium 02/26/18 02/26/18 05:51 08:36 WBC RBC Hgb Hct MCV MCH MCHC RDW Plt Count MPV Neut % (Auto) Lymph % (Auto) [place] % (Auto) Eos % (Auto) Baso % (Auto) Neut # (Auto) Lymph # (Auto) [place] # (Auto) Eos # (Auto) Baso # (Auto) WBC Differential Differential Comment Sodium Potassium Chloride Carbon Dioxide Anion Gap BUN Creatinine 1.44 H Estimated GFR 50 L POC Glucose 172 H Random Glucose Hemoglobin A1c Calcium Microbiology 02/25/18 12:30 Wound - Foot Gram Stain - Final 02/23/18 09:03 Abscess - Foot Acid Fast Bacilli Smear - Final No acid fast bacilli seen 02/23/18 09:03 Abscess - Foot Gram Stain - Final 02/23/18 09:03 Abscess - Foot Wound Culture - Final Group B beta Strep 02/21/18 12:15 Blood - Peripheral Aerobic Blood Culture - Preliminary No growth in 4 days 02/21/18 12:15 Blood - Peripheral Anaerobic Blood Culture - Preliminary No growth in 4 days 02/21/18 12:21 Blood - Peripheral Aerobic Blood Culture - Preliminary No growth in 4 days 02/21/18 12:21 Blood - Peripheral Anaerobic Blood Culture - Preliminary No growth in 4 days Assessment and Plan - Plan 62 years old male states recurrent right foot infection- 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 - ESR 63/ CRP 14.4 - Podiatry ff - ID service ff- currently on Zosyn. Vanco was DC 02/24 - kit D/W ID- change to Unasyn - PT daily- patient has walker at home - Doppler US- negative for DVT Acute kidney injury likely with underlying CKI- creatinine improved from 02/23 - 4.09- (? lab error - A1c 5.0- error) - creatinine- enar baseline - DC IVF and montior - goo po intake - DM type 2- repeat HgbA1c 12.2 (the earlier 02/23 - A1C- 5.5 likely an lab error ) - states his Last A1C was 12- 2 months ago . - per patient home regimen on lantus 90 unist HS and Novolog sliding scale + metformin 1 gm bid -state good hypoglycemic awareness -accucheck with sliding scael coverage -Increase HS 40 Levemer . start am Levemer 15 units q am - DC Metformin with SETH CAD- s/p CABG - continue home meds - DC planning- will d/w ID- re antibiotic regimen -DVT prophylaxis with subq Heparin.
[2018-02-26] MEDS: Insulin NovoLOG Aspart Correctional Sugar Inj SQ SCH ×4 (11:06→21:19)
--- NOTE | 2018-02-26 14:59 | P.PNPOD ---
Subjective Interval history: s/p right foot I&D with . Pt states he feels the wound is healing well. He denies any n/v/f/h/c/sob. Physical Exam Vital signs: Vital Signs 02/25/18 16:00 02/25/18 20:00 02/26/18 00:00 Temperature 97.8 F 97.9 F 97.8 F Pulse Rate 67 70 64 Respiratory Rate 20 18 20 Blood Pressure 132/64 156/70 H 138/65 Pulse Oximetry 95 96 99 02/26/18 04:00 02/26/18 08:00 02/26/18 12:00 Temperature 98.0 F 97.7 F 98.2 F Pulse Rate 72 69 87 Respiratory Rate 20 20 20 Blood Pressure 116/81 135/65 121/65 Pulse Oximetry 93 L 96 98 Intake & Output 02/25/18 02/26/18 02/26/18 18:59 06:59 18:59 Intake Total 1700 / 1700 1063 / 1063 1230 / 1230 Output Total 954 / 954 303 / 303 Balance 746 / 746 1063 / 1063 927 / 927 Weight 117.8 kg Intake: IV 100 / 100 400 / 400 750 / 750 NS Inj 1,000 ML @ 60 mls/hr IV. 300 / 300 700 / 700 CONT .[id number] [facility] Rx#:[id number] Zosyn 3.375 GM Premix 50 ML @ 100 / 100 100 / 100 50 / 50 100 mls/hr IV.SIG Q6H [facility] Rx#: [id number] Oral 1600 / 1600 663 / 663 480 / 480 Output: Urine 953 / 953 303 / 303 Stool 1 / 1 Other: Mode Setting Right Lower Foot Continuous Date of Last Bowel Movement 02/25/18 02/25/18 # Bowel Movements 1 Narrative: Sutures intact, no erythema, mild serous drainage. Distal submet one wound 1.5cm x 1.5cm x 0, fibro granular wound bed. Proximal medial wound 0.75 x 0.75 x 1.5 lateral tunneling. Medications and Allergies Active Medications: Active Medications Acetaminophen (Tylenol) 650 mg PO Q4H PRN PRN Reason: fever/pain Last Admin: 02/25/18 03:59 Dose: 650 mg Cetirizine HCl (Zyrtec) 10 mg PO Q24H [facility] Last Admin: 02/25/18 21:51 Dose: 10 mg Dextrose (D50w Vial) 50 ml IV.PUSH UNSCH PRN PRN Reason: PER HYPOGLYCEMIA PROTOCOL Fenofibrate (Tricor) 145 mg PO DAILY [facility] Last Admin: 02/26/18 08:43 Dose: 145 mg Fluticasone Propionate (Flonase Nasal [place]) 1 spray EACH NARE Q24H [facility] Last Admin: 02/25/18 21:42 Dose: 1 spray Furosemide (Lasix) 20 mg PO BID@0900,1800 [facility] Last Admin: 02/26/18 09:00 Dose: 20 mg Glucagon (Glucagon Inj) 1 mg OTHER PRN PRN PRN Reason: for Hypoglycemia Protocol Heparin Sodium (Porcine) (Heparin Inj) 5,000 units SQ Q12HR [facility] Last Admin: 02/26/18 08:43 Dose: 5,000 units Sodium Chloride (Ns Inj) 1,000 mls @ 60 mls/hr IV.CONT .[id number] [facility] Last Infusion: 02/26/18 11:07 Dose: Infused Ampicillin Sodium/Sulbactam (Sodium 3 gm/ Sodium Chloride) 100 mls @ 200 mls/ hr IV.SIG Q6H [facility] Insulin Aspart (Novolog Insulin Correctional Sugar Inj) 0 unit SQ ACHS [facility]; Protocol Last Admin: 02/26/18 13:20 Dose: 5 unit Insulin Detemir (Levemir Inj) 15 unit SQ 0800 [facility] Insulin Detemir (Levemir Inj) 40 unit SQ HS [facility] Lisinopril (Prinivil) 20 mg PO BID [facility] Last Admin: 02/26/18 08:43 Dose: 20 mg Allergies Allergy/AdvReac Type Severity Reaction Status Date / Time No Known Allergies Allergy Verified 02/21/18 11:40 Home Medications Medication Instructions Recorded Confirmed Type acetaminophen [Tylenol] 650 mg PO Q4H PRN 02/22/18 02/22/18 History aspirin 81 mg PO DAILY 02/22/18 02/22/18 History fenofibrate nanocrystallized 145 mg PO DAILY 02/22/18 02/22/18 History [Tricor] fexofenadine [So Allergy] 180 mg PO Q6HR 02/22/18 02/22/18 History furosemide [Lasix] 20 mg PO BID 02/22/18 02/22/18 History insulin aspart U-100 [Novolog 1 sliding scale dose SUBCUT UD 02/22/18 02/22/18 History U-100 Insulin aspart] insulin glargine [Lantus U-100 90 units HS 02/22/18 02/22/18 History Insulin] lisinopril 20 mg PO BID 02/22/18 02/22/18 History metformin 1,000 mg PO BID 02/22/18 02/22/18 History metoprolol tartrate 25 mg PO BID 02/22/18 02/22/18 History simvastatin 80 mg PO QPM 02/22/18 02/22/18 History sulfamethoxazole-trimethoprim 02/22/18 History Results - Labs CBC & Chem 7: 02/25/18 08:57 02/26/18 05:51 Laboratory Results - last 24 hr 02/23/18 02/23/18 02/25/18 13:03 13:03 08:57 Sodium Potassium Chloride Carbon Dioxide Anion Gap BUN Creatinine Estimated GFR POC Glucose Random Glucose Hemoglobin A1c 12.2 H Calcium 02/25/18 02/25/18 02/26/18 16:36 21:44 05:51 Sodium Potassium Chloride Carbon Dioxide Anion Gap BUN Creatinine 1.44 H Estimated GFR 50 L POC Glucose 278 H 275 H Random Glucose Hemoglobin A1c Calcium 02/26/18 02/26/18 08:36 11:04 Sodium Potassium Chloride Carbon Dioxide Anion Gap BUN Creatinine Estimated GFR POC Glucose 172 H 257 H Random Glucose Hemoglobin A1c Calcium Microbiology 02/25/18 12:30 Wound - Foot Gram Stain - Final 02/25/18 12:30 Wound - Foot Wound Culture - Preliminary Moderate growth normal skin jovan at 24 hours. 02/25/18 14:32 Clean Catch Urine Urine Culture - Preliminary No growth in 24 hours 02/21/18 12:15 Blood - Peripheral Aerobic Blood Culture - Final No growth in 5 days 02/21/18 12:15 Blood - Peripheral Anaerobic Blood Culture - Final No growth in 5 days 02/21/18 12:21 Blood - Peripheral Aerobic Blood Culture - Final No growth in 5 days 02/21/18 12:21 Blood - Peripheral Anaerobic Blood Culture - Final No growth in 5 days 02/23/18 09:03 Abscess - Foot Acid Fast Bacilli Smear - Final No acid fast bacilli seen 02/23/18 09:03 Abscess - Foot Gram Stain - Final 02/23/18 09:03 Abscess - Foot Wound Culture - Final Group B beta Strep Assessment and Plan - Assessment (1) Cellulitis of foot Code(s): L03.119 - Cellulitis of unspecified part of limb Status: Acute - Plan -Strongly agree with ID plan for 6 weeks iv abx. Pt is hoping to avoid rehab and have infusions at home. Discussed with case reviewer who will check insurance and discuss options with patient. -OK to d/c wound VAC, wound care per nurse -severo Brooks working with PT -OK for d/c from podiatry standpoint once all arrangements are made -f/u with 5-7 days after d/c from hospital
[2018-02-26] MEDS ORDERED: Ampicillin/Sulbactam Inj 3 GM in Sodium Chloride 0.9% Inj 100 ML IV.SIG SCH (17:00)
--- NOTE | 2018-02-26 17:47 | P.PNID ---
Subjective Remarks: pt is afebrile tolerates abx OK no new co Antibiotics: unasyn Allergies/Adverse Reactions: Allergies No Known Allergies Allergy (Verified 02/21/18 11:40) Objective Vital Signs 02/25/18 20:00 02/26/18 00:00 02/26/18 04:00 Temperature 97.9 F 97.8 F 98.0 F Pulse Rate 70 64 72 Respiratory Rate 18 20 20 Blood Pressure 156/70 H 138/65 116/81 Pulse Oximetry 96 99 93 L 02/26/18 08:00 02/26/18 12:00 02/26/18 16:00 Temperature 97.7 F 98.2 F 97.5 F L Pulse Rate 69 87 69 Respiratory Rate 20 20 20 Blood Pressure 135/65 121/65 129/69 Pulse Oximetry 96 98 98 Intake & Output 02/25/18 02/26/18 02/26/18 18:59 06:59 18:59 Intake Total 1700 / 1700 1063 / 1063 1230 / 1230 Output Total 954 / 954 303 / 303 Balance 746 / 746 1063 / 1063 927 / 927 Weight 117.8 kg Intake: IV 100 / 100 400 / 400 750 / 750 NS Inj 1,000 ML @ 60 mls/hr IV. 300 / 300 700 / 700 CONT .[id number] [facility] Rx#:[id number] Zosyn 3.375 GM Premix 50 ML @ 100 / 100 100 / 100 50 / 50 100 mls/hr IV.SIG Q6H [facility] Rx#: [id number] Oral 1600 / 1600 663 / 663 480 / 480 Output: Urine 953 / 953 303 / 303 Stool 1 / Other: Mode Setting Right Lower Foot Continuous # Voids 4 Date of Last Bowel Movement 02/25/18 02/25/18 # Bowel Movements 1 02/25/18 12:30 Wound - Foot Gram Stain - Final 02/25/18 12:30 Wound - Foot Wound Culture - Preliminary Moderate growth normal skin jovan at 24 hours. 02/25/18 14:32 Clean Catch Urine Urine Culture - Preliminary No growth in 24 hours 02/21/18 12:15 Blood - Peripheral Aerobic Blood Culture - Final No growth in 5 days 02/21/18 12:15 Blood - Peripheral Anaerobic Blood Culture - Final No growth in 5 days 02/21/18 12:21 Blood - Peripheral Aerobic Blood Culture - Final No growth in 5 days 02/21/18 12:21 Blood - Peripheral Anaerobic Blood Culture - Final No growth in 5 days 02/23/18 09:03 Abscess - Foot Acid Fast Bacilli Smear - Final No acid fast bacilli seen 02/23/18 09:03 Abscess - Foot Mycobacterial Culture - Pending 02/23/18 09:03 Abscess - Foot Gram Stain - Final 02/23/18 09:03 Abscess - Foot Wound Culture - Final Group B beta Strep 02/23/18 09:03 Abscess - Foot Fungal Smear - Final No fungal elements seen 02/23/18 09:03 Abscess - Foot Fungal Culture - Pending Lab - Hematology Results 02/25/18 08:57 WBC 7.3 RBC 4.10 L Hgb 12.1 L Hct 36.2 L MCV 88.3 MCH 29.6 MCHC 33.5 RDW 13.9 Plt Count 324 MPV 8.0 Neut % (Auto) 76.4 H Lymph % (Auto) 10.6 [place] % (Auto) 6.9 Eos % (Auto) 5.4 H Baso % (Auto) 0.7 Neut # (Auto) 5.5 Lymph # (Auto) 0.8 L [place] # (Auto) 0.5 Eos # (Auto) 0.4 Baso # (Auto) 0.0 WBC Differential . Differential Comment Auto diff final Lab - Chemistry Results 02/23/18 02/23/18 02/24/18 13:03 13:03 20:43 Sodium Potassium Chloride Carbon Dioxide Anion Gap BUN Creatinine Estimated GFR POC Glucose 324 H Random Glucose Hemoglobin A1c Calcium 02/25/18 02/25/18 02/25/18 07:10 08:57 08:57 Sodium 138 Potassium 4.3 Chloride 101 Carbon Dioxide 25.5 Anion Gap 12 BUN 12 Creatinine 1.49 H Estimated GFR 48 L POC Glucose 180 H Random Glucose 178 H Hemoglobin A1c 12.2 H Calcium 8.9 02/25/18 02/25/18 02/25/18 11:21 16:36 21:44 Sodium Potassium Chloride Carbon Dioxide Anion Gap BUN Creatinine Estimated GFR POC Glucose 328 H 278 H 275 H Random Glucose Hemoglobin A1c Calcium 02/26/18 02/26/18 02/26/18 05:51 08:36 11:04 Sodium Potassium Chloride Carbon Dioxide Anion Gap BUN Creatinine 1.44 H Estimated GFR 50 L POC Glucose 172 H 257 H Random Glucose Hemoglobin A1c Calcium Imaging: ITS Impressions Foot MRI 02/21/18 11:54 CONCLUSION: 1. Ulceration and soft tissue swelling along the volar tissues adjacent to the first metatarsal-phalangeal joint region. 2. Normal marrow signal with no evidence of osteomyelitis. 3. 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 Foot X-Ray 02/21/18 11:54 CONCLUSION: 1. Soft tissue swelling and ulceration along the volar aspect of the metatarsal head region. 2. No underlying bony abnormality. 3. Status post amputation of the second digit. Venous Doppler Study 02/24/18 00:00 CONCLUSION: 1. No evidence of DVT. Physical Exam: GENERAL: NAD SKIN: Warm and dry. no rash EYES: P No scleral icterus. ENT: Mucous membranes pink and moist. RESPIRATORY: No accessory muscle use. Breathing unlaboured GASTROINTESTINAL: Abdomen soft, non-tender, nondistended. Hepatic and splenic margins not palpable. MUSCULOSKELETAL: Extremities without clubbing, cyanosis, or edema. R foot looks better wound looks dryer erythema is less no ascending lymphagitis or cellulits NEUROLOGICAL: Awake and alert. 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
--- NOTE | 2018-02-26 17:50 | P.DCO ---
Post Hospital Infusion Therapy - Infusion Therapy Location of Infusion Therapy: [facility] Infusion Therapy Order - Patient Information Patient Weight: 117.8 kg - Diagnosis (1) Diabetic foot infection Code(s): E11.628 - Type 2 diabetes mellitus with other skin complications; L08.9 - Local infection of the skin and subcutaneous tissue, unspecified - Administer Medication Cefazolin Dose: 2 grams IV Directions: q 8 hours Start Treatment: 02/27/18 Stop Treatment: 04/05/18 - Additional Information Venous Access: PICC Line Additional Instructions: [x] Peripheral flush and dressing changes per protocol [x] 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 [] May leave port accessed during therapy. [] May leave peripheral site accessed for duration of therapy. [x] If patient has SOB or respiratory distress, check oxygen saturation. If less than 90% or clinical signs of respiratory distress, administer oxygen at 2 L/min. via nasal cannula and notify physician. [x] Anaphylaxis/Reaction orders: * Stop infusion. * Keep IV line open with saline flush. * Notify physician. * Monitor vital signs every 15 minutes until symptoms resolve. * Check Oxygen saturation; Oxygen at 2 L/min. via nasal cannula if less than 90% or clinical signs of respiratory distress. * Administer diphenhydramine (Benadryl) 25 mg IV STAT, (unless patient has received as pre-med). May repeat once, if necessary. * Solu-Cortef 250 mg IVP over 30-60 seconds, use 100 mg vials for each dissolution. * Epinephrine (1mg/1 ml) 0.3 mg subcutaneously or IVP now with any signs of respiratory distress. * Check with physician for new additional pre-med orders if patient is re- challenged or re-treated. [x] May remove PICC line when treatment complete, after confirming with Physician. [x] If the patient is admitted to the hospital, the ED, or transferred via [facility] , complete transfer form including medication reconciliation order sheet. Weekly Labs: CBC w/diff, Creatinine, CRP, SED Rate - Patient Information Allergies No Known Allergies Allergy (Verified 02/21/18 11:40)
[2018-02-26] MEDS ORDERED: ceFAZolin Inj 2,000 MG in Sodium Chlor 0.9% Inj 80 ML IV.SIG SCH (18:00)
[2018-02-26] MEDS: Sod Chloride 0.9% Inj 1,000 ML IV.CONT SCH (19:36)
[2018-02-26] MEDS: ceFAZolin 2 GM Premix Inj 2 GM/50 ML PIGGYBACK IV.SIG SCH (19:36)
[2018-02-26] MEDS: Insulin Detemir Inj 1,000 UNIT/10 ML Vial SQ SCH (21:18)
[2018-02-27] MEDS: ceFAZolin 2 GM Premix Inj 2 GM/50 ML PIGGYBACK IV.SIG SCH ×3 (02:53→17:18)
[2018-02-27] MEDS: Lisinopril 20 MG Tablet PO SCH ×2 (08:29→21:55)
[2018-02-27] MEDS: Fenofibrate 145 MG Tablet PO SCH (08:29)
[2018-02-27] MEDS: Furosemide 20 MG Tablet PO SCH ×2 (08:29→17:21)
[2018-02-27] MEDS: Heparin - SQ 10,000 UNITS/ML Vial SQ SCH ×2 (08:29→21:56)
[2018-02-27] MEDS: Insulin Detemir Inj 1,000 UNIT/10 ML Vial SQ SCH ×2 (08:30→21:56)
[2018-02-27] MEDS: Insulin NovoLOG Aspart Correctional Sugar Inj SQ SCH ×4 (08:30→21:57)
[2018-02-27] MEDS: Sod Chloride 0.9% Inj 1,000 ML IV.CONT SCH ×2 (10:26→18:06)
[2018-02-27] MEDS ORDERED: Heparin Central Flush 100 UNIT/ML 5 ML Vial IV.FLUSH PRN (10:44)
--- NOTE | 2018-02-27 11:21 | XR ---
EXAM DATE: 02/27/2018 10:29 AM EDT AGE/SEX: 62 years / Male INDICATIONS: Picc line placement. CLINICAL DATA: This is the patient's subsequent encounter. Patient reports that signs and symptoms h ave been present for 3 days and indicates a pain score of 0/10. MEDICAL/SURGICAL HISTORY: Cardiovascular disease. Diabetes mellitus type II. Hypertension. CA BG. COMPARISON: [facility], CHEST PA & LAT, 12/02/2016. . FINDINGS: 2 portable frontal views of the chest reveal a right-sided PICC line. Tip is at the cavoatrial juncti on. Median sternotomy wires and coronary markers are noted. Mild cardiomegaly. Lungs are clear withou t infiltrate or effusion. CONCLUSION: Right-sided PICC line in good position. Electronically signed by: Rolando Cam MD 02/27/2018 11:20 AM EDT
[2018-02-27] MEDS: Heparin Central Flush 100 UNIT/ML 5 ML Vial IV.FLUSH SCH (12:44)
--- NOTE | 2018-02-27 14:59 | P.PNIM ---
Subjective Interval history: PICC line is in place. Arrangements for penitentiary facility in process. Patient has no new complaints. Pain control in place. Physical Exam Vital signs: Vital Signs 02/26/18 16:00 02/26/18 20:00 02/27/18 00:00 Temperature 97.5 F L 98.1 F 97.8 F Pulse Rate 69 79 68 Respiratory Rate 20 18 18 Blood Pressure 129/69 134/68 147/65 H Pulse Oximetry 98 97 98 02/27/18 04:00 02/27/18 08:00 Temperature 97.8 F 97.7 F Pulse Rate 60 79 Respiratory Rate 18 16 Blood Pressure 151/70 H 148/69 H Pulse Oximetry 96 98 Intake & Output 02/26/18 02/27/18 02/27/18 18:59 06:59 18:59 Intake Total 1230 / 1230 200 / 200 50 / 50 Output Total 303 / 303 600 / 600 Balance 927 / 927 -400 / -400 50 / 50 Weight 117.8 kg 119.8 kg Intake: IV 750 / 750 200 / 200 50 / 50 NS Inj 1,000 ML @ 60 mls/hr IV. 700 / 700 CONT .[id number] [facility] Rx#:[id number] Unasyn Inj 3 GM In NS Inj 100 100 / 100 ML @ 200 mls/hr IV.SIG Q6H [facility] Rx#:[id number] Zosyn 3.375 GM Premix 50 ML @ 50 / 50 100 mls/hr IV.SIG Q6H [facility] Rx#: [id number] Ancef 2 GM Premix Inj 2 gm In 100 / 100 50 / 50 50 ml @ 100 mls/hr IV.SIG Q8H [facility] Rx#:[id number] Oral 480 / 480 Output: Urine 303 / 303 600 / 600 Other: # Voids 4 0 Date of Last Bowel Movement 02/26/18 02/26/18 Narrative: GENERAL: NAD, A&Ox3 HEAD: Normocephalic. NECK: Supple, trachea midline. No lymphadenopathy. EYES: No scleral icterus. No injection or drainage. CARDIOVASCULAR: Regular rate and rhythm without murmurs, gallops, or rubs. RESPIRATORY: Breath sounds equal bilaterally. No accessory muscle use. GASTROINTESTINAL: Abdomen soft, non-tender, nondistended. MUSCULOSKELETAL: No cyanosis, or edema. Right foot bandaged. SKIN: Warm and dry. NEURO: No focal neurological deficits. Results - Labs CBC & Chem 7: 02/25/18 08:57 02/26/18 05:51 Laboratory Results - last 24 hr 02/26/18 02/26/18 02/27/18 19:13 21:06 08:09 POC Glucose 335 H 336 H 198 H 02/27/18 12:14 POC Glucose 247 H Microbiology 02/25/18 14:32 Clean Catch Urine Urine Culture - Final No growth in 48 hours 02/25/18 12:30 Wound - Foot Gram Stain - Final 02/25/18 12:30 Wound - Foot Wound Culture - Preliminary Moderate growth normal skin jovan at 24 hours. 02/21/18 12:15 Blood - Peripheral Aerobic Blood Culture - Final No growth in 5 days 02/21/18 12:15 Blood - Peripheral Anaerobic Blood Culture - Final No growth in 5 days 02/21/18 12:21 Blood - Peripheral Aerobic Blood Culture - Final No growth in 5 days 02/21/18 12:21 Blood - Peripheral Anaerobic Blood Culture - Final No growth in 5 days - Imaging Impressions Chest X-Ray 02/27/18 10:29 CONCLUSION: Right-sided PICC line in good position. Assessment and Plan - Plan 62-year-old male admitted secondary to right foot infection Right diabetic foot infection Outpatient treatment failure Recurrent No ostium mellitus on MRI Continue Unasyn Acute kidney injury Monitor renal function Avoid nephrotoxins Diabetes mellitus type 2 Follow blood sugars Insulin sliding scale Diabetic diet Continue Levemir And adjust treatments as needed CAD s/p CABG No change in baseline treatments DVT prophylaxis Heparin Discharge planning Awaiting arrangements for penitentiary facility
[2018-02-28] MEDS: ceFAZolin 2 GM Premix Inj 2 GM/50 ML PIGGYBACK IV.SIG SCH ×3 (02:26→17:45)
[2018-02-28] MEDS: Sod Chloride 0.9% Inj 1,000 ML IV.CONT SCH ×2 (02:27→18:02)
[2018-02-28] MEDS: Heparin Central Flush 100 UNIT/ML 5 ML Vial IV.FLUSH SCH (09:09)
[2018-02-28] MEDS: Heparin - SQ 10,000 UNITS/ML Vial SQ SCH ×2 (09:09→21:11)
[2018-02-28] MEDS: Lisinopril 20 MG Tablet PO SCH ×2 (09:09→21:11)
[2018-02-28] MEDS: Furosemide 20 MG Tablet PO SCH ×2 (09:09→17:44)
[2018-02-28] MEDS: Fenofibrate 145 MG Tablet PO SCH (09:09)
[2018-02-28] MEDS: Insulin Detemir Inj 1,000 UNIT/10 ML Vial SQ SCH ×2 (09:10→21:09)
[2018-02-28] MEDS: Insulin NovoLOG Aspart Correctional Sugar Inj SQ SCH ×4 (09:10→21:10)
--- NOTE | 2018-02-28 13:55 | P.DS ---
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 he says that he's had a wound on the bottom of his right foot for about a year and half. he says that he started to notice some swelling and redness of the right foot two days ago which gradually got worse. he has minimal to mild pain at the site. he denies any fever or chills. he says that he was seen by today and was sent to ER for further evaluation. DS: Medications - Discharge Medications Prescriptions: Lactobacillus acidophilus 500 mmu cells PO BID #60 cap DS: Summary Hospital Course: Mr. Ruiz is a 62-year-old male. He has diabetes at baseline. He has a history of diabetic foot infections. He has had foot infections on the right and comes in the hospital with a right diabetic foot infection. Podiatry has manage this. Right Foot I&D and Debridement. At this point he is medically stable for continuation of antibiotics. Due to the recurrent nature of this infection ID has selected 6 weeks of IV antibiotics. PICC line has been placed in arrangements for fdc facility are in assist. Patient's medically stable for discharge today and cleared for discharge once fdc facility arrangements are completed. - Time Spent with Patient Total time spent providing and/or coordinating discharge services: Greater than 30 minutes - Quality: VTE Deep Vein Thrombosis/Pulmonary Embolism Present on Admission: No Exam Vital signs: Vital Signs 02/27/18 16:00 02/27/18 20:00 02/28/18 00:00 Temperature 97.7 F 97.3 F L 97.3 F L Pulse Rate 56 L 102 H 67 Respiratory Rate 16 18 20 Blood Pressure 144/74 H 117/58 L 127/63 Pulse Oximetry 96 99 97 02/28/18 04:00 02/28/18 08:00 02/28/18 12:00 Temperature 97.9 F 97.9 F 97.3 F L Pulse Rate 67 69 66 Respiratory Rate 20 18 18 Blood Pressure 154/67 H 140/63 147/75 H Pulse Oximetry 98 94 L 96 Intake & Output 10/10/18 10/11/18 10/11/18 18:59 06:59 18:59 Intake Total 2080 / 2080 1910 / 1910 50 / 50 Output Total 900 / 900 2900 / 2900 Balance 1180 / 1180 -990 / -990 50 / 50 Weight 120 kg Intake: IV 1100 / 1100 1050 / 1050 50 / 50 NS Inj 1,000 ML @ 60 mls/hr IV. 1000 / 1000 1000 / 1000 CONT .[id number] [facility] Rx#:[id number] Ancef 2 GM Premix Inj 2 gm In 100 / 100 50 / 50 50 / 50 50 ml @ 100 mls/hr IV.SIG Q8H [facility] Rx#:[id number] Oral 980 / 980 860 / 860 Output: Urine 900 / 900 2900 / 2900 Other: Date of Last Bowel Movement 02/27/18 02/26/18 02/28/18 Results Procedures completed during hospitalization: Right Foot I&D and Debridement Labs on day of discharge: Labs from last 24 hours 02/28/18 02/28/18 02/27/18 13:10 07:34 20:09 POC Glucose 320 H 180 H 290 H 02/27/18 16:43 POC Glucose 261 H - Impressions ITS Impressions Foot MRI 02/21/18 11:54 CONCLUSION: 1. Ulceration and soft tissue swelling along the volar tissues adjacent to the first metatarsal-phalangeal joint region. 2. Normal marrow signal with no evidence of osteomyelitis. 3. 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 Foot X-Ray 02/21/18 11:54 CONCLUSION: 1. Soft tissue swelling and ulceration along the volar aspect of the metatarsal head region. 2. No underlying bony abnormality. 3. Status post amputation of the second digit. Venous Doppler Study 02/24/18 00:00 CONCLUSION: 1. No evidence of DVT. Chest X-Ray 02/27/18 10:29 CONCLUSION: Right-sided PICC line in good position. Discharge Plan - Discharge Disposition Patient Disposition: Discharge to SNF - Discharge Condition Condition: Stable - Discharge Order Discharge Orders: Discharge Order (Routine); Ordered 02/28/18 Ordered By: Tong Goff - Discharge Details Anticipated Discharge Date: 02/28/18 - Physicians Team Attending Provider: Tong Goff Other Providers: Candace Abraham DPM ; Marisel Cheema MD ; Zuri Villafuerte, Agency
[2018-03-01] MEDS: ceFAZolin 2 GM Premix Inj 2 GM/50 ML PIGGYBACK IV.SIG SCH ×2 (01:54→09:37)
[2018-03-01] MEDS: Insulin Detemir Inj 1,000 UNIT/10 ML Vial SQ SCH (08:59)
[2018-03-01] MEDS: Insulin NovoLOG Aspart Correctional Sugar Inj SQ SCH ×2 (08:59→13:24)
[2018-03-01] MEDS: Heparin Central Flush 100 UNIT/ML 5 ML Vial IV.FLUSH SCH (09:01)
[2018-03-01] MEDS: Heparin - SQ 10,000 UNITS/ML Vial SQ SCH (09:01)
[2018-03-01] MEDS: Fenofibrate 145 MG Tablet PO SCH (09:01)
[2018-03-01] MEDS: Lisinopril 20 MG Tablet PO SCH (09:01)
[2018-03-01] MEDS: Furosemide 20 MG Tablet PO SCH (09:02)
--- NOTE | 2018-03-01 10:40 | P.PNIM ---
Subjective Interval history: Patient medically discharged 02/28/18. Awaiting SNF placement. Physical Exam Vital signs: Vital Signs 02/28/18 12:00 02/28/18 16:00 02/28/18 20:00 Temperature 97.3 F L 97.6 F 97.8 F Pulse Rate 66 66 62 Respiratory Rate 18 18 20 Blood Pressure 147/75 H 119/81 140/64 Pulse Oximetry 96 98 99 03/01/18 00:00 03/01/18 04:00 03/01/18 08:00 Temperature 98.3 F 97.6 F 98.2 F Pulse Rate 65 65 66 Respiratory Rate 20 20 18 Blood Pressure 131/60 157/64 H 141/66 H Pulse Oximetry 95 97 98 Intake & Output 02/28/18 03/01/18 03/01/18 18:59 06:59 18:59 Intake Total 1250 / 1250 100 / 100 0 / 0 Output Total 1000 / 1000 Balance 250 / 250 100 / 100 0 / 0 Weight 118.5 kg Intake: IV 50 / 50 100 / 100 0 / 0 NS Inj 1,000 ML @ 60 mls/hr IV. 0 / 0 CONT .[id number] [facility] Rx#:[id number] Ancef 2 GM Premix Inj 2 gm In 50 / 50 100 / 100 50 ml @ 100 mls/hr IV.SIG Q8H [facility] Rx#:[id number] Oral 1200 / 1200 Output: Urine 1000 / 1000 Other: # Voids 2 Date of Last Bowel Movement 02/28/18 02/28/18 # Bowel Movements 1 2 Narrative: GENERAL: NAD, A&Ox3 HEAD: Normocephalic. NECK: Supple, trachea midline. No lymphadenopathy. EYES: No scleral icterus. No injection or drainage. CARDIOVASCULAR: Regular rate and rhythm without murmurs, gallops, or rubs. RESPIRATORY: Breath sounds equal bilaterally. No accessory muscle use. GASTROINTESTINAL: Abdomen soft, non-tender, nondistended. MUSCULOSKELETAL: No cyanosis, or edema. Right foot bandaged. SKIN: Warm and dry. NEURO: No focal neurological deficits. Results - Labs CBC & Chem 7: 02/25/18 08:57 02/26/18 05:51 Laboratory Results - last 24 hr 02/28/18 02/28/18 02/28/18 13:10 16:45 20:43 POC Glucose 320 H 253 H 223 H 03/01/18 07:38 POC Glucose 187 H Microbiology 02/25/18 12:30 Wound - Foot Gram Stain - Final 02/25/18 12:30 Wound - Foot Wound Culture - Final Group B beta Strep - Procedures Right Foot I&D and Debridement Assessment and Plan - Plan 62-year-old male admitted secondary to right foot infection Doing well. Medically cleared for discharge on 02/28/18. Discharge to SNF when arrangements completed. Right diabetic foot infection Outpatient treatment failure Recurrent No ostium mellitus on MRI Continue Unasyn Acute kidney injury Monitor renal function Avoid nephrotoxins Diabetes mellitus type 2 Follow blood sugars Insulin sliding scale Diabetic diet Continue Levemir And adjust treatments as needed CAD s/p CABG No change in baseline treatments DVT prophylaxis Heparin Discharge planning Awaiting arrangements for [place] [facility] facility
[2018-03-01] MEDS: Sod Chloride 0.9% Inj 1,000 ML IV.CONT SCH (12:33)
[2018-03-01 12:46] VITALS: BP 132/64; PULSE 70; RESP 19; TEMP 97.8; O2SAT 95
== END 2018-03-01 16:55 ==
LOC: NEPC 11:31 → NEDA 15:13 → N05 16:26
PROVIDERS: ADMIT Hospitalist; ATTEND Hospitalist